=== PATIENT | male | born 1960 | race Hispanic/Latino ===

== ENCOUNTER 2017-04-27 05:04 | Emergency (ER) | payer MEDICARE ==
[2017-04-27 06:12] LABS: Basophils % (Auto) 0.9 % (0.0-1.8); Eosinophils % (Auto) 4.2 % (0.0-4.3); Hematocrit 38.3 % (35.5-45.6); Hemoglobin 12.7 gm/dl (11.8-15.2); Mean Corpuscular HGB Conc 33 % (32-34); Mean Corpuscular Hemoglobin 31 pg (28-32); Mean Corpuscular Volume 93 fl (84-94); Platelet Count 266 K/mm3 (140-440); Red Blood Count 4.11 M/mm3 (3.65-5.03); Red Cell Distribution Width 13.9 % (13.2-15.2); White Blood Count 10.7 K/mm3 (4.5-11.0)
[2017-04-27 06:21] LABS: Calcium 9.4 mg/dL (8.4-10.2); Potassium 4.9 mmol/L (3.6-5.0)
[2017-04-27 07:56] LABS: Urine Drugs of Abuse Note Disclamer
[2017-04-27 08:07] LABS: Bilirubin,Urine NEG (Negative); Blood,Urine NEG (Negative); Ketones,Urine NEG (Negative); Leukocyte Esterase,Urine NEG (Negative); Mucus,Urine FEW /HPF; Nitrite,Urine NEG (Negative); Protein,Urine <15 mg/dL mg/dL (Negative); Urobilinogen,Urine < 2.0 mg/dL (<2.0); WBC,Urine < 1.0 /HPF (0.0-6.0)
[2017-04-27 12:02] VITALS: BP 128/79
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
== END 2017-04-27 14:52 | disposition home or self-care (01) ==
LOC: ED 05:04
DX: F29 Unspecified psychosis not due to a substance or known physiological condition (principal); E11.9 Type 2 diabetes mellitus without complications
CPT/HCPCS: 36415; 80048; 80307; 81001; 85025; 99284; G0480; 80320

== ENCOUNTER 2018-02-08 09:14 | Emergency (ER) | payer MEDICARE ==
[2018-02-08 09:57] VITALS: BP 134/82
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
== END 2018-02-08 14:40 | disposition home or self-care (01) ==
LOC: ED 09:14
DX: F91.8 Other conduct disorders (principal); E11.9 Type 2 diabetes mellitus without complications; Z86.73 Personal history of transient ischemic attack (TIA), and cerebral infarction without residual deficits
CPT/HCPCS: 99282

== ENCOUNTER 2018-02-09 10:49 | Emergency (ER) | payer MEDICARE ==
[2018-02-09 12:30] LABS: Basophils # (Auto) 0.1 K/mm3 (0.0-0.1); Basophils % (Auto) 0.5 % (0.0-1.8); Eosinophils # (Auto) 0.4 K/mm3 (0.0-0.4); Hematocrit 39.7 % (35.5-45.6); Hemoglobin 13.6 gm/dl (11.8-15.2); Lymphocytes # (Auto) 1.2 K/mm3 (1.2-5.4); Lymphocytes % (Auto) 11.3 % (13.4-35.0); Mean Corpuscular HGB Conc 34 % (32-34); Mean Corpuscular Hemoglobin 31 pg (28-32); Mean Corpuscular Volume 90 fl (84-94); Monocytes # (Auto) 0.4 K/mm3 (0.0-0.8); Monocytes % (Auto) 3.9 % (0.0-7.3); Platelet Count 306 K/mm3 (140-440); Red Blood Count 4.39 M/mm3 (3.65-5.03); Red Cell Distribution Width 13.9 % (13.2-15.2)
[2018-02-09 13:04] LABS: Albumin 4.1 g/dL (3.9-5); Calcium 9.6 mg/dL (8.4-10.2)
[2018-02-09] MEDS ORDERED: NACL 0.9% 1000 ML 1,000 ML IV ONE (15:06)
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
== END 2018-02-09 17:42 | disposition home or self-care (01) ==
LOC: ED 10:49
DX: F91.9 Conduct disorder, unspecified (principal); R19.7 Diarrhea, unspecified; F43.9 Reaction to severe stress, unspecified; E11.9 Type 2 diabetes mellitus without complications; Z86.73 Personal history of transient ischemic attack (TIA), and cerebral infarction without residual deficits
CPT/HCPCS: 36415; 80053; 85025; 96360; 99284; G0480; J7030; 80320

== ENCOUNTER 2018-09-29 02:56 | Emergency (ER) | payer MEDICARE ==
[2018-09-29 03:44] LABS: Hematocrit 39.1 % (35.5-45.6); Hemoglobin 13.4 gm/dl (11.8-15.2); Mean Corpuscular HGB Conc 34 % (32-34); Mean Corpuscular Volume 91 fl (84-94); Platelet Count 241 K/mm3 (140-440); Red Blood Count 4.31 M/mm3 (3.65-5.03); Red Cell Distribution Width 13.4 % (13.2-15.2)
[2018-09-29 03:47] LABS: Bilirubin,Urine NEG (Negative); Blood,Urine NEG (Negative); Color,Urine Straw (Yellow); Mucus,Urine FEW /HPF; Urobilinogen,Urine < 2.0 mg/dL (<2.0)
[2018-09-29 04:00] LABS: BUN/Creatinine Ratio 19; Blood Urea Nitrogen 17 mg/dL (9-20); Calcium 9.2 mg/dL (8.4-10.2); Hemolysis Index 4
[2018-09-29] MEDS ORDERED: HumuLIN R IV ONE (04:04)
[2018-09-29] MEDS ORDERED: NACL 0.9% 1000 ML 1,000 ML IV ONE (04:04)
[2018-09-29 04:30] LABS: Basophils # (Auto) 0.1 K/mm3 (0.0-0.1); Basophils % (Auto) 0.9 % (0.0-1.8); Eosinophils # (Auto) 0.2 K/mm3 (0.0-0.4); Eosinophils % (Auto) 2.9 % (0.0-4.3); Lymphocytes # (Auto) 1.5 K/mm3 (1.2-5.4); Lymphocytes % (Auto) 18.6 % (13.4-35.0); Monocytes # (Auto) 0.4 K/mm3 (0.0-0.8); Monocytes % (Auto) 5.4 % (0.0-7.3)
[2018-09-29 05:05] LABS: Total Cells Counted 100
[2018-09-29 05:06] LABS: Large Platelets 1+; Platelet Estimate Consistent w Auto; RBC Morphology Normal
--- NOTE | 2018-09-29 05:22 | Emergency Department Report ---
- General Chief complaint: Skin Rash Stated complaint: RASH Time Seen by Provider: 09/29/18 03:04 Source: EMS Mode of arrival: Stretcher Limitations: No Limitations - History of Present Illness Initial comments: 55-year-old male presents to ED with complaint of rash to his back. Patient reports that it itches. Unknown onset . Patient denies fever. Denies any new product usage such as lotions, soaps, detergents, etc. Patient transported by EMS. Has history of diabetes, fingerstick was done by EMS and was found to be elevated. MD complaint: rash -: unknown Location: back Severity: mild Quality: other (itching) Consistency: constant Improves with: none Worsens with: none Context: none Associated symptoms: itching - Related Data Previous Rx's Medication Instructions Recorded Last Taken Type Diphenoxylate/Atropine [Lomotil] 1 tab PO Q8HR PRN #12 tablet 02/09/18 Unknown Rx Hydrocortisone 1% [Hydrocortisone 1 applicatio TP TID PRN #1 tube 09/29/18 Unknown Rx 1% CREAM] Allergies Allergy/AdvReac Type Severity Reaction Status Date / Time No Known Allergies Allergy Unverified 04/27/17 05:14 Abscess Boil HPI - HPI Chief Complaint: Skin Rash Stated Complaint: RASH Time Seen by Provider: 09/29/18 03:04 Home Medications: Previous Rx's Medication Instructions Recorded Last Taken Type Diphenoxylate/Atropine [Lomotil] 1 tab PO Q8HR PRN #12 tablet 02/09/18 Unknown Rx Hydrocortisone 1% [Hydrocortisone 1 applicatio TP TID PRN #1 tube 09/29/18 Unknown Rx 1% CREAM] Allergies/Adverse Reactions: Allergies Allergy/AdvReac Type Severity Reaction Status Date / Time No Known Allergies Allergy Unverified 04/27/17 05:14 ED Review of Systems ROS: Stated complaint: RASH Other details as noted in HPI Comment: All other systems reviewed and negative Constitutional: denies: chills, fever Gastrointestinal: denies: nausea, vomiting Musculoskeletal: denies: arthralgia Skin: rash ED Past Medical Hx - Past Medical History Hx CVA: Yes Hx Diabetes: Yes Additional medical history: Brain Injury/hemm - Surgical History Additional Surgical History: abscess removed from R frontal lobe 11/2002, CVA X2 2002, 2006, left thumb - Social History Smoking Status: Never Smoker Substance Use Type: None - Medications Home Medications: Home Medications Medication Instructions Recorded Confirmed Last Taken Type Diphenoxylate/Atropine [Lomotil] 1 tab PO Q8HR PRN #12 tablet 02/09/18 Unknown Rx Hydrocortisone 1% [Hydrocortisone 1 applicatio TP TID PRN #1 tube 09/29/18 Unknown Rx 1% CREAM] ED Physical Exam - General Limitations: No Limitations General appearance: alert, in no apparent distress - Head Head exam: Present: atraumatic, normocephalic - Eye Eye exam: Present: normal appearance - ENT ENT exam: Present: mucous membranes moist - Neck Neck exam: Present: normal inspection - Respiratory Respiratory exam: Present: normal lung sounds bilaterally. Absent: respiratory distress - Cardiovascular Cardiovascular Exam: Present: regular rate, normal rhythm - GI/Abdominal GI/Abdominal exam: Present: soft. Absent: distended - Extremities Exam Extremities exam: Present: full ROM - Back Exam Back exam: Present: full ROM - Neurological Exam Neurological exam: Present: alert, oriented X3 - Psychiatric Psychiatric exam: Present: normal affect, normal mood - Skin Skin exam: Present: warm, dry, rash (erythematous, dry, excoriated) ED Course Vital Signs 09/29/18 09/29/18 03:00 09:33 Temperature 98.3 F 98.2 F Pulse Rate 78 88 Respiratory 20 16 Rate Blood Pressure 153/80 Blood Pressure 153/80 145/82 [Right] O2 Sat by Pulse 96 99 Oximetry ED Medical Decision Making - Lab Data Result diagrams: 09/29/18 03:29 09/29/18 03:29 - Medical Decision Making 58 yo male presented to the ED with rash, however found to be hyperglycemic with glucose in the 400s. Patient not in DKA. IV fluids and insulin given. Glucose did improve. Patient discharged home with prescription for topical steroid cream for rash. - Differential Diagnosis hyperglycemia, DKA, dermatitis Critical care attestation.: If time is entered above; I have spent that time in minutes in the direct care of this critically ill patient, excluding procedure time. ED Disposition Clinical Impression: Dermatitis, Hyperglycemia Disposition: DC-01 TO HOME OR SELFCARE Is pt being admited?: No Condition: Stable Instructions: Contact Dermatitis (ED), Diabetic Hyperglycemia (ED) Prescriptions: Hydrocortisone 1% [Hydrocortisone 1% CREAM] 1 applicatio TP TID PRN #1 tube PRN Reason: Rash Referrals: PRIMARY CARE, [Primary Care Provider] - 3-5 Days [facility] [Provider Group] - 3-5 Days Time of Disposition: 05:21
[2018-09-29 09:34] VITALS: BP 145/82
== END 2018-09-29 09:34 | disposition home or self-care (01) ==
LOC: ED 02:56
DX: L30.9 Dermatitis, unspecified (principal); E11.65 Type 2 diabetes mellitus with hyperglycemia; Z86.73 Personal history of transient ischemic attack (TIA), and cerebral infarction without residual deficits
CPT/HCPCS: 36415; 80048; 81001; 82805; 82962; 85007; 85025; 96361; 96374; 99284; J7030; J1815

== ENCOUNTER 2018-11-26 00:06 | Emergency (ER) | payer MEDICARE ==
[2018-11-26] MEDS ORDERED: NACL 0.9% 1000 ML 1,000 ML IV ONE (00:57)
[2018-11-26] MEDS ORDERED: LANTUS SUB-Q ONE (00:59)
[2018-11-26 01:06] LABS: Basophils # (Auto) 0.1 K/mm3 (0.0-0.1); Basophils % (Auto) 0.7 % (0.0-1.8); Eosinophils # (Auto) 0.2 K/mm3 (0.0-0.4); Hematocrit 38.3 % (35.5-45.6); Hemoglobin 13.3 gm/dl (11.8-15.2); Lymphocytes # (Auto) 1.7 K/mm3 (1.2-5.4); Lymphocytes % (Auto) 20.6 % (13.4-35.0); Mean Corpuscular HGB Conc 35 % (32-34); Mean Corpuscular Volume 89 fl (84-94); Monocytes # (Auto) 0.5 K/mm3 (0.0-0.8); Monocytes % (Auto) 6.1 % (0.0-7.3); Platelet Count 217 K/mm3 (140-440); Red Blood Count 4.29 M/mm3 (3.65-5.03); Red Cell Distribution Width 13.6 % (13.2-15.2)
[2018-11-26 01:24] LABS: Alanine Aminotransferase 11 units/L (7-56); Albumin 3.5 g/dL (3.9-5); BUN/Creatinine Ratio 19; Blood Urea Nitrogen 19 mg/dL (9-20); Calcium 9.2 mg/dL (8.4-10.2); Hemolysis Index 4
[2018-11-26] MEDS ORDERED: HumuLIN R IV ONE (01:43)
--- NOTE | 2018-11-26 01:56 | Emergency Department Report ---
ED General Adult HPI - General Chief complaint: Hyperglycemia Stated complaint: HYPERGLYCEMIA Time Seen by Provider: 11/26/18 00:35 Source: patient, EMS Mode of arrival: Stretcher Limitations: Physical Limitation - History of Present Illness Initial comments: Patient is a 58-year-old male past medical history of diabetes who presents with hyperglycemia. Patient states that he's been out of his insulin for a week patient denies having any pain any fevers and chills and his shortness of breath. Patient's blood sugar was 500 when he checked it. A few hours ago. Patient does not have any abdominal pain and vomiting - Related Data Previous Rx's Medication Instructions Recorded Last Taken Type Diphenoxylate/Atropine [Lomotil] 1 tab PO Q8HR PRN #12 tablet 02/09/18 Unknown Rx Hydrocortisone 1% [Hydrocortisone 1 applicatio TP TID PRN #1 tube 09/29/18 Unknown Rx 1% CREAM] Allergies Allergy/AdvReac Type Severity Reaction Status Date / Time No Known Allergies Allergy Verified 11/26/18 01:03 ED Review of Systems ROS: Stated complaint: HYPERGLYCEMIA Other details as noted in HPI Constitutional: denies: chills, fever Eyes: denies: eye pain, eye discharge, vision change ENT: denies: ear pain, throat pain Respiratory: denies: cough, shortness of breath, wheezing Cardiovascular: denies: chest pain, palpitations Endocrine: no symptoms reported Gastrointestinal: denies: abdominal pain, nausea, diarrhea Genitourinary: denies: urgency, dysuria Musculoskeletal: denies: back pain, joint swelling, arthralgia Skin: denies: rash, lesions Neurological: denies: headache, weakness, paresthesias Psychiatric: denies: anxiety, depression Hematological/Lymphatic: denies: easy bleeding, easy bruising ED Past Medical Hx - Past Medical History Previous Medical History?: Yes 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) Hx Diabetes: Yes Additional medical history: Brain Injury/hemm - Surgical History Past Surgical History?: Yes Additional Surgical History: abscess removed from R frontal lobe 11/2002, CVA X2 2002, 2006, left thumb 1981 - Social History Smoking Status: Never Smoker Substance Use Type: None - Medications Home Medications: Home Medications Medication Instructions Recorded Confirmed Last Taken Type Diphenoxylate/Atropine [Lomotil] 1 tab PO Q8HR PRN #12 tablet 02/09/18 Unknown Rx Hydrocortisone 1% [Hydrocortisone 1 applicatio TP TID PRN #1 tube 09/29/18 Unknown Rx 1% CREAM] ED Physical Exam - General Limitations: Physical Limitation General appearance: alert, in no apparent distress - Head Head exam: Present: atraumatic, normocephalic - Eye Eye exam: Present: normal appearance - ENT ENT exam: Present: mucous membranes moist - Neck Neck exam: Present: normal inspection - Respiratory Respiratory exam: Present: normal lung sounds bilaterally. Absent: respiratory distress - Cardiovascular Cardiovascular Exam: Present: regular rate, normal rhythm. Absent: systolic murmur, diastolic murmur, rubs, gallop - GI/Abdominal GI/Abdominal exam: Present: soft, normal bowel sounds - Rectal Rectal exam: Present: deferred - Extremities Exam Extremities exam: Present: normal inspection - Back Exam Back exam: Present: normal inspection - Neurological Exam Neurological exam: Present: alert, oriented X3 - Psychiatric Psychiatric exam: Present: normal affect, normal mood - Skin Skin exam: Present: warm, dry, intact, normal color. Absent: rash ED Course Vital Signs 11/26/18 11/26/18 11/26/18 00:37 01:00 02:01 Temperature 98.2 F Pulse Rate 76 74 70 Respiratory 14 17 13 Rate Blood Pressure 143/92 132/86 155/104 O2 Sat by Pulse 98 97 97 Oximetry 11/26/18 03:00 Temperature Pulse Rate 74 Respiratory 15 Rate Blood Pressure 160/104 O2 Sat by Pulse 98 Oximetry ED Medical Decision Making - Lab Data Result diagrams: 11/26/18 00:52 11/26/18 00:52 Lab Results 11/26/18 11/26/18 11/26/18 Range/Units 00:38 00:52 00:52 WBC 8.3 (4.5-11.0) K/mm3 RBC 4.29 (3.65-5.03) M/mm3 Hgb 13.3 (11.8-15.2) gm/dl Hct 38.3 (35.5-45.6) % MCV 89 (84-94) fl MCH 31 (28-32) pg MCHC 35 H (32-34) % RDW 13.6 (13.2-15.2) % Plt Count 217 (140-440) K/mm3 Lymph % (Auto) 20.6 (13.4-35.0) % Schleicher % (Auto) 6.1 (0.0-7.3) % Eos % (Auto) 3.0 (0.0-4.3) % Baso % (Auto) 0.7 (0.0-1.8) % Lymph # 1.7 (1.2-5.4) K/mm3 Schleicher # 0.5 (0.0-0.8) K/mm3 Eos # 0.2 (0.0-0.4) K/mm3 Baso # 0.1 (0.0-0.1) K/mm3 Seg Neutrophils % 69.6 (40.0-70.0) % Seg Neutrophils # 5.8 (1.8-7.7) K/mm3 Sodium 134 L (137-145) mmol/L Potassium 3.9 (3.6-5.0) mmol/L Chloride 96.3 L (98-107) mmol/L Carbon Dioxide 24 (22-30) mmol/L Anion Gap 18 mmol/L BUN 19 (9-20) mg/dL Creatinine 1.0 (0.8-1.5) mg/dL Estimated GFR > 60 ml/min BUN/Creatinine Ratio 19 % Glucose 498 H (75-100) mg/dL POC Glucose 388 H (70-105) Calcium 9.2 (8.4-10.2) mg/dL Total Bilirubin 0.30 (0.1-1.2) mg/dL AST 7 (5-40) units/L ALT 11 (7-56) units/L Alkaline Phosphatase 100 (35-129) units/L Total Protein 6.2 L (6.3-8.2) g/dL Albumin 3.5 L (3.9-5) g/dL Albumin/Globulin Ratio 1.3 % Critical care attestation.: If time is entered above; I have spent that time in minutes in the direct care of this critically ill patient, excluding procedure time. ED Disposition Clinical Impression: Hyperglycemia Disposition: DC-01 TO HOME OR SELFCARE Is pt being admited?: No Does the pt Need Aspirin: No Condition: Stable Instructions: Diabetic Hyperglycemia (ED) Referrals: ELEAZAR AREVALO MD [Staff Physician] - 3-5 Days
[2018-11-26 06:25] VITALS: BP 148/84
== END 2018-11-26 06:25 | disposition home or self-care (01) ==
LOC: ED 00:06
DX: E11.65 Type 2 diabetes mellitus with hyperglycemia (principal); Z86.73 Personal history of transient ischemic attack (TIA), and cerebral infarction without residual deficits
CPT/HCPCS: 36415; 80053; 82962; 85025; 96361; 96372; 96374; 99284; J7030; J1815

== ENCOUNTER 2021-05-19 07:29 | Emergency (ER) | payer MEDICARE | END 2021-05-19 22:16 | LOC: ED 07:29 | DX: M79.605 Pain in left leg (principal); M79.604 Pain in right leg; Z53.21 Procedure and treatment not carried out due to patient leaving prior to being seen by health care provider ==

== ENCOUNTER 2021-06-06 12:58 | Inpatient (IN) | payer MEDICARE ==
[2021-06-06] MEDS ORDERED: SODIUM CHLORIDE 0.9% 1000 ML 1,000 ML IV ONE (13:16)
--- NOTE | 2021-06-06 14:03 | XRay Report ---
CHEST 1 VIEW INDICATION / CLINICAL INFORMATION: dizziness. COMPARISON: None available. FINDINGS: SUPPORT DEVICES: None. HEART / MEDIASTINUM: No significant abnormality. LUNGS / PLEURA: No significant pulmonary or pleural abnormality. No pneumothorax. ADDITIONAL FINDINGS: No significant additional findings. IMPRESSION: 1. No acute findings. Signer Name: Kenyatta Blunt MD Signed: 06/06/2021 1:59 PM Workstation Name: [id number]
[2021-06-06 14:15] LABS: Basophils % (Auto) 0.2 % (0.0-1.8); Eosinophils # (Auto) 0.2 K/mm3 (0.0-0.4); Hematocrit 33.4 % (35.5-45.6); Hemoglobin 11.4 gm/dl (11.8-15.2); Lymphocytes % (Auto) 6.1 % (13.4-35.0); Mean Corpuscular HGB Conc 34 % (32-34); Mean Corpuscular Volume 92 fl (84-94); Monocytes # (Auto) 1.1 K/mm3 (0.0-0.8); Monocytes % (Auto) 6.6 % (0.0-7.3); Platelet Count 344 K/mm3 (140-440); Red Blood Count 3.65 M/mm3 (3.65-5.03); Red Cell Distribution Width 13.9 % (13.2-15.2)
[2021-06-06 14:26] LABS: INR 0.96 (0.87-1.13)
[2021-06-06 14:27] LABS: Partial Thromboplastin Time 37.1 Sec. (24.2-36.6)
[2021-06-06 14:31] LABS: Alanine Aminotransferase 54 units/L (7-56); BUN/Creatinine Ratio 27; Blood Urea Nitrogen 27 mg/dL (9-20); Calcium 9.3 mg/dL (8.4-10.2); Hemolysis Index 5
--- NOTE | 2021-06-06 14:34 | Emergency Department Report ---
<AMALIA JAMES - Last Filed: 06/06/21 21:53> ED General Adult HPI - General Chief complaint: Pain General Stated complaint: FELLING WEAK, HEADACHE Time Seen by Provider: 06/06/21 13:06 - Related Data Home Medications Medication Instructions Recorded Confirmed Last Taken Gabapentin [Neurontin] 600 mg PO Q8H 06/06/21 06/06/21 Unknown Allergies Allergy/AdvReac Type Severity Reaction Status Date / Time No Known Allergies Allergy Verified 11/26/18 01:03 ED Past Medical Hx - Medications Home Medications: Home Medications Medication Instructions Recorded Confirmed Last Taken Type Gabapentin [Neurontin] 600 mg PO Q8H 06/06/21 06/06/21 Unknown History ED Course - Reevaluation(s) Reevaluation #1: 06/06/21 19:41 Patient is signed out to myself by the previous physician. I went back to speak to the patient. The patient to be complained of lightheadedness and generalized weakness. He denies headache, chest pain, abdominal pain. He complains of chronic bilateral lower extremity leg pain. He has a presumed known diagnosis of neuropathic pain in his lower extremities, and was recently prescribed gabapentin while at [facility]. I called up his caregiver, Ms. Gill; [phone] Home medications include Metformin, 1000 mg twice daily, BuSpar, 15 mg twice daily, amantadine, 10 mg twice daily, benazepril, Lexapro, lisinopril, fenofibrate, aspirin, valproate. She also reports that the patient was recently admitted to [facility] for 2 days, for unclear reasons. She reports his NovoLog was stopped, and they started Humulin. Today, the patient is found to have persistent recurrent hypoglycemia. Glucose is 71, and then 53. He did become altered and encephalopathic. As needed dextrose has been ordered, and I have also ordered him for dextrose infusion. When the patient was awake, and alert and oriented, I went and spoke to him. He tells me that he lives by himself, and the aforementioned caregiver is available at any time of the day, and stays with him for varying length of hours. He reports that he typically walks at home without a cane or walker. He reports that he handles his own finances, and reports that he is able to typically dress himself, feed himself, bathe himself without significant assistance. He denies headache, neck pain, chest pain, abdominal pain, shortness of breath and urinary symptoms. He is not COVID-19 vaccinated. Patient and I got up, and he was able to ambulate with a broad-based gait. He tells me this is his typical gait. Suspect that lightheadedness is secondary to hypoglycemia, likely secondary to recent insulin change. Suspect that leukocytosis is a stress reaction. He has no right upper quadrant pain, tenderness, rebound, guarding or peritoneal signs. CT scan abdomen pelvis, specifically regarding gallbladder findings as reviewed and appreciated, but I do not clinically suspect a cholecystitis at this time. However, will obtain right upper quadrant ultrasound. TSH is decreased. Free T4 is elevated. This is unlikely to represent thyroid storm, on the Cabrera-Wartofsky Point Scale 20 points Unlikely to represent thyroid storm However, we will medicate empirically with propanolol, methimazole, Lugol's solution, and hydrocortisone. Dextrose infusion is ordered. Admit patient to the medical service for hypoglycemia, hypothyroidism. This patient lives by himself, and has repeatedly dropped his blood glucose levels while here in the emergency room, and is not safe to be discharged home. 06/06/21 20:03 06/06/21 21:53 Dr Webster to admit to [facility] ED Medical Decision Making - Lab Data Result diagrams: 06/06/21 13:45 06/06/21 13:45 Vital Signs 06/06/21 06/06/21 06/06/21 13:06 13:08 13:15 Temperature 98.6 F Pulse Rate 83 81 80 Respiratory 10 L 18 13 Rate Blood Pressure 138/81 138/81 O2 Sat by Pulse 99 99 100 Oximetry 06/06/21 06/06/21 06/06/21 13:31 13:45 14:01 Temperature Pulse Rate 82 81 78 Respiratory 12 14 18 Rate Blood Pressure 138/81 125/38 124/77 O2 Sat by Pulse 99 100 99 Oximetry 06/06/21 06/06/21 06/06/21 14:15 14:31 14:45 Temperature Pulse Rate 78 84 83 Respiratory 12 11 L 20 Rate Blood Pressure 158/89 160/88 168/113 O2 Sat by Pulse 99 99 100 Oximetry 06/06/21 06/06/21 06/06/21 14:49 15:01 15:15 Temperature Pulse Rate 83 84 Respiratory 18 13 18 Rate Blood Pressure 160/88 141/85 O2 Sat by Pulse 99 99 99 Oximetry 06/06/21 06/06/21 06/06/21 15:31 15:45 16:01 Temperature Pulse Rate 82 89 84 Respiratory 12 12 13 Rate Blood Pressure 143/87 151/88 151/88 O2 Sat by Pulse 99 98 99 Oximetry 06/06/21 19:36 Temperature Pulse Rate Respiratory 18 Rate Blood Pressure O2 Sat by Pulse Oximetry Lab Results 06/06/21 06/06/21 06/06/21 Range/Units 13:45 13:45 13:45 WBC 16.8 H (4.5-11.0) K/mm3 RBC 3.65 (3.65-5.03) M/mm3 Hgb 11.4 L (11.8-15.2) gm/dl Hct 33.4 L (35.5-45.6) % MCV 92 (84-94) fl MCH 31 (28-32) pg MCHC 34 (32-34) % RDW 13.9 (13.2-15.2) % Plt Count 344 (140-440) K/mm3 Lymph % (Auto) 6.1 L (13.4-35.0) % Parke % (Auto) 6.6 (0.0-7.3) % Eos % (Auto) 1.0 (0.0-4.3) % Baso % (Auto) 0.2 (0.0-1.8) % Lymph # (Auto) 1.0 L (1.2-5.4) K/mm3 Parke # (Auto) 1.1 H (0.0-0.8) K/mm3 Eos # (Auto) 0.2 (0.0-0.4) K/mm3 Baso # (Auto) 0.0 (0.0-0.1) K/mm3 Seg Neutrophils % 86.1 H (40.0-70.0) % Seg Neutrophils # 14.4 H (1.8-7.7) K/mm3 PT 13.4 (12.2-14.9) Sec. INR 0.96 (0.87-1.13) APTT 37.1 H (24.2-36.6) Sec. D-Dimer 396.80 H (0-234) ng/mlDDU Sodium 139 (137-145) mmol/L Potassium 4.2 (3.6-5.0) mmol/L Chloride 103.0 (98-107) mmol/L Carbon Dioxide 27 (22-30) mmol/L Anion Gap 13 mmol/L BUN 27 H (9-20) mg/dL Creatinine 1.0 (0.8-1.3) mg/dL Estimated GFR > 60 ml/min BUN/Creatinine Ratio 27 % Glucose 71 L (75-100) mg/dL POC Glucose (70-105) mg/dL Calcium 9.3 (8.4-10.2) mg/dL Total Bilirubin 0.20 (0.1-1.2) mg/dL Direct Bilirubin < 0.2 (0-0.2) mg/dL Indirect Bilirubin 0.0 mg/dL AST 44 H (5-40) units/L ALT 54 (7-56) units/L Alkaline Phosphatase 437 H (35-129) units/L Troponin T 0.013 (0.00-0.029) ng/mL Total Protein 6.6 (6.3-8.2) g/dL Albumin 3.0 L (3.9-5) g/dL Albumin/Globulin Ratio 0.8 % TSH (0.270-4.200) mlU/mL Free T4 (0.76-1.46) ng/dL 06/06/21 06/06/21 06/06/21 Range/Units 16:54 18:47 Unknown WBC (4.5-11.0) K/mm3 RBC (3.65-5.03) M/mm3 Hgb (11.8-15.2) gm/dl Hct (35.5-45.6) % MCV (84-94) fl MCH (28-32) pg MCHC (32-34) % RDW (13.2-15.2) % Plt Count (140-440) K/mm3 Lymph % (Auto) (13.4-35.0) % Parke % (Auto) (0.0-7.3) % Eos % (Auto) (0.0-4.3) % Baso % (Auto) (0.0-1.8) % Lymph # (Auto) (1.2-5.4) K/mm3 Parke # (Auto) (0.0-0.8) K/mm3 Eos # (Auto) (0.0-0.4) K/mm3 Baso # (Auto) (0.0-0.1) K/mm3 Seg Neutrophils % (40.0-70.0) % Seg Neutrophils # (1.8-7.7) K/mm3 PT (12.2-14.9) Sec. INR (0.87-1.13) APTT (24.2-36.6) Sec. D-Dimer (0-234) ng/mlDDU Sodium (137-145) mmol/L Potassium (3.6-5.0) mmol/L Chloride (98-107) mmol/L Carbon Dioxide (22-30) mmol/L Anion Gap mmol/L BUN (9-20) mg/dL Creatinine (0.8-1.3) mg/dL Estimated GFR ml/min BUN/Creatinine Ratio % Glucose (75-100) mg/dL POC Glucose 53 L (70-105) mg/dL Calcium (8.4-10.2) mg/dL Total Bilirubin (0.1-1.2) mg/dL Direct Bilirubin (0-0.2) mg/dL Indirect Bilirubin mg/dL AST (5-40) units/L ALT (7-56) units/L Alkaline Phosphatase (35-129) units/L Troponin T (0.00-0.029) ng/mL Total Protein (6.3-8.2) g/dL Albumin (3.9-5) g/dL Albumin/Globulin Ratio % TSH 0.122 L (0.270-4.200) mlU/mL Free T4 1.58 H (0.76-1.46) ng/dL - EKG Data Interpretation: other - Radiology Data Radiology results: pending, report reviewed, image reviewed CHEST 1 VIEW INDICATION / CLINICAL INFORMATION: dizziness. COMPARISON: None available. FINDINGS: SUPPORT DEVICES: None. HEART / MEDIASTINUM: No significant abnormality. LUNGS / PLEURA: No significant pulmonary or pleural abnormality. No pneumothorax. ADDITIONAL FINDINGS: No significant additional findings. IMPRESSION: 1. No acute findings. Signer Name: Kenyatta Blunt MD Signed: 06/06/2021 12:59 PM Workstation Name: [id number] DUPLEX DOPPLER LOWER EXTREMITY VEINS, BILATERAL INDICATION: pain. TECHNIQUE: Duplex doppler imaging was performed through the veins of both lower extremities using venous compression and other maneuvers. COMPARISON: None available. FINDINGS: Right Common Femoral vein: Negative. Right Superficial Femoral vein: Negative. Right Popliteal vein: Negative. Right Calf veins: Negative. Left Common Femoral vein: Negative. Left Superficial Femoral vein: Negative. Left Popliteal vein: Negative. Left Calf veins: Negative. Additional findings: None. IMPRESSION: 1. No sonographic evidence for DVT in either lower extremity. Signer Name: Kenyatta Blunt MD Signed: 06/06/2021 4:02 PM Workstation Name: [id number] CT head/brain wo con INDICATION / CLINICAL INFORMATION: 61 years Male; Weakness, dizziness and lightheadedness x 5 days. TECHNIQUE: Routine CT head without contrast. All CT scans at this location are performed using CT dose reduction for ALARA by means of automated exposure control. COMPARISON: None. FINDINGS: BRAIN / INTRACRANIAL CONTENTS: There is left frontal craniotomy with underlying encephalomalacia involving left frontal lobe. There is also notable encephalomalacia involving posterior left cerebrum compatible with old left HAND GLASS CUTTER infarct. There is associated ex vacuo dilatation of the left lateral ventricle. Additional small lacunar infarct within the right thalamus. There is no clear CT evidence of acute intracranial hemorrhage or significant mass effect. ORBITS: No significant abnormality of visualized orbits. SINUSES / MASTOIDS: No significant abnormality in the visualized paranasal sinuses or mastoid air cells. CRANIOCERVICAL JUNCTION: No significant abnormality. ADDITIONAL FINDINGS: None. IMPRESSION: 1. There is left frontal craniotomy with underlying encephalomalacia involving left frontal lobe. 2. There is a left HAND GLASS CUTTER infarct also with encephalomalacia. 3 at. There is no clear CT evidence of acute intracranial hemorrhage. Signer Name: Amalia Valadez MD Signed: 06/06/2021 4:33 PM Workstation Name: [id number] CTA CHEST WITH IV CONTRAST INDICATION / CLINICAL INFORMATION: Weakness, dizziness x 5 days, elevated D-dimer. TECHNIQUE: Axial CT images were obtained through the chest after injection of 100 cc IV contrast. 3 plane MIP and/or 3D reconstructions were produced. All CT scans at this location are performed using CT dose reduction for ALARA by means of automated exposure control. COMPARISON: 06/06/2021 chest radiograph FINDINGS: PULMONARY ARTERIES: No pulmonary emboli. THORACIC AORTA: No significant abnormality. HEART: No significant abnormality. CORONARY ARTERIES: No significant calcification. PLEURA: No pleural effusion. No pneumothorax. LYMPH NODES: No significant adenopathy. LUNGS: No acute air space or interstitial disease. ADDITIONAL FINDINGS: There is florid bilateral gynecomastia. UPPER ABDOMEN: The gallbladder is abnormal. The gallbladder is distended with suggestion of gallbladder wall thickening. Layering gallstones are seen within the gallbladder lumen. SKELETAL STRUCTURES: No significant osseous abnormality. IMPRESSION: 1. No CT evidence for pulmonary embolism. 2. No acute pulmonary or pleural disease. 3. Abnormal appearance of the gallbladder suggesting acute cholecystitis. Please correlate clinically. Signer Name: Kenyatta Blunt MD Signed: 06/06/2021 4:45 PM Workstation Name: [employer] CT abdomen pelvis w con INDICATION / CLINICAL INFORMATION: Pt also complains of abdominal pain. TECHNIQUE: Axial CT imaging of abdomen and pelvis was obtained with 100 cc IV contrast. Coronal and sagittal reformatted imaging obtained and reviewed. All CT scans at this location are performed using CT dose reduction for ALARA by means of automated exposure control. COMPARISON: None available. FINDINGS: CT abdomen with contrast demonstrates normal appearance of the liver, spleen, pancreas, kidneys, and adrenal glands. However, the gallbladder is abnormal. The gallbladder is distended with gallbladder wall thickening. Layerin g small gallstones are seen within the gallbladder lumen. There is mild intrahepatic biliary dilatation noted. The appearance is certainly very suggestive for acute cholecystitis. CT pelvis with contrast demonstrates mildly enlarged prostate gland. No pelvic mass, free fluid, or focal inflammatory changes noted. A normal appendix is present in the right lower quadrant. GI tract is grossly unremarkable. Visualized lung bases are clear. No significant acute osseous abnormality noted. IMPRESSION: 1. Abnormal appearance of the gallbladder. Gallbladder is abnormally distended with gallbladder wall thickening and gallstones. The appearance is consistent with acute cholecystitis. 2. No other significant finding within the abdomen or pelvis. Signer Name: Kenyatta Blunt MD Signed: 06/06/2021 4:56 PM Workstation Name: [employer] Critical Care Time: Yes Critical Care Time: Critical care time includes multiple bedside reevaluations, interpretation of laboratory studies, radiology studies, time spent interviewing patient, performing history and physical examination, speaking to caregiver, obtaining collateral information, and coordinating medical care. This does not include procedure time. ED Disposition Clinical Impression: Hypoglycemia, Hyperthyroidism, Lightheadedness, Bilateral leg pain, History of stroke Disposition: ADMITTED INPATIENT Is pt being admited?: Yes Does the pt Need Aspirin: No Condition: Good <RILEY BECERRIL - Last Filed: 06/07/21 08:30> ED General Adult HPI - General Source: patient, EMS Mode of arrival: Stretcher Limitations: No Limitations - History of Present Illness Initial comments: 61-year-old male, history of hemorrhagic CVA, diabetes, presents to ED with generalized weakness and lightheadedness. Patient states this has been ongoing x5 days. He also reports pain in his bilateral lower legs for several weeks. Patient received a prescription for gabapentin on yesterday for presumed neuropathy, but has not yet started the medication. Patient denies any fever or chills, vomiting or diarrhea, abdominal pain, chest pain, shortness of breath. Patient reports some headache and nasal congestion. Patient is not vaccinated against COVID-19. EMS states patient was hypotensive en route, with systolic BP in the 70s. However initial blood pressure here in the ED is 138/81. -: days(s) (5) Consistency: constant Improves with: none Worsens with: none Associated Symptoms: weakness. denies: chest pain, fever/chills, headaches, nausea/vomiting, shortness of breath, syncope ED Review of Systems ROS: Stated complaint: FELLING WEAK, HEADACHE Other details as noted in HPI Comment: All other systems reviewed and negative Constitutional: denies: chills, fever ENT: congestion Respiratory: denies: cough, shortness of breath Cardiovascular: denies: chest pain Gastrointestinal: denies: abdominal pain, nausea, vomiting, diarrhea Genitourinary: denies: frequency Neurological: headache ED Past Medical Hx - Past Medical History Previous Medical History?: Yes Hx CVA: Yes Hx Diabetes: Yes Additional medical history: Brain Injury/hemm - Surgical History Additional Surgical History: abscess removed from R frontal lobe 11/2002, CVA X2 2002, 2006, left thumb - Social History Smoking Status: Unknown if ever smoked ED Physical Exam - General Limitations: No Limitations General appearance: alert, in no apparent distress - Head Head exam: Present: atraumatic, normocephalic - Eye Eye exam: Present: normal appearance, EOMI - ENT ENT exam: Present: mucous membranes moist - Neck Neck exam: Present: normal inspection - Respiratory Respiratory exam: Present: normal lung sounds bilaterally. Absent: respiratory distress - Cardiovascular Cardiovascular Exam: Present: regular rate, normal rhythm - GI/Abdominal GI/Abdominal exam: Present: soft, tenderness. Absent: distended - Extremities Exam Extremities exam: Present: normal inspection, calf tenderness. Absent: pedal edema (no lower leg edema present) - Neurological Exam Neurological exam: Present: alert, oriented X3, other (Strength 5 out of 5 and all extremities except for baseline weakness in the left upper extremity) - Psychiatric Psychiatric exam: Present: normal affect, normal mood - Skin Skin exam: Present: warm, dry, intact, normal color ED Course Vital Signs 06/06/21 06/06/21 06/06/21 13:06 13:08 13:15 Temperature 98.6 F Pulse Rate 83 81 80 Respiratory 10 L 18 13 Rate Blood Pressure 138/81 138/81 O2 Sat by Pulse 99 99 100 Oximetry 06/06/21 06/06/21 06/06/21 13:31 13:45 14:01 Temperature Pulse Rate 82 81 78 Respiratory 12 14 18 Rate Blood Pressure 138/81 125/38 124/77 O2 Sat by Pulse 99 100 99 Oximetry 06/06/21 06/06/21 06/06/21 14:15 14:31 14:45 Temperature Pulse Rate 78 84 83 Respiratory 12 11 L 20 Rate Blood Pressure 158/89 160/88 168/113 O2 Sat by Pulse 99 99 100 Oximetry 06/06/21 06/06/21 06/06/21 14:49 15:01 15:15 Temperature Pulse Rate 83 84 Respiratory 18 13 18 Rate Blood Pressure 160/88 141/85 O2 Sat by Pulse 99 99 99 Oximetry 06/06/21 06/06/21 06/06/21 15:31 15:45 16:01 Temperature Pulse Rate 82 89 84 Respiratory 12 12 13 Rate Blood Pressure 143/87 151/88 151/88 O2 Sat by Pulse 99 98 99 Oximetry 06/06/21 06/06/21 06/06/21 19:01 19:15 19:31 Temperature Pulse Rate Respiratory Rate Blood Pressure 151/88 151/88 151/88 O2 Sat by Pulse 99 100 98 Oximetry 06/06/21 06/06/21 06/06/21 19:36 19:45 19:50 Temperature Pulse Rate 89 Respiratory 18 16 16 Rate Blood Pressure 140/76 O2 Sat by Pulse 99 99 Oximetry 06/06/21 06/06/21 06/06/21 20:01 20:15 20:16 Temperature Pulse Rate 85 94 H 86 Respiratory 15 16 17 Rate Blood Pressure 147/85 127/83 160/88 O2 Sat by Pulse 99 100 100 Oximetry 06/06/21 06/06/21 06/06/21 20:18 20:31 20:36 Temperature Pulse Rate 85 82 Respiratory 23 18 Rate Blood Pressure 127/83 150/78 O2 Sat by Pulse 99 Oximetry 06/06/21 06/06/21 06/06/21 20:45 21:01 21:15 Temperature Pulse Rate 81 Respiratory 24 16 11 L Rate Blood Pressure 127/83 148/83 146/85 O2 Sat by Pulse 94 100 100 Oximetry 06/06/21 06/06/21 06/06/21 21:31 21:45 22:01 Temperature Pulse Rate 73 73 Respiratory 12 13 16 Rate Blood Pressure 141/80 151/93 154/95 O2 Sat by Pulse 100 100 100 Oximetry 06/06/21 06/06/21 06/06/21 22:15 22:31 22:45 Temperature Pulse Rate 67 Respiratory 17 16 Rate Blood Pressure 140/94 155/91 146/85 O2 Sat by Pulse 100 99 100 Oximetry 06/06/21 06/06/21 06/06/21 23:01 23:15 23:31 Temperature Pulse Rate 76 72 Respiratory 16 20 Rate Blood Pressure 149/80 160/82 143/89 O2 Sat by Pulse 99 95 100 Oximetry 06/06/21 06/07/21 06/07/21 23:45 00:01 00:15 Temperature Pulse Rate 74 70 68 Respiratory 14 16 14 Rate Blood Pressure 136/72 152/74 136/72 O2 Sat by Pulse 99 100 99 Oximetry 06/07/21 06/07/21 06/07/21 00:31 00:45 01:01 Temperature Pulse Rate 70 70 73 Respiratory 13 14 15 Rate Blood Pressure 143/81 141/82 133/77 O2 Sat by Pulse 99 98 96 Oximetry 06/07/21 06/07/21 06/07/21 01:15 01:31 01:45 Temperature Pulse Rate 75 75 75 Respiratory 14 12 13 Rate Blood Pressure 122/73 116/69 116/69 O2 Sat by Pulse 97 99 99 Oximetry 06/07/21 06/07/21 06/07/21 02:01 02:15 02:31 Temperature Pulse Rate 72 71 72 Respiratory 13 12 13 Rate Blood Pressure 118/69 107/65 107/66 O2 Sat by Pulse 98 98 95 Oximetry 06/07/21 06/07/21 06/07/21 02:45 03:01 03:15 Temperature Pulse Rate 71 76 77 Respiratory 13 13 13 Rate Blood Pressure 106/66 103/67 108/65 O2 Sat by Pulse 98 98 96 Oximetry 06/07/21 06/07/21 06/07/21 03:31 03:45 04:01 Temperature Pulse Rate 75 74 71 Respiratory 12 Rate Blood Pressure 105/73 111/70 119/72 O2 Sat by Pulse 99 99 97 Oximetry 06/07/21 06/07/21 06/07/21 04:15 04:31 04:45 Temperature Pulse Rate 73 77 76 Respiratory 12 13 12 Rate Blood Pressure 116/73 100/64 112/67 O2 Sat by Pulse 99 98 98 Oximetry 06/07/21 06/07/21 06/07/21 05:01 05:15 05:31 Temperature Pulse Rate 76 80 73 Respiratory 13 13 Rate Blood Pressure 108/66 113/70 109/78 O2 Sat by Pulse 99 99 99 Oximetry 06/07/21 06/07/21 06/07/21 05:45 06:01 06:15 Temperature Pulse Rate 81 80 77 Respiratory 14 13 Rate Blood Pressure 117/65 111/66 122/71 O2 Sat by Pulse 99 99 98 Oximetry - Reevaluation(s) Reevaluation #1: 06/06/21 15:50 Patient had an episode of brown, watery stool. Patient cleaned by RN. ED Medical Decision Making - Lab Data Result diagrams: 06/07/21 05:10 06/07/21 05:10 - EKG Data EKG shows normal: sinus rhythm, intervals, ST-T waves Rate: normal - EKG Data Interpretation: other (RBBB) - Radiology Data Radiology results: report reviewed, image reviewed - Medical Decision Making 61-year-old male presents to ED with generalized weakness, lightheadedness, and bilateral leg pain. EMS reports patient hypotensive in the field, however blood pressure has been normal and stable here in the ED. Patient is afebrile, however he does have elevated WBCs of 16.8. Patient was given a urinal to obtain urine sample, however he missed the urinal to urinated in the bed. Nurse attempted to straight catheter, however there was no urine in the bladder. Condom cath placed on patient to obtain urine for urinalysis. Chest x-ray is negative. Due to report of hypotension en route a right bundle branch block seen on EKG, and bilateral leg pain, D-dimer was ordered. D-dimer found to be elevated, so venous Doppler ultrasound of the lower extremities have been ordere d, in addition to CTA chest to rule out a PE. CT abdomen pelvis also ordered due to elevated WBC count and some mild left lower quadrant abdominal tenderness on exam. CT head ordered for complaint of dizziness. Ultrasound, UA, and CTs are still pending. Patient did have an episode of diarrhea here in the ED, so viral illness could be the cause of patient's findings, including COVID-19 as patient is unvaccinated. Patient has been signed out to Dr. James to follow- up results and dispo. - Differential Diagnosis DVT, PE, UTI, COVID-19, diverticulitis Critical care attestation.: If time is entered above; I have spent that time in minutes in the direct care of this critically ill patient, excluding procedure time.
[2021-06-06 14:37] LABS: Bilirubin,Direct < 0.2 mg/dL (0-0.2)
[2021-06-06] MEDS ORDERED: traMADol 50 MG TAB PO ONE (15:53)
[2021-06-06] MEDS ORDERED: DEXTROSE 50% IN WATER (25GM) 50 ML SYRINGE IV PRN ×2 (16:39→22:30)
[2021-06-06] MEDS ORDERED: DEXTROSE 50% IN WATER (25GM) 50 ML SYRINGE IV ONE (16:39)
--- NOTE | 2021-06-06 17:06 | Vascular Lab Report ---
DUPLEX DOPPLER LOWER EXTREMITY VEINS, BILATERAL INDICATION: pain. TECHNIQUE: Duplex doppler imaging was performed through the veins of both lower extremities using venous thom jasmina and other maneuvers. COMPARISON: None available. FINDINGS: Right Common Femoral vein: Negative. Right Superficial Femoral vein: Negative. Right Popliteal vein: Negative. Right Calf veins: Negative. Left Common Femoral vein: Negative. Left Superficial Femoral vein: Negative. Left Popliteal vein: Negative. Left Calf veins: Negative. Additional findings: None. IMPRESSION: 1. No sonographic evidence for DVT in either lower extremity. Signer Name: Kenyatta Blunt MD Signed: 06/06/2021 5:02 PM Workstation Name: [id number]
--- NOTE | 2021-06-06 17:37 | Cat Scan Report ---
CT head/brain wo con INDICATION / CLINICAL INFORMATION: 61 years Male; Weakness, dizziness and lightheadedness x 5 days. TECHNIQUE: Routine CT head without contrast. All CT scans at this location are performed using CT dos e reduction for ALARA by means of automated exposure control. COMPARISON: None. FINDINGS: BRAIN / INTRACRANIAL CONTENTS: There is left frontal craniotomy with underlying encephalomalacia invo lving left frontal lobe. There is also notable encephalomalacia involving posterior left cerebrum com patible with old left IRB COMPLIANCE COORDINATOR infarct. There is associated ex vacuo dilatation of the left lateral ventri cuauhtemoc. Additional small lacunar infarct within the right thalamus. There is no clear CT evidence of acute in tracranial hemorrhage or significant mass effect. ORBITS: No significant abnormality of visualized orbits. SINUSES / MASTOIDS: No significant abnormality in the visualized paranasal sinuses or mastoid air isabel ls. CRANIOCERVICAL JUNCTION: No significant abnormality. ADDITIONAL FINDINGS: None. IMPRESSION: 1. There is left frontal craniotomy with underlying encephalomalacia involving left frontal lobe. 2. There is a left IRB COMPLIANCE COORDINATOR infarct also with encephalomalacia. 3 at. There is no clear CT evidence of acute intracranial hemorrhage. Signer Name: Delmar Valadez MD Signed: 06/06/2021 5:33 PM Workstation Name: [id number]
--- NOTE | 2021-06-06 17:49 | Cat Scan Report ---
CTA CHEST WITH IV CONTRAST INDICATION / CLINICAL INFORMATION: Weakness, dizziness x 5 days, elevated D-dimer. TECHNIQUE: Axial CT images were obtained through the chest after injection of 100 cc IV contrast. 3 plane MIP an d/or 3D reconstructions were produced. All CT scans at this location are performed using CT dose redu ction for [facility] by means of automated exposure control. COMPARISON: 06/06/2021 chest radiograph FINDINGS: PULMONARY ARTERIES: No pulmonary emboli. THORACIC AORTA: No significant abnormality. HEART: No significant abnormality. CORONARY ARTERIES: No significant calcification. PLEURA: No pleural effusion. No pneumothorax. LYMPH NODES: No significant adenopathy. LUNGS: No acute air space or interstitial disease. ADDITIONAL FINDINGS: There is florid bilateral gynecomastia. UPPER ABDOMEN: The gallbladder is abnormal. The gallbladder is distended with suggestion of gallbladd er wall thickening. Layering gallstones are seen within the gallbladder lumen. SKELETAL STRUCTURES: No significant osseous abnormality. IMPRESSION: 1. No CT evidence for pulmonary embolism. 2. No acute pulmonary or pleural disease. 3. Abnormal appearance of the gallbladder suggesting acute cholecystitis. Please correlate clinically . Signer Name: Kenyatta Blunt MD Signed: 06/06/2021 5:45 PM Workstation Name: [id number]
--- NOTE | 2021-06-06 18:00 | Cat Scan Report ---
CT abdomen pelvis w con INDICATION / CLINICAL INFORMATION: Pt also complains of abdominal pain. TECHNIQUE: Axial CT imaging of abdomen and pelvis was obtained with 100 cc IV contrast. Coronal and sagittal ref ormatted imaging obtained and reviewed. All CT scans at this location are performed using CT dose re duction for ALARA by means of automated exposure control. COMPARISON: None available. FINDINGS: CT abdomen with contrast demonstrates normal appearance of the liver, spleen, pancreas, kidneys, and adrenal glands. However, the gallbladder is abnormal. The gallbladder is distended with gallbladder w all thickening. Layering small gallstones are seen within the gallbladder lumen. There is mild intrah epatic biliary dilatation noted. The appearance is certainly very suggestive for acute cholecystitis. CT pelvis with contrast demonstrates mildly enlarged prostate gland. No pelvic mass, free fluid, or f ocal inflammatory changes noted. A normal appendix is present in the right lower quadrant. GI tract i s grossly unremarkable. Visualized lung bases are clear. No significant acute osseous abnormality noted. IMPRESSION: 1. Abnormal appearance of the gallbladder. Gallbladder is abnormally distended with gallbladder wall thickening and gallstones. The appearance is consistent with acute cholecystitis. 2. No other significant finding within the abdomen or pelvis. Signer Name: Kenyatta Blunt MD Signed: 06/06/2021 5:56 PM Workstation Name: [id number]
[2021-06-06] MEDS ORDERED: ACETAMINOPHEN 325 MG TAB PO ONE (18:17)
[2021-06-06] MEDS ORDERED: DEXTROSE 10% IN WATER 1,000 ML IV SCH (19:10)
[2021-06-06] MEDS ORDERED: methIMAzole 5 MG TAB PO STA (19:54)
[2021-06-06] MEDS ORDERED: POTASSIUM IODIDE/IODINE (LUGOLS) 5% ORAL LIQD 5 ML PO STA (19:54)
[2021-06-06] MEDS ORDERED: HYDROCORTISONE SOD SUCC 100 MG/2 ML VIAL IV ONE (19:54)
[2021-06-06] MEDS ORDERED: PROPRANOLOL 10 MG TAB PO ONE (19:54)
--- NOTE | 2021-06-06 22:08 | History and Physical Report ---
History of Present Illness Date of examination: 06/06/21 Date of admission: 06/06/21 Chief complaint: Hypoglycemia Weakness Lightheadedness History of present illness: 61-year-old male with past medical history of diabetes and hemorrhagic stroke was brought to the hospital because of weakness and lightheadedness ongoing for 5 days. He also reports pain in his bilateral lower legs for several weeks. Patient received a prescription for gabapentin on yesterday, but has not yet started the medication. Patient denies any fever or chills, vomiting or diarrhea, abdominal pain, chest pain, shortness of breath. Patient reports some headache and nasal congestion. Patient is not vaccinated against COVID-19. EMS states patient was hypotensive en route, with systolic BP in the 70s. However initial blood pressure here in the ED is 138/81. In the emergency room patient is found hypoglycemia. Patient blood glucose was initially 71 the next 1 is 53. Patient also has TSH of 0.122 and free T4 1.58, patient WBC 16.8. CT scan of the abdomen and pelvis showed abnormal appearance of the gallbladder. Gallbladder is abnormally distended with gallbladder wall thickening and gallstone. The appearance is consistent with acute cholecystitis. No other significant finding within the abdomen or pelvis Past History Past Medical History: diabetes, stroke, other (Hemorrhagic CVA) Medications and Allergies Allergies Allergy/AdvReac Type Severity Reaction Status Date / Time No Known Allergies Allergy Verified 11/26/18 01:03 Home Medications Medication Instructions Recorded Confirmed Last Taken Type Gabapentin [Neurontin] 600 mg PO Q8H 06/06/21 06/06/21 Unknown History Active Meds: Active Medications Acetaminophen (Acetaminophen 325 Mg Tab) 650 mg PO Q4H PRN PRN Reason: Pain MILD(1-3)/Fever >100.5/HARO Albuterol (Albuterol 2.5 Mg/3 Ml Nebu) 2.5 mg IH Q4HRT PRN PRN Reason: Shortness Of Breath Dextrose (Dextrose 50% In Water (25gm) 50 Ml Syringe) 50 ml IV Q30MIN PRN; Protocol PRN Reason: Hypoglycemia Last Admin: 06/06/21 18:59 Dose: 50 ml Documented by: Dextrose (Dextrose 50% In Water (25gm) 50 Ml Syringe) 50 ml IV Q30MIN PRN; Protocol PRN Reason: Hypoglycemia Famotidine (Famotidine 20 Mg/2 Ml Inj) 20 mg IV BID ROYER Hydromorphone HCl (Hydromorphone 1 Mg/1 Ml Inj) 0.5 mg IV Q3H PRN PRN Reason: Pain , Severe (7-10) Dextrose (D10w) 1,000 mls @ 100 mls/hr IV DIRECT ROYER Dextrose/Sodium Chloride (D5/0.45ns) 1,000 mls @ 100 mls/hr IV DIRECT ROYER Piperacillin Sod/Tazobactam Sod (Zosyn/Ns 4.5gm/100ml) 4.5 gm in 100 mls @ 200 mls/hr IV Q8H ROYER; Protocol Insulin Human Lispro (Insulin Lispro 100 Unit/Ml) 0 unit SUB-Q ACHS ROYER; Protocol Miscellaneous Medication (Gabapentin [Neurontin]) 600 mg PO Q8H ROYER Ondansetron HCl (Ondansetron 4 Mg/2 Ml Inj) 4 mg IV Q8H PRN PRN Reason: Nausea And Vomiting Oxycodone/Acetaminophen (Oxycodone /Acetaminophen 5-325mg Tab) 1 tab PO Q6H PRN PRN Reason: Pain, Moderate (4-6) Sodium Chloride (Sodium Chloride 0.9% 10 Ml Flush Syringe) 10 ml IV BID ROYER Sodium Chloride (Sodium Chloride 0.9% 10 Ml Flush Syringe) 10 ml IV PRN PRN PRN Reason: LINE FLUSH Review of Systems Constitutional: weakness Cardiovascular: lightheadedness Exam - Constitutional Vitals: Temp Pulse Resp BP Pulse Ox 98.6 F 85 16 127/83 100 06/06/21 13:08 06/06/21 20:18 06/06/21 20:15 06/06/21 20:18 06/06/21 20:15 General appearance: Present: no acute distress, well-nourished - EENT Eyes: Present: PERRL ENT: hearing intact, clear oral mucosa - Neck Neck: Present: supple, normal ROM - Respiratory Respiratory effort: normal Respiratory: bilateral: CTA - Cardiovascular Heart Sounds: Present: S1 & S2. Absent: rub, click - Extremities Extremities: pulses symmetrical, No edema Peripheral Pulses: within normal limits - Abdominal General gastrointestinal: Present: soft, non-tender, non-distended, normal bowel sounds Male genitourinary: Present: normal - Integumentary Integumentary: Present: clear, warm, dry - Musculoskeletal Musculoskeletal: gait normal, strength equal bilaterally - Psychiatric Psychiatric: appropriate mood/affect, intact judgment & insight - Neurologic Neurologic: CNII-XII intact, moves all extremities HEART Score - HEART Score Troponin: Troponin T 0.013 ng/mL (0.00-0.029) 06/06/21 13:45 Results - Labs CBC & Chem 7: 06/06/21 13:45 06/06/21 13:45 Labs: Laboratory Last Values WBC 16.8 K/mm3 (4.5-11.0) H 06/06/21 13:45 RBC 3.65 M/mm3 (3.65-5.03) 06/06/21 13:45 Hgb 11.4 gm/dl (11.8-15.2) L 06/06/21 13:45 Hct 33.4 % (35.5-45.6) L 06/06/21 13:45 MCV 92 fl (84-94) 06/06/21 13:45 MCH 31 pg (28-32) 06/06/21 13:45 MCHC 34 % (32-34) 06/06/21 13:45 RDW 13.9 % (13.2-15.2) 06/06/21 13:45 Plt Count 344 K/mm3 (140-440) 06/06/21 13:45 Lymph % (Auto) 6.1 % (13.4-35.0) L 06/06/21 13:45 [place] % (Auto) 6.6 % (0.0-7.3) 06/06/21 13:45 Eos % (Auto) 1.0 % (0.0-4.3) 06/06/21 13:45 Baso % (Auto) 0.2 % (0.0-1.8) 06/06/21 13:45 Lymph # (Auto) 1.0 K/mm3 (1.2-5.4) L 06/06/21 13:45 [place] # (Auto) 1.1 K/mm3 (0.0-0.8) H 06/06/21 13:45 Eos # (Auto) 0.2 K/mm3 (0.0-0.4) 06/06/21 13:45 Baso # (Auto) 0.0 K/mm3 (0.0-0.1) 06/06/21 13:45 Seg Neutrophils % 86.1 % (40.0-70.0) H 06/06/21 13:45 Seg Neutrophils # 14.4 K/mm3 (1.8-7.7) H 06/06/21 13:45 PT 13.4 Sec. (12.2-14.9) 06/06/21 13:45 INR 0.96 (0.87-1.13) 06/06/21 13:45 APTT 37.1 Sec. (24.2-36.6) H 06/06/21 13:45 D-Dimer 396.80 ng/mlDDU (0-234) H 06/06/21 13:45 Sodium 139 mmol/L (137-145) 06/06/21 13:45 Potassium 4.2 mmol/L (3.6-5.0) 06/06/21 13:45 Chloride 103.0 mmol/L (98-107) 06/06/21 13:45 Carbon Dioxide 27 mmol/L (22-30) 06/06/21 13:45 Anion Gap 13 mmol/L 06/06/21 13:45 BUN 27 mg/dL (9-20) H 06/06/21 13:45 Creatinine 1.0 mg/dL (0.8-1.3) 06/06/21 13:45 Estimated GFR > 60 ml/min 06/06/21 13:45 BUN/Creatinine Ratio 27 % 06/06/21 13:45 Glucose 71 mg/dL (75-100) L 06/06/21 13:45 POC Glucose 53 mg/dL (70-105) L 06/06/21 18:47 Calcium 9.3 mg/dL (8.4-10.2) 06/06/21 13:45 Total Bilirubin 0.20 mg/dL (0.1-1.2) 06/06/21 13:45 Direct Bilirubin < 0.2 mg/dL (0-0.2) 06/06/21 13:45 Indirect Bilirubin 0.0 mg/dL 06/06/21 13:45 AST 44 units/L (5-40) H 06/06/21 13:45 ALT 54 units/L (7-56) 06/06/21 13:45 Alkaline Phosphatase 437 units/L (35-129) H 06/06/21 13:45 Troponin T 0.013 ng/mL (0.00-0.029) 06/06/21 13:45 Total Protein 6.6 g/dL (6.3-8.2) 06/06/21 13:45 Albumin 3.0 g/dL (3.9-5) L 06/06/21 13:45 Albumin/Globulin Ratio 0.8 % 06/06/21 13:45 TSH 0.122 mlU/mL (0.270-4.200) L 06/06/21 16:54 Free T4 1.58 ng/dL (0.76-1.46) H 06/06/21 Unknown - Imaging and Cardiology CT scan - abdomen: report reviewed Assessment and Plan VTE prophylaxis?: Mechanical Plan of care discussed with patient/family: Yes - Patient Problems (1) Hypoglycemia Current Visit: Yes Status: Acute Plan to address problem: Admit the patient to the medical telemetry. Put the patient on 1800 kcal ADA diet. D5 half-normal saline at the rate of 100 cc/h. We discontinue the home insulin. We will monitor the blood glucose closely. Diabetic education. recheck CBC BMP in the morning (2) Lightheadedness Current Visit: Yes Status: Acute Plan to address problem: D5 half-normal saline at the rate of 100 cc/h. We will monitor the blood pressure closely. (3) Cholecystitis Current Visit: Yes Status: Acute Plan to address problem: Zosyn 4.5 g IV every 8 hours. Ultrasound of the right upper quadrant rule out cholecystitis. Will consult surgery for evaluation and treatment. Recheck CBC BMP in the morning (4) History of stroke Current Visit: Yes Status: Acute Plan to address problem: Stable we will continue the home medication. Outpatient follow-up with neurology (5) Hyperthyroidism Current Visit: Yes Status: Acute Plan to address problem: Hydrocortisone 100 mg IV x1 dose methimazole 40 mg p.o. x1 by the ER physician. We also put the patient on propanolol. Outpatient follow-up with endocrinology (6) Diabetes Current Visit: Yes Status: Acute Plan to address problem: 1800 kcal ADA diet. Low-dose Humalog sliding scale. Diabetic education recheck CBC BMP in the morning (7) DVT prophylaxis Current Visit: Yes Status: Acute Plan to address problem: SCD for DVT prophylaxis. Pepcid 20 mg p.o. twice daily for GI prophylaxis. Patient is a full code
[2021-06-06] MEDS ORDERED: NON-FORMULARY EACH (Gabapentin [Neurontin] 600 MG Tablet) PO SCH (22:15)
[2021-06-06] MEDS ORDERED: ONDANSETRON 4 MG/2 ML INJ IV PRN (22:30)
[2021-06-06] MEDS ORDERED: ACETAMINOPHEN 325 MG TAB PO PRN (22:30)
[2021-06-06] MEDS ORDERED: ALBUTEROL 2.5 MG/3 ML NEBU IH PRN (22:30)
[2021-06-06] MEDS: FAMOTIDINE 20 MG/2 ML INJ IV SCH (22:34)
--- NOTE | 2021-06-06 22:34 | Ultrasound Report ---
ULTRASOUND ABDOMEN, LIMITED INDICATION / CLINICAL INFORMATION: Abnormal CT scan, evaluate for cholecystitis. COMPARISON: None available. FINDINGS: The gallbladder is markedly distended measuring 14 cm. There is some trace pericholecystic fluid sugg ested. Multiple gallstones are identified. The liver is enlarged measuring 17.5 cm. Common bile measu res 7 mm. Aorta appears normal. IMPRESSION: 1. Marked distention of the gallbladder with multiple gallstones. There is trace pericholecystic flui d suggested. Findings suggest acute cholecystitis. 2. Hepatomegaly Signer Name: Vivek Lawler MD Signed: 06/06/2021 10:30 PM Workstation Name: [id number]
[2021-06-06] MEDS: GABAPENTIN 300 MG CAP PO SCH (22:35)
[2021-06-06] MEDS: PIPERACIL/TAZOBACTA 4.5/NS 100 4.5 GM/100 ML VIAL IV SCH (22:35)
[2021-06-06] MEDS: D5W/0.45% NACL 1,000 ML IV SCH (22:35)
[2021-06-06] MEDS: INSULIN LISPRO 100 UNIT/ML SUB-Q SCH (23:14)
[2021-06-07 05:43] LABS: Basophils % (Auto) 0.2 % (0.0-1.8); Eosinophils % (Auto) 0.3 % (0.0-4.3); Hematocrit 31.9 % (35.5-45.6); Hemoglobin 10.8 gm/dl (11.8-15.2); Lymphocytes # (Auto) 0.7 K/mm3 (1.2-5.4); Lymphocytes % (Auto) 6.5 % (13.4-35.0); Mean Corpuscular HGB Conc 34 % (32-34); Mean Corpuscular Volume 92 fl (84-94); Monocytes # (Auto) 0.4 K/mm3 (0.0-0.8); Monocytes % (Auto) 3.8 % (0.0-7.3); Platelet Count 329 K/mm3 (140-440); Red Blood Count 3.49 M/mm3 (3.65-5.03); Red Cell Distribution Width 13.8 % (13.2-15.2)
[2021-06-07 06:09] LABS: BUN/Creatinine Ratio 25; Blood Urea Nitrogen 27 mg/dL (9-20); Calcium 8.8 mg/dL (8.4-10.2); Hemolysis Index 1
[2021-06-07] MEDS: GABAPENTIN 300 MG CAP PO SCH ×3 (06:45→23:08)
[2021-06-07] MEDS: PIPERACIL/TAZOBACTA 4.5/NS 100 4.5 GM/100 ML VIAL IV SCH ×3 (06:49→23:53)
--- NOTE | 2021-06-07 07:29 | Progress Note ---
Assessment and Plan Assessment and plan: 61-year-old male with past medical history of diabetes and hemorrhagic stroke was brought to the hospital because of weakness and lightheadedness ongoing for 5 days. He also reports pain in his bilateral lower legs for several weeks. Patient received a prescription for gabapentin on yesterday, but has not yet started the medication. Patient denies any fever or chills, vomiting or diarrhea, abdominal pain, chest pain, shortness of breath. Patient reports some headache and nasal congestion. Patient is not vaccinated against COVID-19. EMS states patient was hypotensive en route, with systolic BP in the 70s. However initial blood pressure here in the ED is 138/81. In the emergency room patient is found hypoglycemia. Patient blood glucose was initially 71 the next 1 is 53. Patient also has TSH of 0.122 and free T4 1.58, patient WBC 16.8. CT scan of the abdomen and pelvis showed abnormal appearance of the gallbladder. Gallbladder is abnormally distended with gallbladder wall thickening and gallstone. The appearance is consistent with acute cholecystitis. No other significant finding within the abdomen or pelvis (1) Acute Cholecystitis Current Visit: Yes Status: Acute Plan to address problem: Zosyn 4.5 g IV every 8 hours. Ultrasound of the right upper quadrant rule out cholecystitis. Will consult surgery for evaluation and treatment. Recheck CBC BMP in the morning (2) Lightheadedness Current Visit: Yes Status: Acute Plan to address problem: D5 half-normal saline at the rate of 100 cc/h. We will monitor the blood pressure closely. (3)Hypoglycemia Current Visit: Yes Status: Acute Plan to address problem: Admit the patient to the medical telemetry. Put the patient on 1800 kcal ADA diet. D5 half-normal saline at the rate of 100 cc/h. We discontinue the home insulin. We will monitor the blood glucose closely. Diabetic education. recheck CBC BMP in the morning (4) History of stroke Current Visit: Yes Status: Acute Plan to address problem: Stable we will continue the home medication. Outpatient follow-up with neurology (5) Hyperthyroidism Current Visit: Yes Status: Acute Plan to address problem: Hydrocortisone 100 mg IV x1 dose methimazole 40 mg p.o. x1 by the ER physician. We also put the patient on propanolol. Outpatient follow-up with endocrinology re (6) Diabetes Current Visit: Yes Status: Acute Plan to address problem: 1800 kcal ADA diet. Low-dose Humalog sliding scale. Diabetic education recheck CBC BMP in the morning (7) DVT prophylaxis Current Visit: Yes Status: Acute Plan to address problem: SCD for DVT prophylaxis. Pepcid 20 mg p.o. twice daily for GI prophylaxis. Patient is a full code 06/07: Awaiting surgical eval, will recommend repeat TSH AND FREE T4 outpatient, Monitor K LEVEL will give Kayexalate, patient has been started on the gabapentin that was prescribed for him yesterday. Will check Covid vaccine testing considering possible surgical procedure. Continue D5 on hold his diabetic medication he appears to have significant insulin dosages at home. Will readjust if blood sugar continues to stay up. We will also obtain PT OT evaluation History Interval history: Patient seen and examined, sitting up in no acute distress. Hospitalist Physical - Physical exam Narrative exam: General appearance: Present: no acute distress, well-nourished - EENT Eyes: Present: PERRL ENT: hearing intact, clear oral mucosa - Neck Neck: Present: supple, normal ROM - Respiratory Respiratory effort: normal Respiratory: bilateral: CTA - Cardiovascular Heart Sounds: Present: S1 & S2. Absent: rub, click - Extremities Extremities: pulses symmetrical, No edema Peripheral Pulses: within normal limits - Abdominal General gastrointestinal: Present: soft, non-tender, non-distended, normal bowel sounds Male genitourinary: Present: normal - Integumentary Integumentary: Present: clear, warm, dry - Musculoskeletal Musculoskeletal: gait normal, strength equal bilaterally - Psychiatric Psychiatric: appropriate mood/affect, intact judgment & insight - Neurologic Neurologic: CNII-XII intact, moves all extremities - Constitutional Vitals: Temp Pulse Resp BP Pulse Ox 98.6 F 77 13 122/71 98 06/06/21 13:08 06/07/21 06:15 06/07/21 06:15 06/07/21 06:15 06/07/21 06:15 General appearance: Present: no acute distress, well-nourished HEART Score - HEART Score Troponin: Troponin T 0.013 ng/mL (0.00-0.029) 06/06/21 13:45 Results - Labs CBC & Chem 7: 06/07/21 05:10 06/07/21 05:10 Labs: Laboratory Last Values WBC 11.1 K/mm3 (4.5-11.0) H 06/07/21 05:10 RBC 3.49 M/mm3 (3.65-5.03) L 06/07/21 05:10 Hgb 10.8 gm/dl (11.8-15.2) L 06/07/21 05:10 Hct 31.9 % (35.5-45.6) L 06/07/21 05:10 MCV 92 fl (84-94) 06/07/21 05:10 MCH 31 pg (28-32) 06/07/21 05:10 MCHC 34 % (32-34) 06/07/21 05:10 RDW 13.8 % (13.2-15.2) 06/07/21 05:10 Plt Count 329 K/mm3 (140-440) 06/07/21 05:10 Lymph % (Auto) 6.5 % (13.4-35.0) L 06/07/21 05:10 [place] % (Auto) 3.8 % (0.0-7.3) 06/07/21 05:10 Eos % (Auto) 0.3 % (0.0-4.3) 06/07/21 05:10 Baso % (Auto) 0.2 % (0.0-1.8) 06/07/21 05:10 Lymph # (Auto) 0.7 K/mm3 (1.2-5.4) L 06/07/21 05:10 [place] # (Auto) 0.4 K/mm3 (0.0-0.8) 06/07/21 05:10 Eos # (Auto) 0.0 K/mm3 (0.0-0.4) 06/07/21 05:10 Baso # (Auto) 0.0 K/mm3 (0.0-0.1) 06/07/21 05:10 Seg Neutrophils % 89.2 % (40.0-70.0) H 06/07/21 05:10 Seg Neutrophils # 9.9 K/mm3 (1.8-7.7) H 06/07/21 05:10 PT 13.4 Sec. (12.2-14.9) 06/06/21 13:45 INR 0.96 (0.87-1.13) 06/06/21 13:45 APTT 37.1 Sec. (24.2-36.6) H 06/06/21 13:45 D-Dimer 396.80 ng/mlDDU (0-234) H 06/06/21 13:45 Sodium 137 mmol/L (137-145) 06/07/21 05:10 Potassium 5.1 mmol/L (3.6-5.0) H D 06/07/21 05:10 Chloride 102.6 mmol/L (98-107) 06/07/21 05:10 Carbon Dioxide 28 mmol/L (22-30) 06/07/21 05:10 Anion Gap 12 mmol/L 06/07/21 05:10 BUN 27 mg/dL (9-20) H 06/07/21 05:10 Creatinine 1.1 mg/dL (0.8-1.3) 06/07/21 05:10 Estimated GFR > 60 ml/min 06/07/21 05:10 BUN/Creatinine Ratio 25 % 06/07/21 05:10 Glucose 224 mg/dL (75-100) H 06/07/21 05:10 POC Glucose 154 mg/dL (70-105) H 06/06/21 22:30 Calcium 8.8 mg/dL (8.4-10.2) 06/07/21 05:10 Total Bilirubin 0.20 mg/dL (0.1-1.2) 06/06/21 13:45 Direct Bilirubin < 0.2 mg/dL (0-0.2) 06/06/21 13:45 Indirect Bilirubin 0.0 mg/dL 06/06/21 13:45 AST 44 units/L (5-40) H 06/06/21 13:45 ALT 54 units/L (7-56) 06/06/21 13:45 Alkaline Phosphatase 437 units/L (35-129) H 06/06/21 13:45 Troponin T 0.013 ng/mL (0.00-0.029) 06/06/21 13:45 Total Protein 6.6 g/dL (6.3-8.2) 06/06/21 13:45 Albumin 3.0 g/dL (3.9-5) L 06/06/21 13:45 Albumin/Globulin Ratio 0.8 % 06/06/21 13:45 TSH 0.122 mlU/mL (0.270-4.200) L 06/06/21 16:54 Free T4 1.58 ng/dL (0.76-1.46) H 06/06/21 Unknown Active Medications - Current Medications Current Medications: Generic Name Dose Route Start Last Admin Trade Name Freq PRN Reason Stop Dose Admin Acetaminophen 650 mg 06/06/21 22:30 Acetaminophen 325 Mg Tab PO Q4H PRN Pain MILD(1-3)/Fever >100.5/HARO Albuterol 2.5 mg 06/06/21 22:30 Albuterol 2.5 Mg/3 Ml Nebu IH Q4HRT PRN Shortness Of Breath Dextrose 50 ml 06/06/21 22:30 Dextrose 50% In Water (25gm) 50 Ml Syringe IV Q30MIN PRN Hypoglycemia Protocol Famotidine 20 mg 06/06/21 22:30 06/06/21 22:34 Famotidine 20 Mg/2 Ml Inj IV 20 mg BID ROYER Administration Gabapentin 600 mg 06/06/21 22:30 06/07/21 06:45 Gabapentin 300 Mg Cap PO 600 mg Q8H ROYER Administration Hydromorphone HCl 0.5 mg 06/06/21 22:30 Hydromorphone 1 Mg/1 Ml Inj IV Q3H PRN Pain , Severe (7-10) Dextrose 1,000 mls @ 100 mls/hr 06/06/21 19:10 D10w IV DIRECT ROYER Dextrose/Sodium Chloride 1,000 mls @ 100 mls/hr 06/06/21 22:30 06/06/21 22:35 D5/0.45ns IV 100 mls/hr DIRECT ROYER Administration Piperacillin Sod/Tazobactam Sod 4.5 gm in 100 mls @ 200 mls/hr 06/06/21 23:00 06/07/21 06:49 Zosyn/Ns 4.5gm/100ml IV 200 mls/hr Q8H ROYER Administration Protocol Insulin Human Lispro 0 unit 06/06/21 22:30 06/06/21 23:14 Insulin Lispro 100 Unit/Ml SUB-Q 1 unit ACHS ROYER Administration Protocol Ondansetron HCl 4 mg 06/06/21 22:30 Ondansetron 4 Mg/2 Ml Inj IV Q8H PRN Nausea And Vomiting Oxycodone/Acetaminophen 1 tab 06/06/21 22:30 Oxycodone /Acetaminophen 5-325mg Tab PO Q6H PRN Pain, Moderate (4-6) Sodium Chloride 10 ml 06/06/21 22:30 06/06/21 22:54 Sodium Chloride 0.9% 10 Ml Flush Syringe IV 10 ml BID ROYER Administration Sodium Chloride 10 ml 06/06/21 22:30 Sodium Chloride 0.9% 10 Ml Flush Syringe IV PRN PRN LINE FLUSH
[2021-06-07] MEDS ORDERED: SODIUM POLYSTYRENE 15 GM/60 ML ORAL LIQD PO SCH (08:00)
[2021-06-07] MEDS: INSULIN LISPRO 100 UNIT/ML SUB-Q SCH ×4 (08:06→23:00)
[2021-06-07 08:28] LABS: Bilirubin,Urine NEG (Negative); Blood,Urine NEG (Negative); Color,Urine Yellow (Yellow); Urobilinogen,Urine < 2.0 mg/dL (<2.0)
[2021-06-07] MEDS: FAMOTIDINE 20 MG/2 ML INJ IV SCH ×2 (10:38→23:08)
[2021-06-07] MEDS: methIMAzole 5 MG TAB PO SCH (10:38)
--- NOTE | 2021-06-07 14:31 | Consultation ---
History of Present Illness Consult date: 06/07/21 Reason for consult: gallstones Chief complaint: gallstones - History of present illness History of present illness: 61 yo M with hx of hemorrhagic stroke, left hemiparesis, DM who presents to ER with c/o swelling in b/l LE and weakness for the last 1 week. He was found to by hypoglycemic with AMS in the ER. W/U in ER included CT A/p with revealed abnormal gallbladder. Patient denies abdominal pain, n/v, diarrhea. He has been tolerating a diet here and at home without difficulty. No f/c. Past History Past Medical History: diabetes, stroke, other (Hemorrhagic CVA) Past Surgical History: Other (unknown) Social history: no significant social history Family history: no significant family history Medications and Allergies Allergies Allergy/AdvReac Type Severity Reaction Status Date / Time No Known Allergies Allergy Verified 11/26/18 01:03 Home Medications Medication Instructions Recorded Confirmed Last Taken Type Gabapentin [Neurontin] 600 mg PO Q8H 06/06/21 06/06/21 Unknown History Active Meds: Active Medications Acetaminophen (Acetaminophen 325 Mg Tab) 650 mg PO Q4H PRN PRN Reason: Pain MILD(1-3)/Fever >100.5/HARO Albuterol (Albuterol 2.5 Mg/3 Ml Nebu) 2.5 mg IH Q4HRT PRN PRN Reason: Shortness Of Breath Dextrose (Dextrose 50% In Water (25gm) 50 Ml Syringe) 50 ml IV Q30MIN PRN; Protocol PRN Reason: Hypoglycemia Famotidine (Famotidine 20 Mg/2 Ml Inj) 20 mg IV BID ROYER Last Admin: 06/07/21 10:38 Dose: 20 mg Documented by: Gabapentin (Gabapentin 300 Mg Cap) 600 mg PO Q8H ROYER Last Admin: 06/07/21 06:45 Dose: 600 mg Documented by: Hydromorphone HCl (Hydromorphone 1 Mg/1 Ml Inj) 0.5 mg IV Q3H PRN PRN Reason: Pain , Severe (7-10) Dextrose (D10w) 1,000 mls @ 100 mls/hr IV DIRECT ROYER Dextrose/Sodium Chloride (D5/0.45ns) 1,000 mls @ 100 mls/hr IV DIRECT ROYER Last Admin: 06/06/21 22:35 Dose: 100 mls/hr Documented by: Piperacillin Sod/Tazobactam Sod (Zosyn/Ns 4.5gm/100ml) 4.5 gm in 100 mls @ 200 mls/hr IV Q8H ROYER; Protocol Last Admin: 06/07/21 06:49 Dose: 200 mls/hr Documented by: Insulin Human Lispro (Insulin Lispro 100 Unit/Ml) 0 unit SUB-Q ACHS ROYER; Protocol Last Admin: 06/07/21 11:21 Dose: 2 unit Documented by: Methimazole (Methimazole 5 Mg Tab) 10 mg PO Q24HR ROYER Last Admin: 06/07/21 10:38 Dose: 10 mg Documented by: Ondansetron HCl (Ondansetron 4 Mg/2 Ml Inj) 4 mg IV Q8H PRN PRN Reason: Nausea And Vomiting Oxycodone/Acetaminophen (Oxycodone /Acetaminophen 5-325mg Tab) 1 tab PO Q6H PRN PRN Reason: Pain, Moderate (4-6) Sodium Chloride (Sodium Chloride 0.9% 10 Ml Flush Syringe) 10 ml IV BID [facility] Last Admin: 06/07/21 10:38 Dose: 10 ml Documented by: Sodium Chloride (Sodium Chloride 0.9% 10 Ml Flush Syringe) 10 ml IV PRN PRN PRN Reason: LINE FLUSH Review of Systems All systems: negative (10 point ROS performed and negative except for that listed in HPI) Exam Vital Signs Pulse Resp Pulse Ox 83 10 L 99 06/06/21 13:06 06/06/21 13:06 06/06/21 13:06 Narrative exam: Gen.: Awake, alert, oriented x3. No apparent distress ENT: Trachea midline. No lymphadenopathy. No scleral icterus or conjunctival pallor CV: S1, S2 present Respiratory: No audible wheezes Abdomen: Soft, nondistended, nontender. No rebound, rigidity, guarding Extremities: L hemiparesis Results - Labs 06/07/21 05:10 06/07/21 05:10 Abnormal lab results 06/06/21 06/06/21 06/06/21 Range/Units 13:45 13:45 16:54 WBC (4.5-11.0) K/mm3 RBC (3.65-5.03) M/mm3 Hgb (11.8-15.2) gm/dl Hct (35.5-45.6) % Lymph % (Auto) (13.4-35.0) % Lymph # (Auto) (1.2-5.4) K/mm3 Seg Neutrophils % (40.0-70.0) % Seg Neutrophils # (1.8-7.7) K/mm3 APTT 37.1 H (24.2-36.6) Sec. D-Dimer 396.80 H (0-234) ng/mlDDU Potassium (3.6-5.0) mmol/L BUN 27 H (9-20) mg/dL Glucose 71 L (75-100) mg/dL POC Glucose (70-105) mg/dL AST 44 H (5-40) units/L Alkaline Phosphatase 437 H (35-129) units/L Albumin 3.0 L (3.9-5) g/dL TSH 0.122 L (0.270-4.200) mlU/mL Free T4 (0.76-1.46) ng/dL 06/06/21 06/06/21 06/06/21 Range/Units 18:47 22:30 Unknown WBC (4.5-11.0) K/mm3 RBC (3.65-5.03) M/mm3 Hgb (11.8-15.2) gm/dl Hct (35.5-45.6) % Lymph % (Auto) (13.4-35.0) % Lymph # (Auto) (1.2-5.4) K/mm3 Seg Neutrophils % (40.0-70.0) % Seg Neutrophils # (1.8-7.7) K/mm3 APTT (24.2-36.6) Sec. D-Dimer (0-234) ng/mlDDU Potassium (3.6-5.0) mmol/L BUN (9-20) mg/dL Glucose (75-100) mg/dL POC Glucose 53 L 154 H (70-105) mg/dL AST (5-40) units/L Alkaline Phosphatase (35-129) units/L Albumin (3.9-5) g/dL TSH (0.270-4.200) mlU/mL Free T4 1.58 H (0.76-1.46) ng/dL 0906/07/21 06/07/21 Range/Units 05:10 05:10 08:02 WBC 11.1 H (4.5-11.0) K/mm3 RBC 3.49 L (3.65-5.03) M/mm3 Hgb 10.8 L (11.8-15.2) gm/dl Hct 31.9 L (35.5-45.6) % Lymph % (Auto) 6.5 L (13.4-35.0) % Lymph # (Auto) 0.7 L (1.2-5.4) K/mm3 Seg Neutrophils % 89.2 H (40.0-70.0) % Seg Neutrophils # 9.9 H (1.8-7.7) K/mm3 APTT (24.2-36.6) Sec. D-Dimer (0-234) ng/mlDDU Potassium 5.1 H D (3.6-5.0) mmol/L BUN 27 H (9-20) mg/dL Glucose 224 H (75-100) mg/dL POC Glucose 278 H (70-105) mg/dL AST (5-40) units/L Alkaline Phosphatase (35-129) units/L Albumin (3.9-5) g/dL TSH (0.270-4.200) mlU/mL Free T4 (0.76-1.46) ng/dL 06/07/21 Range/Units 11:14 WBC (4.5-11.0) K/mm3 RBC (3.65-5.03) M/mm3 Hgb (11.8-15.2) gm/dl Hct (35.5-45.6) % Lymph % (Auto) (13.4-35.0) % Lymph # (Auto) (1.2-5.4) K/mm3 Seg Neutrophils % (40.0-70.0) % Seg Neutrophils # (1.8-7.7) K/mm3 APTT (24.2-36.6) Sec. D-Dimer (0-234) ng/mlDDU Potassium (3.6-5.0) mmol/L BUN (9-20) mg/dL Glucose (75-100) mg/dL POC Glucose 235 H (70-105) mg/dL AST (5-40) units/L Alkaline Phosphatase (35-129) units/L Albumin (3.9-5) g/dL TSH (0.270-4.200) mlU/mL Free T4 (0.76-1.46) ng/dL Diabetes panel 06/06/21 06/07/21 Range/Units 13:45 05:10 Sodium 139 137 (137-145) mmol/L Potassium 4.2 5.1 H D (3.6-5.0) mmol/L Chloride 103.0 102.6 (98-107) mmol/L Carbon Dioxide 27 28 (22-30) mmol/L BUN 27 H 27 H (9-20) mg/dL Creatinine 1.0 1.1 (0.8-1.3) mg/dL Glucose 71 L 224 H (75-100) mg/dL Calcium 9.3 8.8 (8.4-10.2) mg/dL AST 44 H (5-40) units/L ALT 54 (7-56) units/L Alkaline Phosphatase 437 H (35-129) units/L Total Protein 6.6 (6.3-8.2) g/dL Albumin 3.0 L (3.9-5) g/dL Thyroid panel 06/06/21 Range/Units 16:54 TSH 0.122 L (0.270-4.200) mlU/mL Calcium panel 06/06/21 06/07/21 Range/Units 13:45 05:10 Calcium 9.3 8.8 (8.4-10.2) mg/dL Albumin 3.0 L (3.9-5) g/dL Pituitary panel 06/06/21 06/06/21 06/07/21 Range/Units 13:45 16:54 05:10 Sodium 139 137 (137-145) mmol/L Potassium 4.2 5.1 H D (3.6-5.0) mmol/L Chloride 103.0 102.6 (98-107) mmol/L Carbon Dioxide 27 28 (22-30) mmol/L BUN 27 H 27 H (9-20) mg/dL Creatinine 1.0 1.1 (0.8-1.3) mg/dL Glucose 71 L 224 H (75-100) mg/dL Calcium 9.3 8.8 (8.4-10.2) mg/dL TSH 0.122 L (0.270-4.200) mlU/mL Adrenal panel 06/06/21 06/07/21 Range/Units 13:45 05:10 Sodium 139 137 (137-145) mmol/L Potassium 4.2 5.1 H D (3.6-5.0) mmol/L Chloride 103.0 102.6 (98-107) mmol/L Carbon Dioxide 27 28 (22-30) mmol/L BUN 27 H 27 H (9-20) mg/dL Creatinine 1.0 1.1 (0.8-1.3) mg/dL Glucose 71 L 224 H (75-100) mg/dL Calcium 9.3 8.8 (8.4-10.2) mg/dL Total Bilirubin 0.20 (0.1-1.2) mg/dL AST 44 H (5-40) units/L ALT 54 (7-56) units/L Alkaline Phosphatase 437 H (35-129) units/L Total Protein 6.6 (6.3-8.2) g/dL Albumin 3.0 L (3.9-5) g/dL - Imaging CT scan - abdomen: report reviewed, image reviewed CT scan - pelvis: report reviewed, image reviewed US - abdomen: report reviewed, image reviewed Assessment and Plan 61 yo M with 1. cholelithiasis, possible cholecystitis Pt stable. Incidental finding of gallstones on CT and u/s. Pt asymptomatic from abdominal standpoint, barry diet, and benign abdominal exam. Low clinical suspicion for acute cholecystitis. ?chronic process. Plan: 1. on consistent carb diet 2. obtain HIDA scan to further evaluate gallbladder 3. further surgical recs pending HIDA Thank you for this consultation. Please call with any questions or concerns. Evaluation and treatment of this patient was during the time of the national and state emergency arising from COVID19 coronavirus pandemic. Treatment and procedures performed meet the current and available best practice and guidelines for patient during the COVID pandemic.
[2021-06-07] MEDS: HYDROmorphone 1 MG/1 ML INJ IV PRN (20:50)
[2021-06-07] MEDS: D5W/0.45% NACL 1,000 ML IV SCH (23:14)
[2021-06-08] MEDS: oxyCODONE /ACETAMINOPHEN 5-325MG TAB PO PRN ×2 (01:56→15:52)
[2021-06-08] MEDS: GABAPENTIN 300 MG CAP PO SCH ×3 (05:54→23:21)
[2021-06-08] MEDS: INSULIN LISPRO 100 UNIT/ML SUB-Q SCH ×4 (08:00→23:21)
--- NOTE | 2021-06-08 09:44 | Electrocardiograph Report ---
[facility] Test Date: 2021-06-06 Test Time: 13:05:18 Pat Name: MIKO PAULINO Department: Room: A451 Gender: M Car Starter: JERI BAEZAB: 1960 Requested By: RILEY BECERRIL Order Number: [id number] Reading MD: Jose Price Measurements Intervals Mclean Rate: 81 P: SC: QRS: 46 QRSD: 141 T: 32 QT: 400 QTc: 466 Interpretive Statements Accelerated junctional rhythm Right bundle branch block No previous ECG available for comparison Electronically Signed On 06-08-2021 9:44:29 EDT by Jose Price
--- NOTE | 2021-06-08 13:07 | Nuclear Medicine Report ---
NUCLEAR MEDICINE HEPATOBILIARY SCAN INDICATION / CLINICAL INFORMATION: cholelithiasis. TECHNIQUE: Radiotracer: Tc-99m mebrofenin (by IV): 5.2 mCi. Gallbladder Stimulant: Ensure (8 ounces by mouth) COMPARISON: Ultrasound 06/06/2021 of the gallbladder FINDINGS: HEPATIC ACTIVITY: Normal. BILIARY ACTIVITY: Normal. GALLBLADDER ACTIVITY: Normal SMALL BOWEL ACTIVITY: Normal GALLBLADDER EJECTION FRACTION % (if calculated): 6% at one minute. The EF at one hour was not calcula gabriella. - Normal at 30 min with Cholecystokinin: >35% - Normal at 60 min with Ensure/Glucerna: >33% PATIENT SYMPTOM REPRODUCTION: No symptoms reported.. IMPRESSION: 1. Biliary obstruction: None. Signer Name: Anthony Silva MD Signed: 06/08/2021 1:03 PM Workstation Name: [id number]
--- NOTE | 2021-06-08 14:08 | Progress Note ---
Assessment and Plan Assessment and plan: 61-year-old male with past medical history of diabetes and hemorrhagic stroke was brought to the hospital because of weakness and lightheadedness ongoing for 5 days. He also reports pain in his bilateral lower legs for several weeks. Patient received a prescription for gabapentin on yesterday, but has not yet started the medication. Patient denies any fever or chills, vomiting or diarrhea, abdominal pain, chest pain, shortness of breath. Patient reports some headache and nasal congestion. Patient is not vaccinated against COVID-19. EMS states patient was hypotensive en route, with systolic BP in the 70s. However initial blood pressure here in the ED is 138/81. In the emergency room patient is found hypoglycemia. Patient blood glucose was initially 71 the next 1 is 53. Patient also has TSH of 0.122 and free T4 1.58, patient WBC 16.8. CT scan of the abdomen and pelvis showed abnormal appearance of the gallbladder. Gallbladder is abnormally distended with gallbladder wall thickening and gallstone. The appearance is consistent with acute cholecystitis. No other significant finding within the abdomen or pelvis (1) Acute Cholecystitis Current Visit: Yes Status: Acute Plan to address problem: Zosyn 4.5 g IV every 8 hours. Ultrasound of the right upper quadrant rule out cholecystitis. Will consult surgery for evaluation and treatment. Recheck CBC BMP in the morning (2) Lightheadedness Current Visit: Yes Status: Acute Plan to address problem: D5 half-normal saline at the rate of 100 cc/h. We will monitor the blood pressure closely. (3)Hypoglycemia Current Visit: Yes Status: Acute Plan to address problem: Admit the patient to the medical telemetry. Put the patient on 1800 kcal ADA diet. D5 half-normal saline at the rate of 100 cc/h. We discontinue the home insulin. We will monitor the blood glucose closely. Diabetic education. recheck CBC BMP in the morning (4) History of stroke Current Visit: Yes Status: Acute Plan to address problem: Stable we will continue the home medication. Outpatient follow-up with neurology (5) Hyperthyroidism Current Visit: Yes Status: Acute Plan to address problem: Hydrocortisone 100 mg IV x1 dose methimazole 40 mg p.o. x1 by the ER physician. We also put the patient on propanolol. Outpatient follow-up with endocrinology re (6) Diabetes Current Visit: Yes Status: Acute Plan to address problem: 1800 kcal ADA diet. Low-dose Humalog sliding scale. Diabetic education recheck CBC BMP in the morning (7) Chronic Encephalopathy with intermittent Acute Delirium (8) DVT prophylaxis Current Visit: Yes Status: Acute Plan to address problem: SCD for DVT prophylaxis. Pepcid 20 mg p.o. twice daily for GI prophylaxis. Patient is a full code 06/07: Awaiting surgical eval, will recommend repeat TSH AND FREE T4 outpatient, Monitor K LEVEL will give Kayexalate, patient has been started on the gabapentin that was prescribed for him yesterday. Will check Covid vaccine testing considering possible surgical procedure. Continue D5 on hold his diabetic medication he appears to have significant insulin dosages at home. Will benja djust if blood sugar continues to stay up. We will also obtain PT OT evaluation 06/08: Patient with Diarrhea, unable to assist himself, this could be due to Kayaxalte given for Potassium. 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 Will monitor and await Neurology eval, will also get MRI and anticipate discharge in am FOLLOWING PT/OT eval. History Interval history: Patient seen and examined, lying down in bed has diarrhea little pale appearing but appropriate answering questions unable to assist himself. Per nursing staff this morning was distraught and pulled out his IV lines. Hospitalist Physical - Physical exam Narrative exam: General appearance: Present: no acute distress, well-nourished, a bit pale appearing - EENT Eyes: Present: PERRL ENT: hearing intact, clear oral mucosa - Neck Neck: Present: supple, normal ROM - Respiratory Respiratory effort: normal Respiratory: bilateral: CTA - Cardiovascular Heart Sounds: Present: S1 & S2. Absent: rub, click - Extremities Extremities: pulses symmetrical, No edema Peripheral Pulses: within normal limits - Abdominal General gastrointestinal: Present: soft, non-tender, non-distended, normal bowel sounds Male genitourinary: Present: normal - Integumentary Integumentary: Present: clear, warm, dry - Musculoskeletal Musculoskeletal: gait normal, strength equal bilaterally - Psychiatric Psychiatric: appropriate mood/affect, poor INSIGHT - Neurologic Neurologic: CNII-XII intact, moves all extremities - Constitutional Vitals: Temp Pulse Resp BP Pulse Ox 98.4 F 71 18 142/91 98 06/08/21 07:44 06/08/21 07:44 06/08/21 10:00 06/08/21 07:44 06/08/21 10:00 General appearance: Present: no acute distress, well-nourished HEART Score - HEART Score Troponin: Troponin T 0.013 ng/mL (0.00-0.029) 06/06/21 13:45 Results - Labs CBC & Chem 7: 06/07/21 05:10 06/07/21 05:10 Labs: Laboratory Last Values WBC 11.1 K/mm3 (4.5-11.0) H 06/07/21 05:10 RBC 3.49 M/mm3 (3.65-5.03) L 06/07/21 05:10 Hgb 10.8 gm/dl (11.8-15.2) L 06/07/21 05:10 Hct 31.9 % (35.5-45.6) L 06/07/21 05:10 MCV 92 fl (84-94) 06/07/21 05:10 MCH 31 pg (28-32) 06/07/21 05:10 MCHC 34 % (32-34) 06/07/21 05:10 RDW 13.8 % (13.2-15.2) 06/07/21 05:10 Plt Count 329 K/mm3 (140-440) 06/07/21 05:10 Lymph % (Auto) 6.5 % (13.4-35.0) L 06/07/21 05:10 [place] % (Auto) 3.8 % (0.0-7.3) 06/07/21 05:10 Eos % (Auto) 0.3 % (0.0-4.3) 06/07/21 05:10 Baso % (Auto) 0.2 % (0.0-1.8) 06/07/21 05:10 Lymph # (Auto) 0.7 K/mm3 (1.2-5.4) L 06/07/21 05:10 [place] # (Auto) 0.4 K/mm3 (0.0-0.8) 06/07/21 05:10 Eos # (Auto) 0.0 K/mm3 (0.0-0.4) 06/07/21 05:10 Baso # (Auto) 0.0 K/mm3 (0.0-0.1) 06/07/21 05:10 Seg Neutrophils % 89.2 % (40.0-70.0) H 06/07/21 05:10 Seg Neutrophils # 9.9 K/mm3 (1.8-7.7) H 06/07/21 05:10 PT 13.4 Sec. (12.2-14.9) 06/06/21 13:45 INR 0.96 (0.87-1.13) 06/06/21 13:45 APTT 37.1 Sec. (24.2-36.6) H 06/06/21 13:45 D-Dimer 396.80 ng/mlDDU (0-234) H 06/06/21 13:45 Sodium 137 mmol/L (137-145) 06/07/21 05:10 Potassium 5.1 mmol/L (3.6-5.0) H D 06/07/21 05:10 Chloride 102.6 mmol/L (98-107) 06/07/21 05:10 Carbon Dioxide 28 mmol/L (22-30) 06/07/21 05:10 Anion Gap 12 mmol/L 06/07/21 05:10 BUN 27 mg/dL (9-20) H 06/07/21 05:10 Creatinine 1.1 mg/dL (0.8-1.3) 06/07/21 05:10 Estimated GFR > 60 ml/min 06/07/21 05:10 BUN/Creatinine Ratio 25 % 06/07/21 05:10 Glucose 224 mg/dL (75-100) H 06/07/21 05:10 POC Glucose 151 mg/dL (70-105) H 06/07/21 21:59 Calcium 8.8 mg/dL (8.4-10.2) 06/07/21 05:10 Total Bilirubin 0.20 mg/dL (0.1-1.2) 06/06/21 13:45 Direct Bilirubin < 0.2 mg/dL (0-0.2) 06/06/21 13:45 Indirect Bilirubin 0.0 mg/dL 06/06/21 13:45 AST 44 units/L (5-40) H 06/06/21 13:45 ALT 54 units/L (7-56) 06/06/21 13:45 Alkaline Phosphatase 437 units/L (35-129) H 06/06/21 13:45 Troponin T 0.013 ng/mL (0.00-0.029) 06/06/21 13:45 Total Protein 6.6 g/dL (6.3-8.2) 06/06/21 13:45 Albumin 3.0 g/dL (3.9-5) L 06/06/21 13:45 Albumin/Globulin Ratio 0.8 % 06/06/21 13:45 TSH 0.122 mlU/mL (0.270-4.200) L 06/06/21 16:54 Free T4 1.58 ng/dL (0.76-1.46) H 06/06/21 Unknown Urine Color Yellow (Yellow) 06/07/21 07:21 Urine Turbidity Clear (Clear) 06/07/21 07:21 Urine pH 5.0 (5.0-7.0) 06/07/21 07:21 Ur Specific [place] 1.029 (1.003-1.030) 06/07/21 07:21 Urine Protein 100 mg/dl mg/dL (Negative) 06/07/21 07:21 Urine Glucose (UA) 150 mg/dL (Negative) 06/07/21 07:21 Urine Ketones Neg mg/dL (Negative) 06/07/21 07:21 Urine Blood Neg (Negative) 06/07/21 07:21 Urine Nitrite Neg (Negative) 06/07/21 07:21 Urine Bilirubin Neg (Negative) 06/07/21 07:21 Urine Urobilinogen < 2.0 mg/dL (<2.0) 06/07/21 07:21 Ur Leukocyte Esterase Neg (Negative) 06/07/21 07:21 Urine WBC (Auto) 2.0 /HPF (0.0-6.0) 06/07/21 07:21 Urine RBC (Auto) 1.0 /HPF (0.0-6.0) 06/07/21 07:21 Coronavirus (PCR) Negative (Negative) 09/12/21 10:00 Active Medications - Current Medications Current Medications: Generic Name Dose Route Start Last Admin Trade Name Freq PRN Reason Stop Dose Admin Acetaminophen 650 mg 06/06/21 22:30 Acetaminophen 325 Mg Tab PO Q4H PRN Pain MILD(1-3)/Fever >100.5/HARO Albuterol 2.5 mg 06/06/21 22:30 Albuterol 2.5 Mg/3 Ml Nebu IH Q4HRT PRN Shortness Of Breath Dextrose 50 ml 06/06/21 22:30 Dextrose 50% In Water (25gm) 50 Ml Syringe IV Q30MIN PRN Hypoglycemia Protocol Famotidine 20 mg 06/06/21 22:30 06/07/21 23:08 Famotidine 20 Mg/2 Ml Inj IV 20 mg BID ROYER Administration Gabapentin 600 mg 06/06/21 22:30 06/08/21 05:54 Gabapentin 300 Mg Cap PO 600 mg Q8H ROYER Administration Hydromorphone HCl 0.5 mg 06/06/21 22:30 06/07/21 20:50 Hydromorphone 1 Mg/1 Ml Inj IV 0.5 mg Q3H PRN Administration Pain , Severe (7-10) Dextrose/Sodium Chloride 1,000 mls @ 100 mls/hr 06/06/21 22:30 06/07/21 23:14 D5/0.45ns IV 100 mls/hr DIRECT ROYER Administration Piperacillin Sod/Tazobactam Sod 4.5 gm in 100 mls @ 200 mls/hr 06/06/21 23:00 06/08/21 00:48 Zosyn/Ns 4.5gm/100ml IV Infused Q8H ROYER Infusion Protocol Insulin Human Lispro 0 unit 06/06/21 22:30 06/07/21 23:00 Insulin Lispro 100 Unit/Ml SUB-Q Not Given ACHS ROYER Protocol Methimazole 10 mg 06/07/21 10:00 06/07/21 10:38 Methimazole 5 Mg Tab PO 10 mg Q24HR ROYER Administration Ondansetron HCl 4 mg 06/06/21 22:30 Ondansetron 4 Mg/2 Ml Inj IV Q8H PRN Nausea And Vomiting Oxycodone/Acetaminophen 1 tab 06/06/21 22:30 06/08/21 01:56 Oxycodone /Acetaminophen 5-325mg Tab PO 1 tab Q6H PRN Administration Pain, Moderate (4-6) Sodium Chloride 10 ml 06/06/21 22:30 06/07/21 23:08 Sodium Chloride 0.9% 10 Ml Flush Syringe IV 10 ml BID ROYER Administration Sodium Chloride 10 ml 06/06/21 22:30 Sodium Chloride 0.9% 10 Ml Flush Syringe IV PRN PRN LINE FLUSH Nutrition/Malnutrition Assess - Dietary Evaluation Nutrition/Malnutrition Findings: Nutrition Notes Start: 06/07/21 12:00 Freq: Status: Active Protocol: Document 06/07/21 12:00 [facility] (Rec: 06/07/21 12:02 [facility] [id number]) Nutrition Notes Need for Assessment generated from: MD Order,Education Initial or Follow up Brief Note Current Diagnosis Diabetes,Stroke Other Pertinent Diagnosis Hypoglycemia, Cholecystitis Current Diet Cardiac/Consistent CHO Labs/Tests POC Glu range: 53-278 Subjective/Other Information RD consulted for diet education. Pt in ED at this time. Burn Absent Trauma Absent Minimum of two criteria No Nutrition Intervention Follow-Up By: 06/11/21 Additional Comments F/U: transfer to medical floor ; diet education needs
[2021-06-08] MEDS: PIPERACIL/TAZOBACTA 4.5/NS 100 4.5 GM/100 ML VIAL IV SCH ×3 (15:49→23:22)
[2021-06-08] MEDS: FAMOTIDINE 20 MG/2 ML INJ IV SCH ×2 (15:52→23:21)
[2021-06-08] MEDS: methIMAzole 5 MG TAB PO SCH (15:53)
--- NOTE | 2021-06-08 15:58 | Progress Note ---
Assessment and Plan 61 yo M with 1. cholelithiasis, possible cholecystitis HIDA - GB EF 6%, no obstruction Plan: 1. continue diet 2. No indication for cholecystectomy on patient as he is asymptomatic Ok to dc from surgery standpoint, will s/o. Thank you for this consultation. Please call with any questions or concerns. Evaluation and treatment of this patient was during the time of the national and state emergency arising from COVID19 coronavirus pandemic. Treatment and procedures performed meet the current and available best practice and guidelines for patient during the COVID pandemic. Subjective Date of service: 06/08/21 Narrative: Pt seen and examined. No complaints. No n/v, abd pain. Sabrina diet. Objective Vital Signs - 12hr 06/08/21 06/08/21 07:44 10:00 Temperature 98.4 F Pulse Rate 71 Respiratory 18 18 Rate Blood Pressure 142/91 O2 Sat by Pulse 98 98 Oximetry - General physical appearance Narrative Exam: Gen: AAOx3. NAD Abd: soft, NT, ND - Labs 06/07/21 05:10 06/07/21 05:10 Thyroid panel 06/08/21 Range/Units 14:35 TSH 0.294 (0.270-4.200) mlU/mL Pituitary panel 06/08/21 Range/Units 14:35 TSH 0.294 (0.270-4.200) mlU/mL
[2021-06-09] MEDS: PIPERACIL/TAZOBACTA 4.5/NS 100 4.5 GM/100 ML VIAL IV SCH ×2 (06:23→19:29)
[2021-06-09] MEDS: GABAPENTIN 300 MG CAP PO SCH ×3 (06:29→21:06)
[2021-06-09] MEDS: INSULIN LISPRO 100 UNIT/ML SUB-Q SCH ×4 (07:30→21:06)
--- NOTE | 2021-06-09 08:31 | Discharge Summary ---
Providers - Providers Date of Admission: 06/08/21 13:58 Attending physician: SANTY FOWLER MD 06/06/21 22:00 Consult to Dietitian/Nutrition [CONS] Routine Physician Instructions: Reason For Exam: Reason for Consult: Diet education Consult to Physician [CONS] Routine Comment: Consulting Provider: WICHO GARZA Physician Instructions: Reason For Exam: Cholecystitis 06/07/21 07:38 Occupational Therapy Evaluate and Treat [CONS] Routine Comment: Reason For Exam: debility Physical Therapy Evaluation and Treat [CONS] Routine Comment: Reason For Exam: debility 06/08/21 13:57 Consult to Physician [CONS] Routine Comment: Consulting Provider: RANDY BROCK Physician Instructions: Reason For Exam: cva Primary care physician: PEG DRIVER Hospitalization Reason for admission: Generalized weakness Condition: Good Hospital course: 61-year-old male with past medical history of diabetes and hemorrhagic stroke was brought to the hospital because of weakness and lightheadedness ongoing for 5 days. He also reports pain in his bilateral lower legs for several weeks. Patient received a prescription for gabapentin on yesterday, but has not yet started the medication. Patient denies any fever or chills, vomiting or diarrhea, abdominal pain, chest pain, shortness of breath. Patient reports some headache and nasal congestion. Patient is not vaccinated against COVID-19. EMS states patient was hypotensive en route, with systolic BP in the 70s. However initial blood pressure here in the ED is 138/81. In the emergency room patient is found hypoglycemia. Patient blood glucose was initially 71 the next 1 is 53. Patient also has TSH of 0.122 and free T4 1.58, patient WBC 16.8. CT scan of the abdomen and pelvis showed abnormal appearance of the gallbladder. Gallbladder is abnormally distended with gallbladder wall thickening and gallstone. The appearance is consistent with acute cholecystitis. No other significant finding within the abdomen or pelvis (1) Acute Cholecystitis Current Visit: Yes Status: Acute Plan to address problem: Zosyn 4.5 g IV every 8 hours. Ultrasound of the right upper quadrant rule out cholecystitis. Will consult surgery for evaluation and treatment. Recheck CBC BMP in the morning (2) Lightheadedness Current Visit: Yes Status: Acute Plan to address problem: D5 half-normal saline at the rate of 100 cc/h. We will monitor the blood pressure closely. (3)Hypoglycemia Current Visit: Yes Status: Acute Plan to address problem: Admit the patient to the medical telemetry. Put the patient on 1800 kcal ADA diet. D5 half-normal saline at the rate of 100 cc/h. We discontinue the home insulin. We will monitor the blood glucose closely. Diabetic education. recheck CBC BMP in the morning (4) History of stroke Current Visit: Yes Status: Acute Plan to address problem: Stable we will continue the home medication. Outpatient follow-up with neurology (5) Hyperthyroidism Current Visit: Yes Status: Acute Plan to address problem: Hydrocortisone 100 mg IV x1 dose methimazole 40 mg p.o. x1 by the ER physician. We also put the patient on propanolol. Outpatient follow-up with endocrinology re (6) Diabetes Current Visit: Yes Status: Acute Plan to address problem: 1800 kcal ADA diet. Low-dose Humalog sliding scale. Diabetic education recheck CBC BMP in the morning (7) Chronic Encephalopathy with intermittent Acute Delirium 06/07: Awaiting surgical eval, will recommend repeat TSH AND FREE T4 outpatient, Monitor K LEVEL will give Kayexalate, patient has been started on the gabapentin that was prescribed for him yesterday. Will check Covid vaccine testing considering possible surgical procedure. Continue D5 on hold his diabetic m edication he appears to have significant insulin dosages at home. Will readjust if blood sugar continues to stay up. We will also obtain PT OT evaluation 06/08: Patient with Diarrhea, unable to assist himself, this could be due to Kayaxalte given for Potassium. 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 Will monitor and await Neurology eval, will also get MRI and anticipate discharge in am FOLLOWING PT/OT eval. CAREGIVERS NUMBER: [phone] Addendum entered and electronically signed by SANTY FOWLER MD 06/08/21 14:08: Patient is legally blind and also has left sided parasis and his gait normally is shuffle at best. 06/09: Patient seen and examined today reports back pain which he says has been ongoing but improving today. Still awaiting physical therapy evaluation but otherwise is clinically stable for discharge. We will get an MRI of the head which has been ordered and unfortunately has not been done we will also obtain imaging study of the back to rule out any other etiology no evidence pointing towards infectious process at this time. Patient will likely need placement or home with home health in addition to his caregiver. Due to deconditioning will need PT OT at home. Disposition: HOME HEALTH CARE SERVICE Final Discharge Diagnosis (Prints w/discharge instructions): CVA Time spent for discharge: 35 mins Core Measure Documentation - Palliative Care Palliative Care/ Comfort Measures: Not Applicable - Core Measures Any of the following diagnoses?: none Exam - Physical Exam Narrative exam: General appearance: Present: no acute distress, well-nourished, a bit pale appearing - EENT Eyes: Present: PERRL ENT: hearing intact, clear oral mucosa - Neck Neck: Present: supple, normal ROM - Respiratory Respiratory effort: normal Respiratory: bilateral: CTA - Cardiovascular Heart Sounds: Present: S1 & S2. Absent: rub, click - Extremities Extremities: pulses symmetrical, No edema Peripheral Pulses: within normal limits - Abdominal General gastrointestinal: Present: soft, non-tender, non-distended, normal bowel sounds Male genitourinary: Present: normal - Integumentary Integumentary: Present: clear, warm, dry - Musculoskeletal Musculoskeletal: gait normal, strength equal bilaterally. Some tenderness elicited on palpating bilateral lower extremity - Psychiatric Psychiatric: appropriate mood/affect, poor INSIGHT - Neurologic Neurologic: CNII-XII intact, moves all extremities - Constitutional Vitals: Temp Pulse Resp BP Pulse Ox 98.2 F 80 18 136/80 98 06/09/21 05:25 06/09/21 05:25 06/09/21 05:25 06/09/21 05:25 06/09/21 05:25 Plan Activity: advance as tolerated, fall precautions Diet: low fat, low salt Special Instructions: record daily BP diary, record blood sugar diary, physical therapy, occupational therapy Plan of Treatment: Please continue appropriate home medications. Recommend to follow-up with neurology and also surgery outpatient. Discussed of medications with physician primary to ensure appropriateness as I do not have accurate list here. Follow up with: WICHO GARZA DO [Staff Physician] - 7 Days PRIMARY CARE, [Primary Care Provider] - 3-5 Days Prescriptions: oxyCODONE /ACETAMINOPHEN [Percocet 5/325 mg] 1 tab PO Q6H PRN #14 tablet PRN Reason: Pain, Moderate (4-6) methIMAzole [Tapazole] 5 mg PO Q24HR #30 tablet
[2021-06-09] MEDS: HYDROmorphone 1 MG/1 ML INJ IV PRN (10:46)
[2021-06-09] MEDS: FAMOTIDINE 20 MG/2 ML INJ IV SCH ×2 (12:13→21:11)
[2021-06-09] MEDS: methIMAzole 5 MG TAB PO SCH (12:13)
--- NOTE | 2021-06-09 13:33 | Magnetic Resonance Report ---
MR brain wo con INDICATION / CLINICAL INFORMATION: 61 years Male; cva, LT SIDED WEAKNESS. TECHNIQUE: Multiplanar, multisequence MR images of the brain were obtained. COMPARISON: 06/06/2021 FINDINGS: BRAIN / INTRACRANIAL CONTENTS: Craniotomy site seen on the left. Encephalomalacia seen in the left frontal lobe, as well as the left occipital lobe (left MCA and MAINTENANCE ENGINEER territories, respectively). Prior branch infarcts might be consideration. Otherwise, no acute hemorrhage, mass effect, midline shift, hydrocephalus, or acute, large territori al infarct. Mild, diffuse cerebral atrophy suggested. There are mild areas of increased signal intensity on FLAIR imaging in the white matter of the cerebr al hemispheres. These are nonspecific findings and may be related to microangiopathy (hypertension, d iabetes, atherosclerosis), given the patient's age. CRANIOCERVICAL JUNCTION: No significant abnormality. VASCULAR FLOW-VOIDS: No significant abnormality. ORBITS: No significant abnormality of visualized orbits. SINUSES / MASTOIDS: Mild to moderate mucosal thickening seen in the ethmoids. ADDITIONAL FINDINGS: None. IMPRESSION: 1. No focal mass, hemorrhage, hydrocephalus, or acute ischemia. 2. Old branch infarct suggested, as described above. Signer Name: Chano Headley MD, III Signed: 06/09/2021 1:29 PM Workstation Name: [id number]
--- NOTE | 2021-06-09 16:36 | Magnetic Resonance Report ---
MR lumbar spine wo con INDICATION / CLINICAL INFORMATION: low back pain. TECHNIQUE: Multisequence, multiplanar images of the lumbar spine were obtained. COMPARISON: CT abdomen pelvis 06/06/2021 FINDINGS: NOMENCLATURE: For the purposes of this report, L5-S1 is defined as axial image 42 of series 6. ALIGNMENT: Minimal retrolisthesis of L5 on S1. No scoliosis.. VERTEBRAE:No aggressive osseous marrow signal. Vertebral body heights are preserved. VISUALIZED SPINAL CORD: The conus appears within normal limits. [id number] ANALYSIS: L1-2: No significant spinal canal stenosis. No significant foraminal narrowing. L2-3: No significant spinal canal stenosis. No significant foraminal narrowing. L3-4: No significant spinal canal stenosis. No significant foraminal narrowing. L4-5: Small disc bulge. Mild facet arthropathy. No significant spinal canal stenosis. No significant foraminal narrowing. L5-S1: Mild facet arthropathy. No significant spinal canal stenosis. No significant foraminal narrowi ng. PARASPINAL SOFT TISSUES: No significant abnormality. ADDITIONAL FINDINGS: Gallbladder is dilated. IMPRESSION: * Commensurate for age spondylosis. No significant spinal canal, lateral recess, or foraminal stenos is. * Gallbladder is dilated compared to prior study. Definitions used for the purposes of this report: Lumbar canal stenosis (Park et al. Br J Radiol. 2013 January;86(6073):[id number]): No stenosis: No attenuation of the CSF spaces Mild stenosis: Anterior CSF space mildly obliterated Moderate stenosis: Anterior CSF space is moderately obliterated; cauda equina partially aggregated Severe stenosis: Marked compression of the dural sac; cauda equina cannot be visually and a ppear as a bundle Lumbar lateral recess stenosis (Sesar et al. World J Radiol. 2017 February 20;9(5):223-229): No stenosis: Nerve root is bathed in fluid Mild stenosis: Narrowing of the lateral recess without root deviation Moderate stenosis: Narrowing of the recess with nerve root deviation Severe stenosis: Compression of the nerve root Lumbar neural foraminal stenosis (Kristian aragon al. AJR Am J Roentgenol. 2009;194(4):1095-8): No stenosis: No attenuation of the fat in the foramen Mild stenosis: Loss of the fat in the foramen on two sides Moderate stenosis: Loss of the fat in the foramen all four sides Severe stenosis: Loss of the fat in the foramen all four sides and compression of the nerve root Signer Name: Anthony Silva MD Signed: 06/09/2021 4:32 PM Workstation Name: [id number]
--- NOTE | 2021-06-09 23:25 | Consultation ---
History of Present Illness Consult date: 06/09/21 Reason for Consult: cva History of present illness: Per MRI, no evidence of an acute cva. Past History Past Medical History: diabetes, stroke, other (Hemorrhagic CVA) Past Surgical History: Other (unknown) Social history: no significant social history Family history: no significant family history Medications and Allergies Allergies Allergy/AdvReac Type Severity Reaction Status Date / Time No Known Allergies Allergy Verified 11/26/18 01:03 Home Medications Medication Instructions Recorded Confirmed Last Taken Type Gabapentin [Neurontin] 600 mg PO Q8H 06/06/21 06/06/21 Unknown History methIMAzole [Tapazole] 5 mg PO Q24HR #30 tablet 06/09/21 Unknown Rx oxyCODONE /ACETAMINOPHEN [Percocet 1 tab PO Q6H PRN #14 tablet 06/09/21 Unknown Rx 5/325 mg] Active Meds: Active Medications Acetaminophen (Acetaminophen 325 Mg Tab) 650 mg PO Q4H PRN PRN Reason: Pain MILD(1-3)/Fever >100.5/HARO Albuterol (Albuterol 2.5 Mg/3 Ml Nebu) 2.5 mg IH Q4HRT PRN PRN Reason: Shortness Of Breath Dextrose (Dextrose 50% In Water (25gm) 50 Ml Syringe) 50 ml IV Q30MIN PRN; Protocol PRN Reason: Hypoglycemia Famotidine (Famotidine 20 Mg/2 Ml Inj) 20 mg IV BID ROYER Last Admin: 06/09/21 21:11 Dose: Not Given Documented by: Gabapentin (Gabapentin 300 Mg Cap) 600 mg PO Q8H ROYER Last Admin: 06/09/21 21:06 Dose: 600 mg Documented by: Hydromorphone HCl (Hydromorphone 1 Mg/1 Ml Inj) 0.5 mg IV Q3H PRN PRN Reason: Pain , Severe (7-10) Last Admin: 06/09/21 10:46 Dose: 0.5 mg Documented by: Piperacillin Sod/Tazobactam Sod (Zosyn/Ns 4.5gm/100ml) 4.5 gm in 100 mls @ 200 mls/hr IV Q8H ROYER; Protocol Last Admin: 06/09/21 19:29 Dose: Not Given Documented by: Insulin Human Lispro (Insulin Lispro 100 Unit/Ml) 0 unit SUB-Q ACHS ROYER; Protocol Last Admin: 06/09/21 21:06 Dose: 8 unit Documented by: Methimazole (Methimazole 5 Mg Tab) 10 mg PO Q24HR ROYER Last Admin: 06/09/21 12:13 Dose: 10 mg Documented by: Ondansetron HCl (Ondansetron 4 Mg/2 Ml Inj) 4 mg IV Q8H PRN PRN Reason: Nausea And Vomiting Oxycodone/Acetaminophen (Oxycodone /Acetaminophen 5-325mg Tab) 1 tab PO Q6H PRN PRN Reason: Pain, Moderate (4-6) Last Admin: 06/08/21 15:52 Dose: 1 tab Documented by: Sodium Chloride (Sodium Chloride 0.9% 10 Ml Flush Syringe) 10 ml IV BID [facility] Last Admin: 06/09/21 21:11 Dose: 10 ml Documented by: Sodium Chloride (Sodium Chloride 0.9% 10 Ml Flush Syringe) 10 ml IV PRN PRN PRN Reason: LINE FLUSH Last Admin: 06/09/21 12:14 Dose: 10 ml Documented by: Physical Examination - Vital Signs Vital Signs: Vital Signs Pulse Resp Pulse Ox 83 10 L 99 06/06/21 13:06 06/06/21 13:06 06/06/21 13:06 Results - Laboratory Findings CBC and BMP: 06/07/21 05:10 06/07/21 05:10 Abnormal Lab Findings: Abnormal Labs 06/06/21 06/06/21 06/06/21 13:45 13:45 13:45 WBC 16.8 H RBC Hgb 11.4 L Hct 33.4 L Lymph % (Auto) 6.1 L Lymph # (Auto) 1.0 L Harris # (Auto) 1.1 H Seg Neutrophils % 86.1 H Seg Neutrophils # 14.4 H APTT 37.1 H D-Dimer 396.80 H Potassium BUN 27 H Glucose 71 L POC Glucose AST 44 H Alkaline Phosphatase 437 H Albumin 3.0 L TSH Free T4 06/06/21 06/06/21 06/06/21 16:54 18:47 22:30 WBC RBC Hgb Hct Lymph % (Auto) Lymph # (Auto) Harris # (Auto) Seg Neutrophils % Seg Neutrophils # APTT D-Dimer Potassium BUN Glucose POC Glucose 53 L 154 H AST Alkaline Phosphatase Albumin TSH 0.122 L Free T4 06/06/21 06/07/21 06/07/21 Unknown 05:10 05:10 WBC 11.1 H RBC 3.49 L Hgb 10.8 L Hct 31.9 L Lymph % (Auto) 6.5 L Lymph # (Auto) 0.7 L Harris # (Auto) Seg Neutrophils % 89.2 H Seg Neutrophils # 9.9 H APTT D-Dimer Potassium 5.1 H D BUN 27 H Glucose 224 H POC Glucose AST Alkaline Phosphatase Albumin TSH Free T4 1.58 H 06/07/21 06/07/21 06/07/21 08:02 11:14 16:18 WBC RBC Hgb Hct Lymph % (Auto) Lymph # (Auto) Harris # (Auto) Seg Neutrophils % Seg Neutrophils # APTT D-Dimer Potassium BUN Glucose POC Glucose 278 H 235 H 212 H AST Alkaline Phosphatase Albumin TSH Free T4 06/07/21 06/08/21 06/08/21 21:59 15:35 22:52 WBC RBC Hgb Hct Lymph % (Auto) Lymph # (Auto) Harris # (Auto) Seg Neutrophils % Seg Neutrophils # APTT D-Dimer Potassium BUN Glucose POC Glucose 151 H 345 H 168 H AST Alkaline Phosphatase Albumin TSH Free T4 06/09/21 06/09/21 07:50 20:36 WBC RBC Hgb Hct Lymph % (Auto) Lymph # (Auto) Harris # (Auto) Seg Neutrophils % Seg Neutrophils # APTT D-Dimer Potassium BUN Glucose POC Glucose 147 H 317 H AST Alkaline Phosphatase Albumin TSH Free T4 Assessment and Plan Per MRI, no evidence of an acute cva; pt is awaiting discharge. Recommend followup with Neurology in 4 weeks.
--- NOTE | 2021-06-10 | Event Note ---
Date: 06/09/21 Patient's caregiver Bridget ([phone]) spoke with RN in regards to being unable to pick patient up tonight. Instead she will pick patient up in the morning, because she has some concerns that she would like to discuss with provider
[2021-06-10 08:06] VITALS: BP 146/88
[2021-06-10] MEDS: GABAPENTIN 300 MG CAP PO SCH (08:57)
[2021-06-10] MEDS: INSULIN LISPRO 100 UNIT/ML SUB-Q SCH (08:59)
[2021-06-10] MEDS: FAMOTIDINE 20 MG/2 ML INJ IV SCH ×2 (09:00→09:09)
[2021-06-10] MEDS: methIMAzole 5 MG TAB PO SCH (09:02)
[2021-06-10] MEDS ORDERED: FAMOTIDINE 20 MG TAB PO SCH (10:00)
--- NOTE | 2021-06-10 14:37 | Progress Note ---
Assessment and Plan Assessment and plan: 61-year-old male with past medical history of diabetes and hemorrhagic stroke was brought to the hospital because of weakness and lightheadedness ongoing for 5 days. He also reports pain in his bilateral lower legs for several weeks. Patient received a prescription for gabapentin on yesterday, but has not yet started the medication. Patient denies any fever or chills, vomiting or diarrhea, abdominal pain, chest pain, shortness of breath. Patient reports some headache and nasal congestion. Patient is not vaccinated against COVID-19. EMS states patient was hypotensive en route, with systolic BP in the 70s. However initial blood pressure here in the ED is 138/81. In the emergency room patient is found hypoglycemia. Patient blood glucose was initially 71 the next 1 is 53. Patient also has TSH of 0.122 and free T4 1.58, patient WBC 16.8. CT scan of the abdomen and pelvis showed abnormal appearance of the gallbladder. Gallbladder is abnormally distended with gallbladder wall thickening and gallstone. The appearance is consistent with acute cholecystitis. No other significant finding within the abdomen or pelvis (1) Acute Cholecystitis Current Visit: Yes Status: Acute Plan to address problem: Zosyn 4.5 g IV every 8 hours. Ultrasound of the right upper quadrant rule out cholecystitis. Will consult surgery for evaluation and treatment. Recheck CBC BMP in the morning (2) Lightheadedness Current Visit: Yes Status: Acute Plan to address problem: D5 half-normal saline at the rate of 100 cc/h. We will monitor the blood pressure closely. (3)Hypoglycemia Current Visit: Yes Status: Acute Plan to address problem: Admit the patient to the medical telemetry. Put the patient on 1800 kcal ADA diet. D5 half-normal saline at the rate of 100 cc/h. We discontinue the home insulin. We will monitor the blood glucose closely. Diabetic education. recheck CBC BMP in the morning (4) History of stroke Current Visit: Yes Status: Acute Plan to address problem: Stable we will continue the home medication. Outpatient follow-up with neurology (5) Hyperthyroidism Current Visit: Yes Status: Acute Plan to address problem: Hydrocortisone 100 mg IV x1 dose methimazole 40 mg p.o. x1 by the ER physician. We also put the patient on propanolol. Outpatient follow-up with endocrinology re (6) Diabetes Current Visit: Yes Status: Acute Plan to address problem: 1800 kcal ADA diet. Low-dose Humalog sliding scale. Diabetic education recheck CBC BMP in the morning (7) Chronic Encephalopathy with intermittent Acute Delirium 06/07: Awaiting surgical eval, will recommend repeat TSH AND FREE T4 outpatient, Monitor K LEVEL will give Kayexalate, patient has been started on the gabapentin that was prescribed for him yesterday. Will check Covid vaccine testing c onsidering possible surgical procedure. Continue D5 on hold his diabetic medication he appears to have significant insulin dosages at home. Will readjust if blood sugar continues to stay up. We will also obtain PT OT evaluation 06/08: Patient with Diarrhea, unable to assist himself, this could be due to Kayaxalte given for Potassium. 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 Will monitor and await Neurology eval, will also get MRI and anticipate discharge in am FOLLOWING PT/OT eval. CAREGIVERS NUMBER: [phone] Patient is legally blind and also has left sided parasis and his gait normally is shuffle at best. 06/09: Patient seen and examined today reports back pain which he says has been ongoing but improving today. Still awaiting physical therapy evaluation but otherwise is clinically stable for discharge. We will get an MRI of the head which has been ordered and unfortunately has not been done we will also obtain imaging study of the back to rule out any other etiology no evidence pointing towards infectious process at this time. Patient will likely need placement or home with home health in addition to his caregiver. Due to deconditioning will need PT/OT at home. 06/10: Patient seen and examined, resting comfortable, clinically improved. stable for discharge, no cva on MRI History Interval history: Patient seen and examined, no new complains Hospitalist Physical - Physical exam Narrative exam: General appearance: Present: no acute distress, well-nourished, a bit pale appearing - EENT Eyes: Present: PERRL ENT: hearing intact, clear oral mucosa - Neck Neck: Present: supple, normal ROM - Respiratory Respiratory effort: normal Respiratory: bilateral: CTA - Cardiovascular Heart Sounds: Present: S1 & S2. Absent: rub, click - Extremities Extremities: pulses symmetrical, No edema Peripheral Pulses: within normal limits - Abdominal General gastrointestinal: Present: soft, non-tender, non-distended, normal bowel sounds Male genitourinary: Present: normal - Integumentary Integumentary: Present: clear, warm, dry - Musculoskeletal Musculoskeletal: gait normal, strength equal bilaterally. Some tenderness elicited on palpating bilateral lower extremity - Psychiatric Psychiatric: appropriate mood/affect, poor INSIGHT - Neurologic Neurologic: CNII-XII intact, moves all extremities - Constitutional Vitals: Temp Pulse Resp BP Pulse Ox 98.0 F 96 H 18 146/88 98 06/10/21 07:30 06/10/21 07:30 06/10/21 10:00 06/10/21 07:30 06/10/21 10:00 General appearance: Present: no acute distress, well-nourished HEART Score - HEART Score Troponin: Troponin T 0.013 ng/mL (0.00-0.029) 06/06/21 13:45 Results - Labs CBC & Chem 7: 06/07/21 05:10 06/07/21 05:10 Labs: Laboratory Last Values WBC 11.1 K/mm3 (4.5-11.0) H 06/07/21 05:10 RBC 3.49 M/mm3 (3.65-5.03) L 06/07/21 05:10 Hgb 10.8 gm/dl (11.8-15.2) L 06/07/21 05:10 Hct 31.9 % (35.5-45.6) L 06/07/21 05:10 MCV 92 fl (84-94) 06/07/21 05:10 MCH 31 pg (28-32) 06/07/21 05:10 MCHC 34 % (32-34) 06/07/21 05:10 RDW 13.8 % (13.2-15.2) 06/07/21 05:10 Plt Count 329 K/mm3 (140-440) 06/07/21 05:10 Lymph % (Auto) 6.5 % (13.4-35.0) L 06/07/21 05:10 [place] % (Auto) 3.8 % (0.0-7.3) 06/07/21 05:10 Eos % (Auto) 0.3 % (0.0-4.3) 06/07/21 05:10 Baso % (Auto) 0.2 % (0.0-1.8) 06/07/21 05:10 Lymph # (Auto) 0.7 K/mm3 (1.2-5.4) L 06/07/21 05:10 [place] # (Auto) 0.4 K/mm3 (0.0-0.8) 06/07/21 05:10 Eos # (Auto) 0.0 K/mm3 (0.0-0.4) 06/07/21 05:10 Baso # (Auto) 0.0 K/mm3 (0.0-0.1) 06/07/21 05:10 Seg Neutrophils % 89.2 % (40.0-70.0) H 06/07/21 05:10 Seg Neutrophils # 9.9 K/mm3 (1.8-7.7) H 06/07/21 05:10 PT 13.4 Sec. (12.2-14.9) 06/06/21 13:45 INR 0.96 (0.87-1.13) 06/06/21 13:45 APTT 37.1 Sec. (24.2-36.6) H 06/06/21 13:45 D-Dimer 396.80 ng/mlDDU (0-234) H 06/06/21 13:45 Sodium 137 mmol/L (137-145) 06/07/21 05:10 Potassium 5.1 mmol/L (3.6-5.0) H D 06/07/21 05:10 Chloride 102.6 mmol/L (98-107) 06/07/21 05:10 Carbon Dioxide 28 mmol/L (22-30) 06/07/21 05:10 Anion Gap 12 mmol/L 06/07/21 05:10 BUN 27 mg/dL (9-20) H 06/07/21 05:10 Creatinine 1.1 mg/dL (0.8-1.3) 06/07/21 05:10 Estimated GFR > 60 ml/min 06/07/21 05:10 BUN/Creatinine Ratio 25 % 06/07/21 05:10 Glucose 224 mg/dL (75-100) H 06/07/21 05:10 POC Glucose 231 mg/dL (70-105) H 06/10/21 07:28 Calcium 8.8 mg/dL (8.4-10.2) 06/07/21 05:10 Total Bilirubin 0.20 mg/dL (0.1-1.2) 06/06/21 13:45 Direct Bilirubin < 0.2 mg/dL (0-0.2) 06/06/21 13:45 Indirect Bilirubin 0.0 mg/dL 06/06/21 13:45 AST 44 units/L (5-40) H 06/06/21 13:45 ALT 54 units/L (7-56) 06/06/21 13:45 Alkaline Phosphatase 437 units/L (35-129) H 06/06/21 13:45 Troponin T 0.013 ng/mL (0.00-0.029) 06/06/21 13:45 Total Protein 6.6 g/dL (6.3-8.2) 06/06/21 13:45 Albumin 3.0 g/dL (3.9-5) L 06/06/21 13:45 Albumin/Globulin Ratio 0.8 % 06/06/21 13:45 TSH 0.294 mlU/mL (0.270-4.200) 06/08/21 14:35 Free T4 1.58 ng/dL (0.76-1.46) H 06/06/21 Unknown Urine Color Yellow (Yellow) 06/07/21 07:21 Urine Turbidity Clear (Clear) 06/07/21 07:21 Urine pH 5.0 (5.0-7.0) 06/07/21 07:21 Ur Specific [place] 1.029 (1.003-1.030) 06/07/21 07:21 Urine Protein 100 mg/dl mg/dL (Negative) 06/07/21 07:21 Urine Glucose (UA) 150 mg/dL (Negative) 06/07/21 07:21 Urine Ketones Neg mg/dL (Negative) 06/07/21 07:21 Urine Blood Neg (Negative) 06/07/21 07:21 Urine Nitrite Neg (Negative) 06/07/21 07:21 Urine Bilirubin Neg (Negative) 06/07/21 07:21 Urine Urobilinogen < 2.0 mg/dL (<2.0) 06/07/21 07:21 Ur Leukocyte Esterase Neg (Negative) 06/07/21 07:21 Urine WBC (Auto) 2.0 /HPF (0.0-6.0) 06/07/21 07:21 Urine RBC (Auto) 1.0 /HPF (0.0-6.0) 06/07/21 07:21 Coronavirus (PCR) Negative (Negative) 06/07/21 10:00 Nutrition/Malnutrition Assess - Dietary Evaluation Nutrition/Malnutrition Findings: Nutrition Notes Start: 06/07/21 12:00 Freq: Status: Discharge Protocol: Document 06/07/21 12:00 [facility] (Rec: 06/07/21 12:02 [facility] [id number]) Nutrition Notes Need for Assessment generated from: MD Order,Education Initial or Follow up Brief Note Current Diagnosis Diabetes,Stroke Other Pertinent Diagnosis Hypoglycemia, Cholecystitis Current Diet Cardiac/Consistent CHO Labs/Tests POC Glu range: 53-278 Subjective/Other Information RD consulted for diet education. Pt in ED at this time. Burn Absent Trauma Absent Minimum of two criteria No Nutrition Intervention Follow-Up By: 06/11/21 Additional Comments F/U: transfer to medical floor ; diet education needs
== END 2021-06-10 10:50 | disposition home health service (06) | DRG 445 ==
LOC: ED 12:58 → 3A 06-07 00:15 → 4A 06-07 19:11 → OBSVTOIN 06-08 13:58
PROVIDERS: ADMIT Hospitalist; ATTEND Internal Medicine
DX: K80.00 Calculus of gallbladder with acute cholecystitis without obstruction (principal); G93.49 Other encephalopathy; E11.649 Type 2 diabetes mellitus with hypoglycemia without coma; Z20.822 Contact with and (suspected) exposure to COVID-19; Z86.73 Personal history of transient ischemic attack (TIA), and cerebral infarction without residual deficits; E05.90 Thyrotoxicosis, unspecified without thyrotoxic crisis or storm; Z79.4 Long term (current) use of insulin; Z79.899 Other long term (current) drug therapy; H54.8 Legal blindness, as defined in USA
CPT/HCPCS: 36415; 70450; 70551; 71045; 71275; 72148; 74177; 76705; 78226; 80048; 80076; 81001; 82962; 84439; 84443; 84484; 85025; 85379; 85610; 85730; 93005; 93970; G0378; A9537; J1170; J1720; J1815; J2543; Q9967; U0003

== ENCOUNTER 2021-10-07 13:40 | Inpatient (IN) | payer MEDICARE ==
--- NOTE | 2021-10-07 13:49 | Emergency Department Report ---
- General Chief complaint: Weakness Stated complaint: WEAKNESS Time Seen by Provider: 10/07/21 13:45 Source: EMS Mode of arrival: Stretcher Limitations: No Limitations - History of Present Illness Initial comments: Patient presented with generalized weakness. EMS had been called because the patient was and will get out of bed. The caregiver thought that he truly was choosing not to get out of bed. Patient states that he is weak. He states that he has been weak for the last couple of days. He has been unable to get out of bed or go to the bathroom for himself. He is not wanting to eat or drink much. There is no vomiting by history. There is no diarrhea by history. Patient states that he feels weak all over. He does not feel weak on one particular side of his body. - Related Data Home Medications Medication Instructions Recorded Confirmed Last Taken Gabapentin [Neurontin] 600 mg PO Q8H 06/06/21 06/06/21 Unknown Previous Rx's Medication Instructions Recorded Last Taken Type methIMAzole [Tapazole] 5 mg PO Q24HR #30 tablet 06/09/21 Unknown Rx oxyCODONE /ACETAMINOPHEN [Percocet 1 tab PO Q6H PRN #14 tablet 06/09/21 Unknown Rx 5/325 mg] Allergies Allergy/AdvReac Type Severity Reaction Status Date / Time No Known Allergies Allergy Verified 11/26/18 01:03 ED Review of Systems ROS: Stated complaint: WEAKNESS Other details as noted in HPI Comment: All other systems reviewed and negative Constitutional: denies: fever Eyes: denies: vision change ENT: denies: throat pain Respiratory: denies: cough Cardiovascular: denies: chest pain Endocrine: denies: unexplained weight loss Gastrointestinal: denies: abdominal pain Genitourinary: denies: dysuria Musculoskeletal: denies: back pain Skin: denies: rash Neurological: as per HPI, weakness Hematological/Lymphatic: denies: easy bruising ED Past Medical Hx - Past Medical History Hx CVA: Yes Hx Diabetes: Yes Additional medical history: Brain Injury/hemm - Surgical History Additional Surgical History: abscess removed from R frontal lobe 11/2002, CVA X2 2002, 2006, left thumb - Family History Family history: hypertension - Social History Smoking Status: Never Smoker - Medications Home Medications: Home Medications Medication Instructions Recorded Confirmed Last Taken Type Gabapentin [Neurontin] 600 mg PO Q8H 06/06/21 06/06/21 Unknown History methIMAzole [Tapazole] 5 mg PO Q24HR #30 tablet 06/09/21 Unknown Rx oxyCODONE /ACETAMINOPHEN [Percocet 1 tab PO Q6H PRN #14 tablet 06/09/21 Unknown Rx 5/325 mg] ED Physical Exam - General Limitations: No Limitations General appearance: alert, in no apparent distress - Head Head exam: Present: atraumatic, normocephalic - Eye Eye exam: Present: normal appearance, EOMI. Absent: scleral icterus - ENT ENT exam: Present: mucous membranes dry, normal external ear exam - Neck Neck exam: Present: normal inspection. Absent: meningismus - Respiratory Respiratory exam: Present: normal lung sounds bilaterally - Cardiovascular Cardiovascular Exam: Present: regular rate, normal rhythm - GI/Abdominal GI/Abdominal exam: Present: soft. Absent: tenderness - Extremities Exam Extremities exam: Present: normal capillary refill - Back Exam Back exam: Absent: CVA tenderness (R), CVA tenderness (L) - Neurological Exam Neurological exam: Present: alert, oriented X3 - Psychiatric Psychiatric exam: Present: normal affect, normal mood - Skin Skin exam: Present: warm, dry ED Course Vital Signs 10/07/21 13:41 Pulse Rate 100 H Respiratory 20 Rate Blood Pressure 160/90 [Left] O2 Sat by Pulse 100 Oximetry - Reevaluation(s) Reevaluation #1: 10/07/21 13:47 EMS was met. Labs ordered. Old records noted. Reevaluation #2: 10/07/21 15:46 Labs are noted. Patient was admitted. ED Medical Decision Making - Lab Data Result diagrams: 10/07/21 14:54 10/07/21 14:54 - Medical Decision Making Patient presents with weakness which is generalized. He was found to have hyponatremia with an acute kidney injury. This is consistent with dehydration. He does have anemia when compared to his last blood test 4 months ago. His hemoglobin dropped 2 g. This can be followed as an inpatient. He will undergo IV hydration. The hospitalist is agreeable to admission. Critical Care Time: No Critical care attestation.: If time is entered above; I have spent that time in minutes in the direct care of this critically ill patient, excluding procedure time. ED Disposition Clinical Impression: Generalized weakness, JAYME (acute kidney injury), Hypernatremia Disposition: 09 ADMITTED INPATIENT Is pt being admited?: Yes Condition: Stable
[2021-10-07 15:13] LABS: Hematocrit 28.3 % (35.5-45.6); Hemoglobin 9.1 gm/dl (11.8-15.2); Mean Corpuscular HGB Conc 32 % (32-34); Mean Corpuscular Volume 91 fl (84-94); Platelet Count 233 K/mm3 (140-440); Red Blood Count 3.12 M/mm3 (3.65-5.03)
[2021-10-07 15:38] LABS: Calcium 9.4 mg/dL (8.4-10.2)
--- NOTE | 2021-10-07 19:22 | Cat Scan Report ---
NONENHANCED CT SCAN OF THE HEAD: INDICATION / CLINICAL INFORMATION: 61 years Male; weakness, h/o bleed. TECHNIQUE: Routine CT head without contrast. All CT scans at this location are performed using CT dos e reduction for ALARA by means of automated exposure control. COMPARISON: CT scan of the head from 06/06/2021 and MRI scan of the brain from 06/09/2021 FINDINGS: BRAIN / INTRACRANIAL CONTENTS: No acute hemorrhage, mass effect, midline shift, hydrocephalus, or acu te, large territorial infarct. No change in the left frontal craniotomy and the left frontal lobe encephalomalacia; no change in the left posterior cerebral artery territory encephalomalacia from chronic ischemia; no CT findings of a cute parenchymal lesion No significant white matter abnormality. CRANIOCERVICAL JUNCTION: No significant abnormality. ORBITS: No significant abnormality of visualized orbits. SINUSES / MASTOIDS: No significant abnormality of the visualized paranasal sinuses or mastoid air isabel ls. ADDITIONAL FINDINGS: None. IMPRESSION: No acute focal parenchymal lesion No change in the left frontal and left occipital encephalomalacia Signer Name: Dayana Valdez MD Signed: 10/07/2021 7:17 PM Workstation Name: [id number]
[2021-10-08] MEDS ORDERED: ONDANSETRON 4 MG/2 ML INJ IV PRN (02:13)
[2021-10-08] MEDS ORDERED: ACETAMINOPHEN 325 MG TAB PO PRN (02:13)
--- NOTE | 2021-10-08 02:13 | History and Physical Report ---
History of Present Illness Date of examination: 10/07/21 Date of admission: 10/07/21 15:47 Chief complaint: Severe weakness for 1 week Poor p.o. intake for 1 week History of present illness: 61-year-old male with history of cerebrovascular accident, type 2 diabetes and traumatic brain injury secondary abscess removal lives in personal- senior care. Patient is able to give a decent history. Patient says he was not able to get out of bed because of weakness. Apparently patient was not given much water and food and does not want to go back there. There is no vomiting. He says he is unable to get out of bed to go to the bathroom by himself. Patient wants to go to another facility for further care. In the emergency room patient was found to be severely dehydrated with high sodium levels because of which patient is being admitted. No fever or chills. Vaccination status - Past Medical History --CVA: Yes --Diabetes: Yes Additional medical history: Brain Injury/hemm - Surgical History Additional Surgical History: abscess removed from R frontal lobe 11/2002, CVA X2 2002, 2006, left thumb - Family History Family history: hypertension - Social History Smoking Status: Never Smoker - Medications Home Medications: Home Medications Medication Instructions Recorded Confirmed Last Taken Type Gabapentin [Neurontin] 600 mg PO Q8H 06/06/21 06/06/21 Unknown History methIMAzole [Tapazole] 5 mg PO Q24HR #30 tablet 06/09/21 Unknown Rx oxyCODONE /ACETAMINOPHEN [Percocet 1 tab PO Q6H PRN #14 tablet 06/09/21 Unknown Rx 5/325 mg] Review of Systems ROS: Stated complaint: WEAKNESS Other details as noted in HPI Comment: All other systems reviewed and negative Constitutional: denies: fever Eyes: denies: vision change ENT: denies: throat pain Respiratory: denies: cough Cardiovascular: denies: chest pain Endocrine: denies: unexplained weight loss Gastrointestinal: denies: abdominal pain Genitourinary: denies: dysuria Musculoskeletal: Severe muscular weakness in the lower extremities Skin: denies: rash Neurological: as per HPI, weakness Hematological/Lymphatic: denies: easy bruising Medications and Allergies Allergies Allergy/AdvReac Type Severity Reaction Status Date / Time No Known Allergies Allergy Verified 11/26/18 01:03 Home Medications Medication Instructions Recorded Confirmed Last Taken Type Gabapentin [Neurontin] 600 mg PO Q8H 06/06/21 06/06/21 Unknown History methIMAzole [Tapazole] 5 mg PO Q24HR #30 tablet 06/09/21 Unknown Rx oxyCODONE /ACETAMINOPHEN [Percocet 1 tab PO Q6H PRN #14 tablet 06/09/21 Unknown Rx 5/325 mg] Exam - Constitutional Vitals: Temp Pulse Resp BP Pulse Ox 100 H 20 160/90 100 10/07/21 13:41 10/07/21 13:41 10/07/21 13:41 10/07/21 13:41 General appearance: Present: no acute distress, cachectic - EENT Eyes: Present: PERRL ENT: hearing intact, clear oral mucosa - Neck Neck: Present: supple, normal ROM - Respiratory Respiratory effort: normal Respiratory: bilateral: CTA - Cardiovascular Heart rate: 78 Rhythm: regular Heart Sounds: Present: S1 & S2. Absent: rub, click - Extremities Extremities: no ischemia, pulses intact, pulses symmetrical, No edema, Full ROM, abnormal (Generalized weakness) Peripheral Pulses: within normal limits - Abdominal General gastrointestinal: Present: soft, non-tender, non-distended, normal bowel sounds Male genitourinary: Present: normal - Integumentary Integumentary: Present: clear, warm, dry - Musculoskeletal Musculoskeletal: left sided weakness, generalized weakness - Psychiatric Psychiatric: appropriate mood/affect, intact judgment & insight - Neurologic Neurologic: CNII-XII intact, focal deficits (Left-sided hemiparalysis), moves all extremities Results - Labs CBC & Chem 7: 10/08/21 04:37 10/08/21 04:37 Labs: Laboratory Last Values WBC 14.7 K/mm3 (4.5-11.0) H 10/07/21 14:54 RBC 3.12 M/mm3 (3.65-5.03) L 10/07/21 14:54 Hgb 9.1 gm/dl (11.8-15.2) L 10/07/21 14:54 Hct 28.3 % (35.5-45.6) L 10/07/21 14:54 MCV 91 fl (84-94) 10/07/21 14:54 MCH 29 pg (28-32) 10/07/21 14:54 MCHC 32 % (32-34) 10/07/21 14:54 RDW 17.0 % (13.2-15.2) H 10/07/21 14:54 Plt Count 233 K/mm3 (140-440) 10/07/21 14:54 Sodium 151 mmol/L (137-145) H 10/07/21 14:54 Potassium 3.5 mmol/L (3.6-5.0) L 10/07/21 14:54 Chloride 118.2 mmol/L (98-107) H 10/07/21 14:54 Carbon Dioxide 19 mmol/L (22-30) L 10/07/21 14:54 Anion Gap 17 mmol/L 10/07/21 14:54 BUN 61 mg/dL (9-20) H 10/07/21 14:54 Creatinine 2.4 mg/dL (0.8-1.3) H 10/07/21 14:54 Estimated GFR 28 ml/min 10/07/21 14:54 BUN/Creatinine Ratio 25 % 10/07/21 14:54 Glucose 213 mg/dL (75-100) H 10/07/21 14:54 Calcium 9.4 mg/dL (8.4-10.2) 10/07/21 14:54 Short CBC 10/07/21 10/08/21 Range/Units 14:54 04:37 WBC 14.7 H 14.2 H (4.5-11.0) K/mm3 Hgb 9.1 L 9.5 L (11.8-15.2) gm/dl Hct 28.3 L 29.8 L (35.5-45.6) % Plt Count 233 259 (140-440) K/mm3 [facility] 10/07/21 10/08/21 14:54 04:37 Sodium 151 H 153 H Potassium 3.5 L 3.8 Chloride 118.2 H 118.6 H Carbon Dioxide 19 L 18 L BUN 61 H 63 H Creatinine 2.4 H 2.0 H Glucose 213 H 238 H Calcium 9.4 9.1 Liver Function 10/08/21 Range/Units 04:37 Total Bilirubin 0.20 (0.1-1.2) mg/dL AST 12 (5-40) units/L ALT 28 (7-56) units/L Alkaline Phosphatase 350 H (35-129) units/L Albumin 3.1 L (3.9-5) g/dL Assessment and Plan Advance Directives: Yes (Full code) VTE prophylaxis?: Chemical Plan of care discussed with patient/family: Yes - Patient Problems (1) Hypernatremia Current Visit: Yes Status: Acute Plan to address problem: Half-normal saline Increase oral fluids in the form of water (2) Hypertension Current Visit: Yes Status: Chronic Qualifiers: Hypertension type: primary hypertension Qualified Code(s): I10 - Essential (primary) hypertension Plan to address problem: Valsartan 160 mg once a day initiated (3) JAYME (acute kidney injury) Current Visit: Yes Status: Acute Plan to address problem: IV fluids for now ATN Nephrology consult if necessary (4) History of stroke Current Visit: No Status: Acute Plan to address problem: Physical therapy and Occupational Therapy (5) Malnutrition Current Visit: Yes Status: Chronic Qualifiers: Malnutrition type: protein-calorie malnutrition Protein-calorie malnutrition severity: moderate Qualified Code(s): E44.0 - Moderate protein- calorie malnutrition Plan to address problem: Dietary supplements requested (6) T2DM (type 2 diabetes mellitus) Current Visit: Yes Status: Acute Qualifiers: Diabetes mellitus 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 Patient is full code. Patient acknowledges understanding and agreement with care plan. +30 minutes. (9) Discharge planning issues Current Visit: Yes Status: Acute Plan to address problem: Patient is personal-senior care or residential facility Case management consult
[2021-10-08] MEDS: FAMOTIDINE 20 MG/2 ML INJ IV SCH ×2 (03:31→10:00)
[2021-10-08 05:10] LABS: Hematocrit 29.8 % (35.5-45.6); Hemoglobin 9.5 gm/dl (11.8-15.2); Mean Corpuscular HGB Conc 32 % (32-34); Mean Corpuscular Volume 91 fl (84-94); Platelet Count 259 K/mm3 (140-440); Red Blood Count 3.29 M/mm3 (3.65-5.03); Red Cell Distribution Width 16.8 % (13.2-15.2)
[2021-10-08 05:28] LABS: Albumin 3.1 g/dL (3.9-5); Calcium 9.1 mg/dL (8.4-10.2)
[2021-10-08 09:54] LABS: Band Neutrophils # (Manual) 0.4 K/mm3; Total Cells Counted 100
[2021-10-08] MEDS: HEPARIN 5,000 UNIT/1 ML VIAL SUB-Q SCH ×2 (10:00→23:23)
[2021-10-08] MEDS: INSULIN LISPRO 100 UNIT/ML SUB-Q SCH ×3 (12:29→23:40)
[2021-10-08] MEDS ORDERED: LORazepam 2 MG/ML VIAL IV PRN (15:48)
[2021-10-09] MEDS: SODIUM CHLORIDE 0.45% 1000 ML 1,000 ML IV SCH ×2 (05:01→13:06)
[2021-10-09 06:11] LABS: Hematocrit 27.7 % (35.5-45.6); Hemoglobin 8.8 gm/dl (11.8-15.2); Mean Corpuscular HGB Conc 32 % (32-34); Mean Corpuscular Volume 91 fl (84-94); Platelet Count 260 K/mm3 (140-440); Red Blood Count 3.05 M/mm3 (3.65-5.03); Red Cell Distribution Width 16.9 % (13.2-15.2)
[2021-10-09 06:15] LABS: Calcium 9.5 mg/dL (8.4-10.2)
--- NOTE | 2021-10-09 07:41 | Progress Note ---
Assessment and Plan - Patient Problems (1) Hypernatremia Current Visit: Yes Status: Acute Plan to address problem: Half-normal saline Increase oral fluids in the form of water (2) Hypertension Current Visit: Yes Status: Chronic Qualifiers: Hypertension type: primary hypertension Qualified Code(s): I10 - Essential (primary) hypertension Plan to address problem: Valsartan 160 mg once a day initiated (3) JAYME (acute kidney injury) Current Visit: Yes Status: Acute Plan to address problem: IV fluids for now ATN Nephrology consult if necessary (4) History of stroke Current Visit: No Status: Acute Plan to address problem: Physical therapy and Occupational Therapy (5) Malnutrition Current Visit: Yes Status: Chronic Qualifiers: Malnutrition type: protein-calorie malnutrition Protein-calorie malnutrition severity: moderate Qualified Code(s): E44.0 - Moderate protein- calorie malnutrition Plan to address problem: Dietary supplements requested (6) T2DM (type 2 diabetes mellitus) Current Visit: Yes Status: Acute Qualifiers: Diabetes mellitus assisted insulin use: unspecified houseman insulin use status Plan to address problem: Check hemoglobin A1c Coverage for now Discharge hypoglycemics to be decided (7) DVT prophylaxis Current Visit: No Status: Acute Plan to address problem: On anticoagulation and GI prophylaxis (8) Advance care planning Current Visit: Yes Status: Acute Plan to address problem: Disease education conducted, care plan discussed, diagnosis discussed, prognosis discussed. Patient is full code. Patient acknowledges understanding and agreement with care plan. +30 minutes. (9) Discharge planning issues Current Visit: Yes Status: Acute Plan to address problem: Patient is personal-half-way or senior care facility Case management consult Subjective Date of service: 10/08/21 Objective - Constitutional Vitals: Vital Signs - 12hr 10/08/21 10/09/21 10/09/21 20:00 04:00 04:03 Temperature 97.4 F L Pulse Rate 70 Respiratory 18 16 Rate Blood Pressure 152/90 O2 Sat by Pulse 100 100 100 Oximetry General appearance: Present: no acute distress, well-nourished - EENT Eyes: PERRL, EOM intact ENT: hearing intact, clear oral mucosa Ears: bilateral: normal - Neck Neck: supple, normal ROM - Respiratory Respiratory effort: normal Respiratory: bilateral: CTA - Breasts Breasts: normal - Cardiovascular Rhythm: regular Heart Sounds: Present: S1 & S2. Absent: gallop, rub Extremities: pulses intact, No edema, normal color, Full ROM - Gastrointestinal General gastrointestinal: Present: soft, non-tender, non-distended, normal bowel sounds - Genitourinary Male genitourinary: normal - Integumentary Integumentary: clear, warm, dry - Musculoskeletal Musculoskeletal: 1, strength equal bilaterally - Neurologic Neurologic: moves all extremities - Psychiatric Psychiatric: memory intact, appropriate mood/affect, intact judgment & insight - Labs CBC & Chem 7: 10/09/21 04:28 10/09/21 04:28 Labs: Abnormal lab results 10/08/21 10/08/21 10/09/21 Range/Units 04:37 23:33 04:28 WBC 13.6 H (4.5-11.0) K/mm3 RBC 3.05 L (3.65-5.03) M/mm3 Hgb 8.8 L (11.8-15.2) gm/dl Hct 27.7 L (35.5-45.6) % RDW 16.9 H (13.2-15.2) % Seg Neuts % (Manual) 85.0 H (40.0-70.0) % Lymphocytes % (Manual) 5.0 L (13.4-35.0) % Seg Neutrophils # Man 12.1 H (1.8-7.7) K/mm3 Lymphocytes # (Manual) 0.7 L (1.2-5.4) K/mm3 Sodium (137-145) mmol/L Potassium (3.6-5.0) mmol/L Chloride (98-107) mmol/L Carbon Dioxide (22-30) mmol/L BUN (9-20) mg/dL Glucose (75-100) mg/dL POC Glucose 207 H (70-105) mg/dL 10/09/21 Range/Units 04:28 WBC (4.5-11.0) K/mm3 RBC (3.65-5.03) M/mm3 Hgb (11.8-15.2) gm/dl Hct (35.5-45.6) % RDW (13.2-15.2) % Seg Neuts % (Manual) (40.0-70.0) % Lymphocytes % (Manual) (13.4-35.0) % Seg Neutrophils # Man (1.8-7.7) K/mm3 Lymphocytes # (Manual) (1.2-5.4) K/mm3 Sodium 151 H (137-145) mmol/L Potassium 3.1 L (3.6-5.0) mmol/L Chloride 118.4 H (98-107) mmol/L Carbon Dioxide 20 L (22-30) mmol/L BUN 48 H (9-20) mg/dL Glucose 129 H (75-100) mg/dL POC Glucose (70-105) mg/dL
[2021-10-09] MEDS: HEPARIN 5,000 UNIT/1 ML VIAL SUB-Q SCH ×2 (09:20→22:30)
[2021-10-09] MEDS: FAMOTIDINE 20 MG/2 ML INJ IV SCH (09:20)
[2021-10-09] MEDS: INSULIN LISPRO 100 UNIT/ML SUB-Q SCH ×4 (09:21→22:30)
[2021-10-09 15:41] LABS: Anisocytosis 1+; Band Neutrophils # (Manual) 0.3 K/mm3; Basophils % (Manual) 0 % (0.0-1.8); Large Platelets Few; Myelocytes # (Manual) 0.4 K/mm3; Platelet Estimate Consistent w Auto; Target Cells Rare; Total Cells Counted 100
[2021-10-09] MEDS ORDERED: POTASSIUM CHLORIDE ER 20 MEQ TAB PO ONE (17:16)
[2021-10-10] MEDS: SODIUM CHLORIDE 0.45% 1000 ML 1,000 ML IV SCH ×3 (04:32→22:05)
[2021-10-10] MEDS: oxyCODONE /ACETAMINOPHEN 5-325MG TAB PO PRN ×2 (06:05→17:50)
[2021-10-10 06:30] LABS: Alanine Aminotransferase 28 units/L (7-56); Albumin 2.5 g/dL (3.9-5); BUN/Creatinine Ratio 40; Blood Urea Nitrogen 36 mg/dL (9-20); Hemolysis Index 3
[2021-10-10] MEDS: INSULIN LISPRO 100 UNIT/ML SUB-Q SCH ×4 (08:29→22:05)
[2021-10-10] MEDS: HEPARIN 5,000 UNIT/1 ML VIAL SUB-Q SCH ×2 (09:07→22:05)
[2021-10-10] MEDS: FAMOTIDINE 20 MG/2 ML INJ IV SCH (09:07)
--- NOTE | 2021-10-10 22:59 | Progress Note ---
Assessment and Plan - Patient Problems (1) Hypernatremia Current Visit: Yes Status: Acute Plan to address problem: Half-normal saline Increase oral fluids in the form of water (2) Hypertension Current Visit: Yes Status: Chronic Qualifiers: Hypertension type: primary hypertension Qualified Code(s): I10 - Essential (primary) hypertension Plan to address problem: Valsartan 160 mg once a day initiated (3) JAYME (acute kidney injury) Current Visit: Yes Status: Acute Plan to address problem: IV fluids for now ATN Nephrology consult if necessary (4) History of stroke Current Visit: No Status: Acute Plan to address problem: Physical therapy and Occupational Therapy (5) Malnutrition Current Visit: Yes Status: Chronic Qualifiers: Malnutrition type: protein-calorie malnutrition Protein-calorie malnutrition severity: moderate Qualified Code(s): E44.0 - Moderate protein- calorie malnutrition Plan to address problem: Dietary supplements requested (6) T2DM (type 2 diabetes mellitus) Current Visit: Yes Status: Acute Qualifiers: 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 Patient is full code. Patient acknowledges understanding and agreement with care plan. +30 minutes. (9) Discharge planning issues Current Visit: Yes Status: Acute Plan to address problem: Patient is personal-nursing home or retirement facility Case management consult Subjective Date of service: 10/10/21 Objective - Constitutional Vitals: Vital Signs - 12hr 10/10/21 10/10/21 10/10/21 12:19 15:54 17:50 Temperature 98.2 F Pulse Rate 80 89 Respiratory 17 18 18 Rate Blood Pressure 149/73 Blood Pressure 135/75 [Left] O2 Sat by Pulse 95 98 Oximetry 10/10/21 10/10/21 18:50 19:02 Temperature 97.4 F L Pulse Rate 97 H Respiratory 17 18 Rate Blood Pressure 149/77 Blood Pressure [Left] O2 Sat by Pulse 98 Oximetry General appearance: Present: no acute distress, well-nourished - EENT Eyes: PERRL, EOM intact ENT: hearing intact, clear oral mucosa Ears: bilateral: normal - Neck Neck: supple, normal ROM - Respiratory Respiratory effort: normal Respiratory: bilateral: CTA - Breasts Breasts: normal - Cardiovascular Rhythm: regular Heart Sounds: Present: S1 & S2. Absent: gallop, rub Extremities: pulses intact, No edema, normal color, Full ROM - Gastrointestinal General gastrointestinal: Present: soft, non-tender, non-distended, normal bowel sounds - Genitourinary Male genitourinary: normal - Integumentary Integumentary: clear, warm, dry - Musculoskeletal Musculoskeletal: 1, strength equal bilaterally - Neurologic Neurologic: moves all extremities - Psychiatric Psychiatric: memory intact, appropriate mood/affect, intact judgment & insight - Labs CBC & Chem 7: 10/09/21 04:28 10/10/21 04:28 Labs: Abnormal lab results 10/10/21 10/10/21 10/10/21 Range/Units 04:28 07:51 11:46 Sodium 149 H (137-145) mmol/L Chloride 120.4 H (98-107) mmol/L Carbon Dioxide 20 L (22-30) mmol/L BUN 36 H (9-20) mg/dL Glucose 260 H (75-100) mg/dL POC Glucose 197 H 165 H (70-105) mg/dL Alkaline Phosphatase 302 H (35-129) units/L Total Protein 5.2 L (6.3-8.2) g/dL Albumin 2.5 L (3.9-5) g/dL 10/10/21 10/10/21 Range/Units 15:55 20:50 Sodium (137-145) mmol/L Chloride (98-107) mmol/L Carbon Dioxide (22-30) mmol/L BUN (9-20) mg/dL Glucose (75-100) mg/dL POC Glucose 188 H 162 H (70-105) mg/dL Alkaline Phosphatase (35-129) units/L Total Protein (6.3-8.2) g/dL Albumin (3.9-5) g/dL
[2021-10-11] MEDS: SODIUM CHLORIDE 0.45% 1000 ML 1,000 ML IV SCH ×2 (05:41→22:21)
[2021-10-11 06:23] LABS: Hematocrit 25.1 % (35.5-45.6); Hemoglobin 8.3 gm/dl (11.8-15.2); Mean Corpuscular HGB Conc 33 % (32-34); Mean Corpuscular Volume 90 fl (84-94); Platelet Count 261 K/mm3 (140-440); Red Blood Count 2.78 M/mm3 (3.65-5.03); Red Cell Distribution Width 17.2 % (13.2-15.2)
[2021-10-11 06:48] LABS: Alanine Aminotransferase 33 units/L (7-56); Albumin 2.2 g/dL (3.9-5); BUN/Creatinine Ratio 29; Blood Urea Nitrogen 29 mg/dL (9-20); Hemolysis Index 0
[2021-10-11 07:51] LABS: Anisocytosis 1+; Basophils % (Manual) 0 % (0.0-1.8); Platelet Estimate Consistent w Auto; Total Cells Counted 100
[2021-10-11] MEDS: INSULIN LISPRO 100 UNIT/ML SUB-Q SCH ×4 (08:00→22:22)
[2021-10-11] MEDS: FAMOTIDINE 20 MG TAB PO SCH (13:26)
[2021-10-11] MEDS: HEPARIN 5,000 UNIT/1 ML VIAL SUB-Q SCH ×2 (13:27→22:21)
--- NOTE | 2021-10-11 16:35 | Progress Note ---
Assessment and Plan - Patient Problems (1) Hypernatremia Current Visit: Yes Status: Acute Plan to address problem: Half-normal saline Increase oral fluids in the form of water (2) Hypertension Current Visit: Yes Status: Chronic Qualifiers: Hypertension type: primary hypertension Qualified Code(s): I10 - Essential (primary) hypertension Plan to address problem: Valsartan 160 mg once a day initiated (3) JAYME (acute kidney injury) Current Visit: Yes Status: Acute Plan to address problem: IV fluids for now ATN Nephrology consult if necessary (4) History of stroke Current Visit: No Status: Acute Plan to address problem: Physical therapy and Occupational Therapy (5) Malnutrition Current Visit: Yes Status: Chronic Qualifiers: Malnutrition type: protein-calorie malnutrition Protein-calorie malnutrition severity: moderate Qualified Code(s): E44.0 - Moderate protein- calorie malnutrition Plan to address problem: Dietary supplements requested (6) T2DM (type 2 diabetes mellitus) Current Visit: Yes Status: Acute Qualifiers: Diabetes mellitus fci insulin use: unspecified intermediate manager insulin use status Plan to address problem: Check hemoglobin A1c Coverage for now Discharge hypoglycemics to be decided (7) DVT prophylaxis Current Visit: No Status: Acute Plan to address problem: On anticoagulation and GI prophylaxis (8) Advance care planning Current Visit: Yes Status: Acute Plan to address problem: Disease education conducted, care plan discussed, diagnosis discussed, prognosis discussed. Patient is full code. Patient acknowledges understanding and agreement with care plan. +30 minutes. (9) Discharge planning issues Current Visit: Yes Status: Acute Plan to address problem: Patient is personal-snf or longterm facility Case management consult Subjective Date of service: 10/09/21 Objective - Constitutional Vitals: Vital Signs - 12hr 10/11/21 09:24 Temperature 97.4 F L Pulse Rate 91 H Respiratory 18 Rate Blood Pressure 128/70 [Left] O2 Sat by Pulse 98 Oximetry General appearance: Present: no acute distress, well-nourished - EENT Eyes: PERRL, EOM intact ENT: hearing intact, clear oral mucosa Ears: bilateral: normal - Neck Neck: supple, normal ROM - Respiratory Respiratory effort: normal Respiratory: bilateral: CTA - Breasts Breasts: normal - Cardiovascular Rhythm: regular Heart Sounds: Present: S1 & S2. Absent: gallop, rub Extremities: pulses intact, No edema, normal color, Full ROM - Gastrointestinal General gastrointestinal: Present: soft, non-tender, non-distended, normal bowel sounds - Genitourinary Male genitourinary: normal - Integumentary Integumentary: clear, warm, dry - Musculoskeletal Musculoskeletal: 1, strength equal bilaterally - Neurologic Neurologic: moves all extremities - Psychiatric Psychiatric: memory intact, appropriate mood/affect, intact judgment & insight - Labs CBC & Chem 7: 10/11/21 04:32 10/11/21 04:32 Labs: Abnormal lab results 10/10/21 10/11/21 10/11/21 Range/Units 20:50 04:32 04:32 WBC 16.6 H (4.5-11.0) K/mm3 RBC 2.78 L (3.65-5.03) M/mm3 Hgb 8.3 L (11.8-15.2) gm/dl Hct 25.1 L (35.5-45.6) % RDW 17.2 H (13.2-15.2) % Seg Neuts % (Manual) 84.0 H (40.0-70.0) % Lymphocytes % (Manual) 9.0 L (13.4-35.0) % Eosinophils % (Manual) 5.0 H (0.0-4.3) % Seg Neutrophils # Man 13.9 H (1.8-7.7) K/mm3 Eosinophils # (Manual) 0.8 H (0.0-0.4) K/mm3 Sodium 147 H (137-145) mmol/L Chloride 116.0 H (98-107) mmol/L Carbon Dioxide 21 L (22-30) mmol/L BUN 29 H (9-20) mg/dL POC Glucose 162 H (70-105) mg/dL Calcium 8.0 L (8.4-10.2) mg/dL Alkaline Phosphatase 324 H (35-129) units/L Total Protein 5.1 L (6.3-8.2) g/dL Albumin 2.2 L (3.9-5) g/dL 10/11/21 Range/Units 11:44 WBC (4.5-11.0) K/mm3 RBC (3.65-5.03) M/mm3 Hgb (11.8-15.2) gm/dl Hct (35.5-45.6) % RDW (13.2-15.2) % Seg Neuts % (Manual) (40.0-70.0) % Lymphocytes % (Manual) (13.4-35.0) % Eosinophils % (Manual) (0.0-4.3) % Seg Neutrophils # Man (1.8-7.7) K/mm3 Eosinophils # (Manual) (0.0-0.4) K/mm3 Sodium (137-145) mmol/L Chloride (98-107) mmol/L Carbon Dioxide (22-30) mmol/L BUN (9-20) mg/dL POC Glucose 148 H (70-105) mg/dL Calcium (8.4-10.2) mg/dL Alkaline Phosphatase (35-129) units/L Total Protein (6.3-8.2) g/dL Albumin (3.9-5) g/dL
--- NOTE | 2021-10-11 16:36 | Progress Note ---
Assessment and Plan - Patient Problems (1) Hypernatremia Current Visit: Yes Status: Acute Plan to address problem: Half-normal saline Increase oral fluids in the form of water (2) Hypertension Current Visit: Yes Status: Chronic Qualifiers: Hypertension type: primary hypertension Qualified Code(s): I10 - Essential (primary) hypertension Plan to address problem: Valsartan 160 mg once a day initiated (3) JAYME (acute kidney injury) Current Visit: Yes Status: Acute Plan to address problem: IV fluids for now ATN Nephrology consult if necessary (4) History of stroke Current Visit: No Status: Acute Plan to address problem: Physical therapy and Occupational Therapy (5) Malnutrition Current Visit: Yes Status: Chronic Qualifiers: Malnutrition type: protein-calorie malnutrition Protein-calorie malnutrition severity: moderate Qualified Code(s): E44.0 - Moderate protein- calorie malnutrition Plan to address problem: Dietary supplements requested (6) T2DM (type 2 diabetes mellitus) Current Visit: Yes Status: Acute Qualifiers: Diabetes mellitus prison insulin use: unspecified watermaster insulin use status Plan to address problem: Check hemoglobin A1c Coverage for now Discharge hypoglycemics to be decided (7) DVT prophylaxis Current Visit: No Status: Acute Plan to address problem: On anticoagulation and GI prophylaxis (8) Advance care planning Current Visit: Yes Status: Acute Plan to address problem: Disease education conducted, care plan discussed, diagnosis discussed, prognosis discussed. Patient is full code. Patient acknowledges understanding and agreement with care plan. +30 minutes. (9) Discharge planning issues Current Visit: Yes Status: Acute Plan to address problem: Patient is personal-skilled nursing or penitentiary facility Case management consult Subjective Date of service: 10/11/21 Objective - Constitutional Vitals: Vital Signs - 12hr 10/11/21 09:24 Temperature 97.4 F L Pulse Rate 91 H Respiratory 18 Rate Blood Pressure 128/70 [Left] O2 Sat by Pulse 98 Oximetry General appearance: Present: no acute distress, well-nourished - EENT Eyes: PERRL, EOM intact ENT: hearing intact, clear oral mucosa Ears: bilateral: normal - Neck Neck: supple, normal ROM - Respiratory Respiratory effort: normal Respiratory: bilateral: CTA - Breasts Breasts: normal - Cardiovascular Rhythm: regular Heart Sounds: Present: S1 & S2. Absent: gallop, rub Extremities: pulses intact, No edema, normal color, Full ROM - Gastrointestinal General gastrointestinal: Present: soft, non-tender, non-distended, normal bowel sounds - Genitourinary Male genitourinary: normal - Integumentary Integumentary: clear, warm, dry - Musculoskeletal Musculoskeletal: 1, strength equal bilaterally - Neurologic Neurologic: moves all extremities - Psychiatric Psychiatric: memory intact, appropriate mood/affect, intact judgment & insight - Labs CBC & Chem 7: 10/11/21 04:32 10/11/21 04:32 Labs: Abnormal lab results 10/10/21 10/11/21 10/11/21 Range/Units 20:50 04:32 04:32 WBC 16.6 H (4.5-11.0) K/mm3 RBC 2.78 L (3.65-5.03) M/mm3 Hgb 8.3 L (11.8-15.2) gm/dl Hct 25.1 L (35.5-45.6) % RDW 17.2 H (13.2-15.2) % Seg Neuts % (Manual) 84.0 H (40.0-70.0) % Lymphocytes % (Manual) 9.0 L (13.4-35.0) % Eosinophils % (Manual) 5.0 H (0.0-4.3) % Seg Neutrophils # Man 13.9 H (1.8-7.7) K/mm3 Eosinophils # (Manual) 0.8 H (0.0-0.4) K/mm3 Sodium 147 H (137-145) mmol/L Chloride 116.0 H (98-107) mmol/L Carbon Dioxide 21 L (22-30) mmol/L BUN 29 H (9-20) mg/dL POC Glucose 162 H (70-105) mg/dL Calcium 8.0 L (8.4-10.2) mg/dL Alkaline Phosphatase 324 H (35-129) units/L Total Protein 5.1 L (6.3-8.2) g/dL Albumin 2.2 L (3.9-5) g/dL 10/11/21 Range/Units 11:44 WBC (4.5-11.0) K/mm3 RBC (3.65-5.03) M/mm3 Hgb (11.8-15.2) gm/dl Hct (35.5-45.6) % RDW (13.2-15.2) % Seg Neuts % (Manual) (40.0-70.0) % Lymphocytes % (Manual) (13.4-35.0) % Eosinophils % (Manual) (0.0-4.3) % Seg Neutrophils # Man (1.8-7.7) K/mm3 Eosinophils # (Manual) (0.0-0.4) K/mm3 Sodium (137-145) mmol/L Chloride (98-107) mmol/L Carbon Dioxide (22-30) mmol/L BUN (9-20) mg/dL POC Glucose 148 H (70-105) mg/dL Calcium (8.4-10.2) mg/dL Alkaline Phosphatase (35-129) units/L Total Protein (6.3-8.2) g/dL Albumin (3.9-5) g/dL
[2021-10-12] MEDS: SODIUM CHLORIDE 0.45% 1000 ML 1,000 ML IV SCH ×2 (05:50→19:13)
[2021-10-12] MEDS: INSULIN LISPRO 100 UNIT/ML SUB-Q SCH ×4 (08:00→21:59)
[2021-10-12] MEDS: FAMOTIDINE 20 MG TAB PO SCH (13:45)
[2021-10-12] MEDS: HEPARIN 5,000 UNIT/1 ML VIAL SUB-Q SCH ×2 (13:45→22:00)
--- NOTE | 2021-10-12 14:05 | Discharge Summary ---
Providers - Providers Date of Admission: 10/07/21 15:47 Date of discharge: 10/12/21 Attending physician: CAMILLA PEREZ 10/08/21 02:17 Physical Therapy Evaluation and Treat [CONS] Routine Comment: Reason For Exam: Severe Debility 10/08/21 08:31 Consult to Case Management [CONS] Routine Services Needed at Discharge: Home Health Services [employer] Notified:: [employer] Comment:: personal senior living/SNF placement Primary care physician: DOM CEDILLO MD Hospitalization Condition: Stable Disposition: 01 HOME / SELF CARE / HOMELESS - Discharge Diagnoses (1) Hypernatremia Status: Acute (2) Hypertension Status: Chronic Qualifiers: Hypertension type: primary hypertension Qualified Code(s): I10 - Essential (primary) hypertension (3) JAYME (acute kidney injury) Status: Acute (4) History of stroke Status: Acute (5) Malnutrition Status: Chronic Qualifiers: Malnutrition type: protein-calorie malnutrition Protein-calorie malnutrition severity: moderate Qualified Code(s): E44.0 - Moderate protein- calorie malnutrition (6) T2DM (type 2 diabetes mellitus) Status: Acute Qualifiers: Diabetes mellitus remote computer terminal operator insulin use: unspecified half-way insulin use status (7) DVT prophylaxis Status: Acute (8) Advance care planning Status: Acute (9) Discharge planning issues Status: Acute Exam - Constitutional Vitals: Temp Pulse Resp BP Pulse Ox 98.3 F 90 16 129/65 96 10/12/21 11:29 10/12/21 11:29 10/12/21 11:29 10/12/21 11:29 10/12/21 11:29 Plan Follow up with: DOM CEDILLO MD [Primary Care Provider] - 7 Days
--- NOTE | 2021-10-13 02:18 | Progress Note ---
Assessment and Plan - Patient Problems (1) Hypernatremia Current Visit: Yes Status: Acute Plan to address problem: Half-normal saline Increase oral fluids in the form of water (2) Hypertension Current Visit: Yes Status: Chronic Qualifiers: Hypertension type: primary hypertension Qualified Code(s): I10 - Essential (primary) hypertension Plan to address problem: Valsartan 160 mg once a day initiated (3) JAYME (acute kidney injury) Current Visit: Yes Status: Acute Plan to address problem: IV fluids for now ATN Nephrology consult if necessary (4) History of stroke Current Visit: No Status: Acute Plan to address problem: Physical therapy and Occupational Therapy (5) Malnutrition Current Visit: Yes Status: Chronic Qualifiers: Malnutrition type: protein-calorie malnutrition Protein-calorie malnutrition severity: moderate Qualified Code(s): E44.0 - Moderate protein- calorie malnutrition Plan to address problem: Dietary supplements requested (6) T2DM (type 2 diabetes mellitus) Current Visit: Yes Status: Acute Qualifiers: Diabetes mellitus senior care insulin use: unspecified intermodal owner operator truck driver insulin use status Plan to address problem: Check hemoglobin A1c Coverage for now Discharge hypoglycemics to be decided (7) DVT prophylaxis Current Visit: No Status: Acute Plan to address problem: On anticoagulation and GI prophylaxis (8) Advance care planning Current Visit: Yes Status: Acute Plan to address problem: Disease education conducted, care plan discussed, diagnosis discussed, prognosis discussed. Patient is full code. Patient acknowledges understanding and agreement with care plan. +30 minutes. (9) Discharge planning issues Current Visit: Yes Status: Acute Plan to address problem: Patient is personal-group home or group home facility Case management consult Subjective Date of service: 10/12/21 Objective - Constitutional Vitals: Vital Signs - 12hr 10/12/21 10/12/21 10/12/21 17:21 19:39 23:50 Temperature 98.0 F 98.5 F 98.5 F Pulse Rate 92 H 91 H 90 Respiratory 16 18 18 Rate Blood Pressure 121/73 138/72 Blood Pressure 130/58 [Right] O2 Sat by Pulse 96 97 97 Oximetry 10/12/21 23:53 Temperature Pulse Rate Respiratory Rate Blood Pressure Blood Pressure [Right] O2 Sat by Pulse 97 Oximetry General appearance: Present: no acute distress, well-nourished - EENT Eyes: PERRL, EOM intact ENT: hearing intact, clear oral mucosa Ears: bilateral: normal - Neck Neck: supple, normal ROM - Respiratory Respiratory effort: normal Respiratory: bilateral: CTA - Breasts Breasts: normal - Cardiovascular Rhythm: regular Heart Sounds: Present: S1 & S2. Absent: gallop, rub Extremities: pulses intact, No edema, normal color, Full ROM - Gastrointestinal General gastrointestinal: Present: soft, non-tender, non-distended, normal bowel sounds - Genitourinary Male genitourinary: normal - Integumentary Integumentary: clear, warm, dry - Musculoskeletal Musculoskeletal: 1, strength equal bilaterally - Neurologic Neurologic: moves all extremities - Psychiatric Psychiatric: memory intact, appropriate mood/affect, intact judgment & insight - Labs CBC & Chem 7: 10/11/21 04:32 10/11/21 04:32 Labs: Abnormal lab results 10/12/21 10/12/21 10/12/21 Range/Units 08:03 11:27 21:11 POC Glucose 112 H 180 H 159 H (70-105) mg/dL
[2021-10-13] MEDS: INSULIN LISPRO 100 UNIT/ML SUB-Q SCH ×4 (09:11→21:33)
[2021-10-13] MEDS: FAMOTIDINE 20 MG TAB PO SCH (10:54)
[2021-10-13] MEDS: HEPARIN 5,000 UNIT/1 ML VIAL SUB-Q SCH ×2 (10:54→21:24)
[2021-10-13] MEDS: SODIUM CHLORIDE 0.45% 1000 ML 1,000 ML IV SCH (21:28)
--- NOTE | 2021-10-14 07:17 | Progress Note ---
Assessment and Plan - Patient Problems (1) Hypernatremia Current Visit: Yes Status: Acute Plan to address problem: Half-normal saline Increase oral fluids in the form of water (2) Hypertension Current Visit: Yes Status: Chronic Qualifiers: Hypertension type: primary hypertension Qualified Code(s): I10 - Essential (primary) hypertension Plan to address problem: Valsartan 160 mg once a day initiated (3) JAYME (acute kidney injury) Current Visit: Yes Status: Acute Plan to address problem: IV fluids for now ATN Nephrology consult if necessary (4) History of stroke Current Visit: No Status: Acute Plan to address problem: Physical therapy and Occupational Therapy (5) Malnutrition Current Visit: Yes Status: Chronic Qualifiers: Malnutrition type: protein-calorie malnutrition Protein-calorie malnutrition severity: moderate Qualified Code(s): E44.0 - Moderate protein- calorie malnutrition Plan to address problem: Dietary supplements requested (6) T2DM (type 2 diabetes mellitus) Current Visit: Yes Status: Acute Qualifiers: Diabetes mellitus exterminator helper insulin use: unspecified long-term insulin use status Plan to address problem: Check hemoglobin A1c Coverage for now Discharge hypoglycemics to be decided (7) DVT prophylaxis Current Visit: No Status: Acute Plan to address problem: On anticoagulation and GI prophylaxis (8) Advance care planning Current Visit: Yes Status: Acute Plan to address problem: Disease education conducted, care plan discussed, diagnosis discussed, prognosis discussed. Patient is full code. Patient acknowledges understanding and agreement with care plan. +30 minutes. (9) Discharge planning issues Current Visit: Yes Status: Acute Plan to address problem: Patient is to be discharged to personal-custodial or detention facility Case management on board Subjective Date of service: 10/13/21 Principal diagnosis: Hyper natremia, JAYME Interval history: 61-year-old male with history of cerebrovascular accident, type 2 diabetes and traumatic brain injury secondary abscess removal lives in personal- custodial. Patient is able to give a decent history. Patient says he was not able to get out of bed because of weakness. Apparently patient was not given much water and food and does not want to go back there. There is no vomiting. He says he is unable to get out of bed to go to the bathroom by himself. Patient wants to go to another facility for further care. In the emergency room patient was found to be severely dehydrated with high sodium levels because of which patient is being admitted. No fever or chills. Vaccination status 10/13/2021 Sodium levels are improved creatinine levels have improved Severe debility Needs transfer to SNF patient is from [facility] where he does not want to go Objective - Constitutional Vitals: Vital Signs - 12hr 10/13/21 10/13/21 10/13/21 19:28 19:53 23:32 Temperature 98.5 F 98.3 F Pulse Rate 88 86 Respiratory 18 18 Rate Blood Pressure 138/76 159/87 O2 Sat by Pulse 98 97 97 Oximetry 10/14/21 04:27 Temperature 98.4 F Pulse Rate 89 Respiratory 18 Rate Blood Pressure 158/85 O2 Sat by Pulse 97 Oximetry General appearance: Present: no acute distress, well-nourished - EENT Eyes: PERRL, EOM intact ENT: hearing intact, clear oral mucosa Ears: bilateral: normal - Neck Neck: supple, normal ROM - Respiratory Respiratory effort: normal Respiratory: bilateral: CTA - Breasts Breasts: normal - Cardiovascular Heart rate: 78 Rhythm: regular Heart Sounds: Present: S1 & S2. Absent: gallop, rub Extremities: pulses intact, No edema, normal color, Full ROM - Gastrointestinal General gastrointestinal: Present: soft, non-tender, non-distended, normal bowel sounds - Genitourinary Male genitourinary: normal - Integumentary Integumentary: clear, warm, dry - Musculoskeletal Musculoskeletal: 1, strength equal bilaterally - Neurologic Neurologic: moves all extremities - Psychiatric Psychiatric: memory intact, appropriate mood/affect, intact judgment & insight - Labs CBC & Chem 7: 10/11/21 04:32 10/11/21 04:32 Labs: Abnormal lab results 10/13/21 10/13/21 10/13/21 Range/Units 11:20 15:38 21:11 POC Glucose 148 H 197 H 184 H (70-105) mg/dL
[2021-10-14] MEDS: INSULIN LISPRO 100 UNIT/ML SUB-Q SCH ×4 (08:57→21:55)
--- NOTE | 2021-10-14 09:05 | Progress Note ---
Assessment and Plan Assessment and plan: Hypernatremia Hypertension Acute kidney injury History of CVA Protein calorie malnutrition Diabetes mellitus type 2 Leukocytosis 10/14/2021. Follow-up CBC and chest x-ray for leukocytosis. Continue Accu-Cheks and sliding scale insulin. Follow-up BMP for hypernatremia. History Interval history: No new issues overnight. Hospitalist Physical - Constitutional Vitals: Temp Pulse Resp BP Pulse Ox 98.4 F 89 18 158/85 97 10/14/21 04:27 10/14/21 04:27 10/14/21 04:27 10/14/21 04:27 10/14/21 04:27 General appearance: Present: no acute distress, well-nourished - EENT Eyes: Present: PERRL, EOM intact ENT: hearing intact, clear oral mucosa, dentition normal - Neck Neck: Present: supple, normal ROM - Respiratory Respiratory effort: normal Respiratory: bilateral: CTA - Cardiovascular Rhythm: regular Heart Sounds: Present: S1 & S2. Absent: gallop, rub - Extremities Extremities: no ischemia, No edema, Full ROM - Abdominal General gastrointestinal: soft, non-tender, non-distended, normal bowel sounds - Integumentary Integumentary: Present: clear, warm, dry - Neurologic Neurologic: CNII-XII intact, moves all extremities Results - Labs CBC & Chem 7: 10/11/21 04:32 10/11/21 04:32 Labs: Laboratory Last Values WBC 16.6 K/mm3 (4.5-11.0) H 10/11/21 04:32 RBC 2.78 M/mm3 (3.65-5.03) L 10/11/21 04:32 Hgb 8.3 gm/dl (11.8-15.2) L 10/11/21 04:32 Hct 25.1 % (35.5-45.6) L 10/11/21 04:32 MCV 90 fl (84-94) 10/11/21 04:32 MCH 30 pg (28-32) 10/11/21 04:32 MCHC 33 % (32-34) 10/11/21 04:32 RDW 17.2 % (13.2-15.2) H 10/11/21 04:32 Plt Count 261 K/mm3 (140-440) 10/11/21 04:32 Add Manual Diff Complete 10/11/21 04:32 Total Counted 100 10/11/21 04:32 Seg Neuts % (Manual) 84.0 % (40.0-70.0) H 10/11/21 04:32 Band Neutrophils % 0 % 10/11/21 04:32 Lymphocytes % (Manual) 9.0 % (13.4-35.0) L 10/11/21 04:32 Reactive Lymphs % (Man) 0 % 10/11/21 04:32 Monocytes % (Manual) 2.0 % (0.0-7.3) 10/11/21 04:32 Eosinophils % (Manual) 5.0 % (0.0-4.3) H 10/11/21 04:32 Basophils % (Manual) 0 % (0.0-1.8) 10/11/21 04:32 Metamyelocytes % 0 % 10/11/21 04:32 Myelocytes % 0 % 10/11/21 04:32 Promyelocytes % 0 % 10/11/21 04:32 Blast Cells % 0 % 10/11/21 04:32 Nucleated RBC % Not Reportable 10/11/21 04:32 Seg Neutrophils # Man 13.9 K/mm3 (1.8-7.7) H 10/11/21 04:32 Band Neutrophils # 0.0 K/mm3 10/11/21 04:32 Lymphocytes # (Manual) 1.5 K/mm3 (1.2-5.4) 10/11/21 04:32 Abs React Lymphs (Man) 0.0 K/mm3 10/11/21 04:32 Monocytes # (Manual) 0.3 K/mm3 (0.0-0.8) 10/11/21 04:32 Eosinophils # (Manual) 0.8 K/mm3 (0.0-0.4) H 10/11/21 04:32 Basophils # (Manual) 0.0 K/mm3 (0.0-0.1) 10/11/21 04:32 Metamyelocytes # 0.0 K/mm3 10/11/21 04:32 Myelocytes # 0.0 K/mm3 10/11/21 04:32 Promyelocytes # 0.0 K/mm3 10/11/21 04:32 Blast Cells # 0.0 K/mm3 10/11/21 04:32 WBC Morphology Not Reportable 10/11/21 04:32 Hypersegmented Neuts Not Reportable 10/11/21 04:32 Hyposegmented Neuts Not Reportable 10/11/21 04:32 Hypogranular Neuts Not Reportable 10/11/21 04:32 Smudge Cells Not Reportable 10/11/21 04:32 Toxic Granulation Not Reportable 10/11/21 04:32 Toxic Vacuolation Not Reportable 10/11/21 04:32 Dohle Bodies Not Reportable 10/11/21 04:32 Pelger-Huet Anomaly Not Reportable 10/11/21 04:32 Robert Rods Not Reportable 10/11/21 04:32 Platelet Estimate Consistent w auto 10/11/21 04:32 Clumped Platelets Not Reportable 10/11/21 04:32 Plt Clumps, EDTA Not Reportable 10/11/21 04:32 Large Platelets Not Reportable 10/11/21 04:32 Giant Platelets Not Reportable 10/11/21 04:32 Platelet Satelliting Not Reportable 10/11/21 04:32 Plt Morphology Comment Not Reportable 10/11/21 04:32 RBC Morphology Not Reportable 10/11/21 04:32 Dimorphic RBCs Not Reportable 10/11/21 04:32 Polychromasia Not Reportable 10/11/21 04:32 Hypochromasia Not Reportable 10/11/21 04:32 Poikilocytosis Not Reportable 10/11/21 04:32 Anisocytosis 1+ 10/11/21 04:32 Microcytosis Not Reportable 10/11/21 04:32 Macrocytosis Not Reportable 10/11/21 04:32 Spherocytes Not Reportable 10/11/21 04:32 Pappenheimer Bodies Not Reportable 10/11/21 04:32 Sickle Cells Not Reportable 10/11/21 04:32 Target Cells Not Reportable 10/11/21 04:32 Tear Drop Cells Not Reportable 10/11/21 04:32 Ovalocytes Not Reportable 10/11/21 04:32 Helmet Cells Not Reportable 10/11/21 04:32 Benavidez-Brandt Bodies Not Reportable 10/11/21 04:32 [place] Rings Not Reportable 10/11/21 04:32 [place] Cells Not Reportable 10/11/21 04:32 Bite Cells Not Reportable 10/11/21 04:32 Crenated Cell Not Reportable 10/11/21 04:32 Elliptocytes Not Reportable 10/11/21 04:32 Acanthocytes (Spur) Not Reportable 10/11/21 04:32 Rouleaux Not Reportable 10/11/21 04:32 Hemoglobin C Crystals Not Reportable 10/11/21 04:32 Schistocytes Not Reportable 10/11/21 04:32 Malaria parasites Not Reportable 10/11/21 04:32 Johnny Bodies Not Reportable 10/11/21 04:32 Hem Pathologist Commnt No 10/11/21 04:32 Sodium 147 mmol/L (137-145) H 10/11/21 04:32 Potassium 4.3 mmol/L (3.6-5.0) 10/11/21 04:32 Chloride 116.0 mmol/L (98-107) H 10/11/21 04:32 Carbon Dioxide 21 mmol/L (22-30) L 10/11/21 04:32 Anion Gap 14 mmol/L 10/11/21 04:32 BUN 29 mg/dL (9-20) H 10/11/21 04:32 Creatinine 1.0 mg/dL (0.8-1.3) 10/11/21 04:32 Estimated GFR > 60 ml/min 10/11/21 04:32 BUN/Creatinine Ratio 29 % 10/11/21 04:32 Glucose 86 mg/dL (75-100) 10/11/21 04:32 POC Glucose 165 mg/dL (70-105) H 10/14/21 07:48 Hemoglobin A1c 5.9 % (4-6) 10/09/21 04:28 Calcium 8.0 mg/dL (8.4-10.2) L 10/11/21 04:32 Total Bilirubin 0.20 mg/dL (0.1-1.2) 10/11/21 04:32 AST 23 units/L (5-40) 10/11/21 04:32 ALT 33 units/L (7-56) 10/11/21 04:32 Alkaline Phosphatase 324 units/L (35-129) H 10/11/21 04:32 Total Protein 5.1 g/dL (6.3-8.2) L 10/11/21 04:32 Albumin 2.2 g/dL (3.9-5) L 10/11/21 04:32 Albumin/Globulin Ratio 0.8 % 10/11/21 04:32 Coronavirus (PCR) Negative (Negative) 10/13/21 Unknown Villalta/IV: Voiding Method Indwelling Catheter Active Medications - Current Medications Current Medications: Generic Name Dose Route Start Last Admin Trade Name Freq PRN Reason Stop Dose Admin Acetaminophen 650 mg 10/08/21 02:13 10/11/21 13:26 Acetaminophen 325 Mg Tab PO 650 mg Q4H PRN Administration Pain MILD(1-3)/Fever >100.5/HARO Famotidine 20 mg 10/11/21 10:00 10/13/21 10:54 Famotidine 20 Mg Tab PO 20 mg QAM ROYER Administration Heparin Sodium (Porcine) 5,000 unit 10/08/21 10:00 10/13/21 21:24 Heparin 5,000 Unit/1 Ml Vial SUB-Q 5,000 unit Q12HR ROYER Administration Sodium Chloride 1,000 mls @ 125 mls/hr 10/08/21 03:00 10/13/21 21:28 Nacl 0.45% 1000 Ml IV 125 mls/hr DIRECT ROYER Administration Insulin Human Lispro 0 unit 10/08/21 11:30 10/13/21 21:33 Insulin Lispro 100 Unit/Ml SUB-Q 3 unit ACHS ROYER Administration Protocol Lorazepam 2 mg 10/08/21 15:48 10/08/21 15:00 Lorazepam 2 Mg/Ml Vial IV 2 mg Q3H PRN Administration Agitation Ondansetron HCl 4 mg 10/08/21 02:13 Ondansetron 4 Mg/2 Ml Inj IV Q8H PRN Nausea And Vomiting Oxycodone/Acetaminophen 1 tab 10/08/21 02:13 10/10/21 17:50 Oxycodone /Acetaminophen 5-325mg Tab PO 1 tab Q6H PRN Administration Pain, Moderate (4-6) Sodium Chloride 10 ml 10/08/21 10:00 10/13/21 21:29 Sodium Chloride 0.9% 10 Ml Flush Syringe IV 10 ml BID ROYER Administration Sodium Chloride 10 ml 10/08/21 02:13 Sodium Chloride 0.9% 10 Ml Flush Syringe IV PRN PRN LINE FLUSH Nutrition/Malnutrition Assess - Dietary Evaluation Nutrition/Malnutrition Findings: Nutrition Notes Start: 10/08/21 09:33 Freq: Status: Active Protocol: Document 10/12/21 15:25 ROGERIO (Rec: 10/12/21 15:38 ROGERIO [id number]) Nutrition Notes Initial or Follow up Brief Note Current Diet Cardiac/Consistent Carbohydrates Diet (since D ), D Suppl (D 10/09). Height 5 ft 7 in Weight 85.3 kg [place] Body Weight (kg) 67.27 BMI 29.4 Weight change and time frame 3.1 Kg body weight gained iin 3 days reported. Subjective/Other Information RD consult for routine F/U on dietary intake assessment. Pt's PO intake of meals has been Good (75-100%), according to ADL notes. Pt ready to be discharged to SNF. Percent of energy/protein needs met: Prescribed Cardiac/Consistent Carbohydrates Diet provides for energy/protein needs (1, 977 Kcal/86 g) during LOS; additionally, Dietary Supplements will compensate for possible Poor PO intake of meals with 660 Kcal and 30 g of protein. Current % PO Good (75-100%) Minimum of two criteria No #1 Nutrition Diagnosis Inadequate oral intake Comments: Pt's PO intake of meals has been Good (75-100%), according to ADL notes. Diagnosis Progress(for reassessment Resolved documentation) Nutrition Intervention Change Diet Order: Continue Cardiac/Consistent Carbohydrates Diet Add Supplement/Snack (indicate name/kcal Continue 8 fl oz Glucerna; TID /protein ) . Provides kCal: 660 Provides Protein (gm) 30 Goal #1 Compensate, through dietary supplementation, for possible poor or insufficient PO intake of meals during LOS. Goal #2 Maintain body weight within +/ -3% of admission body weight during LOS. Follow-Up By: 10/19/21 Additional Comments Continue monitoring food tolerance, %PO intake of meals , and BM.
--- NOTE | 2021-10-14 10:17 | XRay Report ---
CHEST 1 VIEW INDICATION: leukocytosis. COMPARISON: 06/06/2021 FINDINGS: Support devices: None. Heart: Within normal limits. Lungs/Pleura: No acute air space or interstitial disease. Additional findings: None. IMPRESSION: No acute findings. Signer Name: Wally Mijares Jr, MD Signed: 10/14/2021 10:13 AM Workstation Name: [id number]
[2021-10-14] MEDS: HEPARIN 5,000 UNIT/1 ML VIAL SUB-Q SCH ×2 (10:34→21:50)
[2021-10-14 10:51] LABS: Hematocrit 24.6 % (35.5-45.6); Hemoglobin 7.9 gm/dl (11.8-15.2); Mean Corpuscular HGB Conc 32 % (32-34); Mean Corpuscular Volume 91 fl (84-94); Platelet Count 346 K/mm3 (140-440); Red Blood Count 2.69 M/mm3 (3.65-5.03); Red Cell Distribution Width 17.1 % (13.2-15.2)
[2021-10-14 11:23] LABS: Anisocytosis 1+; Band Neutrophils # (Manual) 0.2 K/mm3; Basophils % (Manual) 0 % (0.0-1.8); Platelet Estimate Consistent w Auto; Total Cells Counted 100
[2021-10-14] MEDS: oxyCODONE /ACETAMINOPHEN 5-325MG TAB PO PRN (17:26)
[2021-10-14] MEDS: FAMOTIDINE 20 MG TAB PO SCH (17:31)
[2021-10-14] MEDS: SODIUM CHLORIDE 0.45% 1000 ML 1,000 ML IV SCH (17:58)
[2021-10-15 07:21] LABS: Hematocrit 25.2 % (35.5-45.6); Hemoglobin 8.2 gm/dl (11.8-15.2); Mean Corpuscular HGB Conc 33 % (32-34); Mean Corpuscular Volume 91 fl (84-94); Platelet Count 336 K/mm3 (140-440); Red Blood Count 2.77 M/mm3 (3.65-5.03); Red Cell Distribution Width 16.8 % (13.2-15.2)
[2021-10-15 07:42] LABS: BUN/Creatinine Ratio 21; Blood Urea Nitrogen 23 mg/dL (9-20); Calcium 8.3 mg/dL (8.4-10.2); Hemolysis Index 1
[2021-10-15] MEDS: INSULIN LISPRO 100 UNIT/ML SUB-Q SCH ×4 (07:59→23:34)
[2021-10-15] MEDS: oxyCODONE /ACETAMINOPHEN 5-325MG TAB PO PRN ×2 (08:45→17:30)
[2021-10-15 09:00] LABS: Anisocytosis 1+; Band Neutrophils # (Manual) 0.1 K/mm3; Macrocytosis 1+; Myelocytes # (Manual) 0.1 K/mm3; Platelet Estimate Consistent w Auto; Total Cells Counted 100
[2021-10-15] MEDS: HEPARIN 5,000 UNIT/1 ML VIAL SUB-Q SCH ×2 (10:56→22:05)
[2021-10-15] MEDS: FAMOTIDINE 20 MG TAB PO SCH (10:56)
[2021-10-15] MEDS: SODIUM CHLORIDE 0.45% 1000 ML 1,000 ML IV SCH (11:05)
--- NOTE | 2021-10-15 12:22 | Discharge Summary ---
Providers - Providers Date of Admission: 10/07/21 15:47 Date of discharge: 10/15/21 Attending physician: LELO PRITCHARD 10/08/21 02:17 Physical Therapy Evaluation and Treat [CONS] Routine Comment: Reason For Exam: Severe Debility 10/08/21 08:31 Consult to Case Management [CONS] Routine Services Needed at Discharge: Home Health Services Wafer Cutter Notified:: SUBSTATION OPERATOR HELPER GENERATION Comment:: personal skilled nursing/SNF placement Primary care physician: PROGRAMMING ENGINEER Hospitalization Reason for admission: Dehydration Condition: Stable Hospital course: 61-year-old male with past medical history of CVA, diabetes mellitus type 2 and TBI who presented through the emergency department with generalized weakness and poor p.o. intake for 1 week. Patient was admitted with diagnosis of acute renal failure secondary to acute kidney injury from vasomotor nephropathy/dehydration and hyponatremia. On admission patient was noted to have a sodium of 153, BUN sixty-three and creatinine 2.0. The patient received IV fluid hydration with improvement on kidney function and sodium back to normal ranges at the time of discharge. Case management discussed with the caregiver possibility of patient discharging to SNF. SNF arrangements were made. Dedicated discharge time 32 minutes Disposition: 03 LONGTERM FACILITY Final Discharge Diagnosis (Prints w/discharge instructions): Hyponatremia, acute kidney injury, hypertension, history of CVA, protein calorie malnutrition, diabetes mellitus type 2, Core Measure Documentation - Palliative Care Palliative Care/ Comfort Measures: Not Applicable - Core Measures Any of the following diagnoses?: none Exam - Constitutional Vitals: Temp Pulse Resp BP Pulse Ox 98.3 F 87 20 143/85 95 10/15/21 07:57 10/15/21 07:57 10/15/21 07:57 10/15/21 07:57 10/15/21 07:57 General appearance: Present: no acute distress, well-nourished - EENT Eyes: Present: PERRL ENT: hearing intact, clear oral mucosa - Neck Neck: Present: supple, normal ROM - Respiratory Respiratory effort: normal Respiratory: bilateral: CTA - Cardiovascular Heart Sounds: Present: S1 & S2. Absent: rub, click - Extremities Extremities: pulses symmetrical, No edema Peripheral Pulses: within normal limits - Abdominal General gastrointestinal: Present: soft, non-tender, non-distended, normal bowel sounds Male genitourinary: Present: normal - Integumentary Integumentary: Present: clear, warm, dry - Musculoskeletal Musculoskeletal: gait normal, strength equal bilaterally - Psychiatric Psychiatric: appropriate mood/affect, intact judgment & insight - Neurologic Neurologic: CNII-XII intact, moves all extremities Plan Activity: advance as tolerated Weight Bearing Status: Weight Bear as Tolerated Diet: diabetic Follow up with: PRIMARY CARE, [Primary Care Provider] - 7 Days Prescriptions: Buspirone HCl [busPIRone] 15 mg PO QDAY #30 Citalopram [Celexa] 20 mg PO QDAY #30 Duloxetine HCl [Cymbalta] 40 mg PO QDAY #[address] [Depakote Dr] 250 mg PO QDAY #30 Lispro Insulin [HumaLOG] 5 unit SQ BID #1 vial Insulin Detemir [Levemir Flextouch] 20 unit SQ HS #1 vial lisinopriL [Lisinopril] 10 mg PO QDAY #30 Memantine 10 mg PO QDAY #30 Famotidine [Pepcid] 20 mg PO BID #60
[2021-10-16] MEDS: SODIUM CHLORIDE 0.45% 1000 ML 1,000 ML IV SCH ×2 (02:34→15:35)
--- NOTE | 2021-10-16 09:24 | Progress Note ---
Assessment and Plan Assessment and plan: Hypernatremia Hypertension Acute kidney injury History of CVA Protein calorie malnutrition Diabetes mellitus type 2 Leukocytosis 10/14/2021. Follow-up CBC and chest x-ray for leukocytosis. Continue Accu-Cheks and sliding scale insulin. Follow-up BMP for hypernatremia. 10/15/2021. Hypernatremia and acute kidney injury have resolved. Patient awaiting for placement at SNF. Case management reports patient is waiting on authorization 10/16/2021. COVID positive. No symptomatology. Pt. unable to d/c to SNF History Interval history: No new issues overnight. Hospitalist Physical - Constitutional Vitals: Temp Pulse Resp BP Pulse Ox 98.2 F 89 18 143/76 95 10/16/21 07:34 10/16/21 07:34 10/16/21 07:34 10/16/21 07:34 10/16/21 07:54 General appearance: Present: no acute distress, well-nourished - EENT Eyes: Present: PERRL, EOM intact ENT: hearing intact, clear oral mucosa, dentition normal - Neck Neck: Present: supple, normal ROM - Respiratory Respiratory effort: normal Respiratory: bilateral: CTA - Cardiovascular Rhythm: regular Heart Sounds: Present: S1 & S2. Absent: gallop, rub - Extremities Extremities: no ischemia, No edema, Full ROM - Abdominal General gastrointestinal: soft, non-tender, non-distended, normal bowel sounds - Integumentary Integumentary: Present: clear, warm, dry - Neurologic Neurologic: CNII-XII intact, moves all extremities Results - Labs CBC & Chem 7: 10/15/21 06:30 10/15/21 06:30 Labs: Laboratory Last Values WBC 8.9 K/mm3 (4.5-11.0) 10/15/21 06:30 RBC 2.77 M/mm3 (3.65-5.03) L 10/15/21 06:30 Hgb 8.2 gm/dl (11.8-15.2) L 10/15/21 06:30 Hct 25.2 % (35.5-45.6) L 10/15/21 06:30 MCV 91 fl (84-94) 10/15/21 06:30 MCH 30 pg (28-32) 10/15/21 06:30 MCHC 33 % (32-34) 10/15/21 06:30 RDW 16.8 % (13.2-15.2) H 10/15/21 06:30 Plt Count 336 K/mm3 (140-440) 10/15/21 06:30 Add Manual Diff Complete 10/15/21 06:30 Total Counted 100 10/15/21 06:30 Seg Neuts % (Manual) 62.0 % (40.0-70.0) 10/15/21 06:30 Band Neutrophils % 1.0 % 10/15/21 06:30 Lymphocytes % (Manual) 19.0 % (13.4-35.0) 10/15/21 06:30 Reactive Lymphs % (Man) 0 % 10/15/21 06:30 Monocytes % (Manual) 11.0 % (0.0-7.3) H 10/15/21 06:30 Eosinophils % (Manual) 5.0 % (0.0-4.3) H 10/15/21 06:30 Basophils % (Manual) 1.0 % (0.0-1.8) 10/15/21 06:30 Metamyelocytes % 0 % 10/15/21 06:30 Myelocytes % 1.0 % 10/15/21 06:30 Promyelocytes % 0 % 10/15/21 06:30 Blast Cells % 0 % 10/15/21 06:30 Nucleated RBC % Not Reportable 10/15/21 06:30 Seg Neutrophils # Man 5.5 K/mm3 (1.8-7.7) 10/15/21 06:30 Band Neutrophils # 0.1 K/mm3 10/15/21 06:30 Lymphocytes # (Manual) 1.7 K/mm3 (1.2-5.4) 10/15/21 06:30 Abs React Lymphs (Man) 0.0 K/mm3 10/15/21 06:30 Monocytes # (Manual) 1.0 K/mm3 (0.0-0.8) H 10/15/21 06:30 Eosinophils # (Manual) 0.4 K/mm3 (0.0-0.4) 10/15/21 06:30 Basophils # (Manual) 0.1 K/mm3 (0.0-0.1) 10/15/21 06:30 Metamyelocytes # 0.0 K/mm3 10/15/21 06:30 Myelocytes # 0.1 K/mm3 10/15/21 06:30 Promyelocytes # 0.0 K/mm3 10/15/21 06:30 Blast Cells # 0.0 K/mm3 10/15/21 06:30 WBC Morphology Not Reportable 10/15/21 06:30 Hypersegmented Neuts Not Reportable 10/15/21 06:30 Hyposegmented Neuts Not Reportable 10/15/21 06:30 Hypogranular Neuts Not Reportable 10/15/21 06:30 Smudge Cells Not Reportable 10/15/21 06:30 Toxic Granulation Not Reportable 10/15/21 06:30 Toxic Vacuolation Not Reportable 10/15/21 06:30 Dohle Bodies Not Reportable 10/15/21 06:30 Pelger-Huet Anomaly Not Reportable 10/15/21 06:30 Robert Rods Not Reportable 10/15/21 06:30 Platelet Estimate Consistent w auto 10/15/21 06:30 Clumped Platelets Not Reportable 10/15/21 06:30 Plt Clumps, EDTA Not Reportable 10/15/21 06:30 Large Platelets Not Reportable 10/15/21 06:30 Giant Platelets Not Reportable 10/15/21 06:30 Platelet Satelliting Not Reportable 10/15/21 06:30 Plt Morphology Comment Not Reportable 10/15/21 06:30 RBC Morphology Not Reportable 10/15/21 06:30 Dimorphic RBCs Not Reportable 10/15/21 06:30 Polychromasia Not Reportable 10/15/21 06:30 Hypochromasia Not Reportable 10/15/21 06:30 Poikilocytosis Not Reportable 10/15/21 06:30 Anisocytosis 1+ 10/15/21 06:30 Microcytosis Not Reportable 10/15/21 06:30 Macrocytosis 1+ 10/15/21 06:30 Spherocytes Not Reportable 10/15/21 06:30 Pappenheimer Bodies Not Reportable 10/15/21 06:30 Sickle Cells Not Reportable 10/15/21 06:30 Target Cells Not Reportable 10/15/21 06:30 Tear Drop Cells Not Reportable 10/15/21 06:30 Ovalocytes Not Reportable 10/15/21 06:30 Helmet Cells Not Reportable 10/15/21 06:30 Benavidez-[place] Bodies Not Reportable 10/15/21 06:30 [place] Rings Not Reportable 10/15/21 06:30 [place] Cells Not Reportable 10/15/21 06:30 Bite Cells Not Reportable 10/15/21 06:30 Crenated Cell Not Reportable 10/15/21 06:30 Elliptocytes Not Reportable 10/15/21 06:30 Acanthocytes (Spur) Not Reportable 10/15/21 06:30 Rouleaux Not Reportable 10/15/21 06:30 Hemoglobin C Crystals Not Reportable 10/15/21 06:30 Schistocytes Not Reportable 10/15/21 06:30 Malaria parasites Not Reportable 10/15/21 06:30 Johnny Bodies Not Reportable 10/15/21 06:30 Hem Pathologist Commnt No 10/15/21 06:30 Sodium 142 mmol/L (137-145) 10/15/21 06:30 Potassium 5.0 mmol/L (3.6-5.0) 10/15/21 06:30 Chloride 109.4 mmol/L (98-107) H 10/15/21 06:30 Carbon Dioxide 25 mmol/L (22-30) 10/15/21 06:30 Anion Gap 13 mmol/L 10/15/21 06:30 BUN 23 mg/dL (9-20) H 10/15/21 06:30 Creatinine 1.1 mg/dL (0.8-1.3) 10/15/21 06:30 Estimated GFR > 60 ml/min 10/15/21 06:30 BUN/Creatinine Ratio 21 % 10/15/21 06:30 Glucose 152 mg/dL (75-100) H 10/15/21 06:30 POC Glucose 110 mg/dL (70-105) H 10/16/21 07:32 Hemoglobin A1c 5.9 % (4-6) 10/09/21 04:28 Calcium 8.3 mg/dL (8.4-10.2) L 10/15/21 06:30 Total Bilirubin 0.20 mg/dL (0.1-1.2) 10/11/21 04:32 AST 23 units/L (5-40) 10/11/21 04:32 ALT 33 units/L (7-56) 10/11/21 04:32 Alkaline Phosphatase 324 units/L (35-129) H 10/11/21 04:32 Total Protein 5.1 g/dL (6.3-8.2) L 10/11/21 04:32 Albumin 2.2 g/dL (3.9-5) L 10/11/21 04:32 Albumin/Globulin Ratio 0.8 % 10/11/21 04:32 Coronavirus (PCR) Negative (Negative) 10/13/21 Unknown Villalta/IV: Voiding Method Indwelling Catheter Active Medications - Current Medications Current Medications: Generic Name Dose Route Start Last Admin Trade Name Freq PRN Reason Stop Dose Admin Acetaminophen 650 mg 10/08/21 02:13 10/11/21 13:26 Acetaminophen 325 Mg Tab PO 650 mg Q4H PRN Administration Pain MILD(1-3)/Fever >100.5/HARO Famotidine 20 mg 10/11/21 10:00 10/15/21 10:56 Famotidine 20 Mg Tab PO 20 mg QAM ROYER Administration Heparin Sodium (Porcine) 5,000 unit 10/08/21 10:00 10/15/21 22:05 Heparin 5,000 Unit/1 Ml Vial SUB-Q 5,000 unit Q12HR ROYER Administration Sodium Chloride 1,000 mls @ 125 mls/hr 10/08/21 03:00 10/16/21 02:34 Nacl 0.45% 1000 Ml IV 125 mls/hr DIRECT ROYER Administration Insulin Human Lispro 0 unit 10/08/21 11:30 10/15/21 23:34 Insulin Lispro 100 Unit/Ml SUB-Q 3 unit ACHS ROYER Administration Protocol Lorazepam 2 mg 10/08/21 15:48 10/08/21 15:00 Lorazepam 2 Mg/Ml Vial IV 2 mg Q3H PRN Administration Agitation Ondansetron HCl 4 mg 10/08/21 02:13 Ondansetron 4 Mg/2 Ml Inj IV Q8H PRN Nausea And Vomiting Oxycodone/Acetaminophen 1 tab 10/08/21 02:13 10/15/21 17:30 Oxycodone /Acetaminophen 5-325mg Tab PO 1 tab Q6H PRN Administration Pain, Moderate (4-6) Sodium Chloride 10 ml 10/08/21 10:00 10/15/21 22:06 Sodium Chloride 0.9% 10 Ml Flush Syringe IV 10 ml BID ROYER Administration Sodium Chloride 10 ml 10/08/21 02:13 Sodium Chloride 0.9% 10 Ml Flush Syringe IV PRN PRN LINE FLUSH Nutrition/Malnutrition Assess - Dietary Evaluation Nutrition/Malnutrition Findings: Nutrition Notes Start: 10/08/21 09:33 Freq: Status: Active Protocol: Document 10/12/21 15:25 ROGERIO (Rec: 10/12/21 15:38 ROGERIO [id number]) Nutrition Notes Initial or Follow up Brief Note Current Diet Cardiac/Consistent Carbohydrates Diet (since D ), D Suppl (D 10/09). Height 5 ft 7 in Weight 85.3 kg [place] Body Weight (kg) 67.27 BMI 29.4 Weight change and time frame 3.1 Kg body weight gained iin 3 days reported. Subjective/Other Information RD consult for routine F/U on dietary intake assessment. Pt's PO intake of meals has been Good (75-100%), according to ADL notes. Pt ready to be discharged to SNF. Percent of energy/protein needs met: Prescribed Cardiac/Consistent Carbohydrates Diet provides for energy/protein needs (1, 977 Kcal/86 g) during LOS; additionally, Dietary Supplements will compensate for possible Poor PO intake of meals with 660 Kcal and 30 g of protein. Current % PO Good (75-100%) Minimum of two criteria No #1 Nutrition Diagnosis Inadequate oral intake Comments: Pt's PO intake of meals has been Good (75-100%), according to ADL notes. Diagnosis Progress(for reassessment Resolved documentation) Nutrition Intervention Change Diet Order: Continue Cardiac/Consistent Carbohydrates Diet Add Supplement/Snack (indicate name/kcal Continue 8 fl oz Glucerna; TID /protein ) . Provides kCal: 660 Provides Protein (gm) 30 Goal #1 Compensate, through dietary supplementation, for possible poor or insufficient PO intake of meals during LOS. Goal #2 Maintain body weight within +/ -3% of admission body weight during LOS. Follow-Up By: 10/19/21 Additional Comments Continue monitoring food tolerance, %PO intake of meals , and BM.
[2021-10-16] MEDS: INSULIN LISPRO 100 UNIT/ML SUB-Q SCH ×4 (09:42→23:09)
[2021-10-16] MEDS: HEPARIN 5,000 UNIT/1 ML VIAL SUB-Q SCH ×2 (09:44→22:12)
[2021-10-16] MEDS: FAMOTIDINE 20 MG TAB PO SCH (09:44)
[2021-10-16] MEDS: oxyCODONE /ACETAMINOPHEN 5-325MG TAB PO PRN (22:12)
[2021-10-17] MEDS: SODIUM CHLORIDE 0.45% 1000 ML 1,000 ML IV SCH (04:51)
[2021-10-17] MEDS: INSULIN LISPRO 100 UNIT/ML SUB-Q SCH ×4 (10:31→23:15)
[2021-10-17] MEDS: HEPARIN 5,000 UNIT/1 ML VIAL SUB-Q SCH ×2 (10:31→23:09)
[2021-10-17] MEDS: FAMOTIDINE 20 MG TAB PO SCH (10:32)
--- NOTE | 2021-10-17 11:48 | Progress Note ---
Assessment and Plan Assessment and plan: Hypernatremia Hypertension COVID-19 pneumonia Acute kidney injury History of CVA Protein calorie malnutrition Diabetes mellitus type 2 Leukocytosis 10/14/2021. Follow-up CBC and chest x-ray for leukocytosis. Continue Accu-Cheks and sliding scale insulin. Follow-up BMP for hypernatremia. 10/15/2021. Hypernatremia and acute kidney injury have resolved. Patient awaiting for placement at SNF. Case management reports patient is waiting on authorization 10/16/2021. COVID positive. No symptomatology. Pt. unable to d/c to SNF 10/17/2021. Patient was planned for discharge to [facility] senior living but unable to be accepted because COVID screening was positive. Patient is asymptomatic with no hypoxia. Await SNF placement History Interval history: No new issues overnight. Hospitalist Physical - Constitutional Vitals: Temp Pulse Resp BP Pulse Ox 97.6 F 88 18 117/70 95 10/17/21 07:48 10/17/21 07:48 10/17/21 07:48 10/17/21 07:48 10/17/21 07:48 General appearance: Present: no acute distress, well-nourished - EENT Eyes: Present: PERRL, EOM intact ENT: hearing intact, clear oral mucosa, dentition normal - Neck Neck: Present: supple, normal ROM - Respiratory Respiratory effort: normal Respiratory: bilateral: CTA - Cardiovascular Rhythm: regular Heart Sounds: Present: S1 & S2. Absent: gallop, rub - Extremities Extremities: no ischemia, No edema, Full ROM - Abdominal General gastrointestinal: soft, non-tender, non-distended, normal bowel sounds - Integumentary Integumentary: Present: clear, warm, dry - Neurologic Neurologic: CNII-XII intact, moves all extremities Results - Labs CBC & Chem 7: 10/15/21 06:30 10/15/21 06:30 Labs: Laboratory Last Values WBC 8.9 K/mm3 (4.5-11.0) 10/15/21 06:30 RBC 2.77 M/mm3 (3.65-5.03) L 10/15/21 06:30 Hgb 8.2 gm/dl (11.8-15.2) L 10/15/21 06:30 Hct 25.2 % (35.5-45.6) L 10/15/21 06:30 MCV 91 fl (84-94) 10/15/21 06:30 MCH 30 pg (28-32) 10/15/21 06:30 MCHC 33 % (32-34) 10/15/21 06:30 RDW 16.8 % (13.2-15.2) H 10/15/21 06:30 Plt Count 336 K/mm3 (140-440) 10/15/21 06:30 Add Manual Diff Complete 10/15/21 06:30 Total Counted 100 10/15/21 06:30 Seg Neuts % (Manual) 62.0 % (40.0-70.0) 10/15/21 06:30 Band Neutrophils % 1.0 % 10/15/21 06:30 Lymphocytes % (Manual) 19.0 % (13.4-35.0) 10/15/21 06:30 Reactive Lymphs % (Man) 0 % 10/15/21 06:30 Monocytes % (Manual) 11.0 % (0.0-7.3) H 10/15/21 06:30 Eosinophils % (Manual) 5.0 % (0.0-4.3) H 10/15/21 06:30 Basophils % (Manual) 1.0 % (0.0-1.8) 10/15/21 06:30 Metamyelocytes % 0 % 10/15/21 06:30 Myelocytes % 1.0 % 10/15/21 06:30 Promyelocytes % 0 % 10/15/21 06:30 Blast Cells % 0 % 10/15/21 06:30 Nucleated RBC % Not Reportable 10/15/21 06:30 Seg Neutrophils # Man 5.5 K/mm3 (1.8-7.7) 10/15/21 06:30 Band Neutrophils # 0.1 K/mm3 10/15/21 06:30 Lymphocytes # (Manual) 1.7 K/mm3 (1.2-5.4) 10/15/21 06:30 Abs React Lymphs (Man) 0.0 K/mm3 10/15/21 06:30 Monocytes # (Manual) 1.0 K/mm3 (0.0-0.8) H 10/15/21 06:30 Eosinophils # (Manual) 0.4 K/mm3 (0.0-0.4) 10/15/21 06:30 Basophils # (Manual) 0.1 K/mm3 (0.0-0.1) 10/15/21 06:30 Metamyelocytes # 0.0 K/mm3 10/15/21 06:30 Myelocytes # 0.1 K/mm3 10/15/21 06:30 Promyelocytes # 0.0 K/mm3 10/15/21 06:30 Blast Cells # 0.0 K/mm3 10/15/21 06:30 WBC Morphology Not Reportable 10/15/21 06:30 Hypersegmented Neuts Not Reportable 10/15/21 06:30 Hyposegmented Neuts Not Reportable 10/15/21 06:30 Hypogranular Neuts Not Reportable 10/15/21 06:30 Smudge Cells Not Reportable 10/15/21 06:30 Toxic Granulation Not Reportable 10/15/21 06:30 Toxic Vacuolation Not Reportable 10/15/21 06:30 Dohle Bodies Not Reportable 10/15/21 06:30 Pelger-Huet Anomaly Not Reportable 10/15/21 06:30 Robert Rods Not Reportable 10/15/21 06:30 Platelet Estimate Consistent w auto 10/15/21 06:30 Clumped Platelets Not Reportable 10/15/21 06:30 Plt Clumps, EDTA Not Reportable 10/15/21 06:30 Large Platelets Not Reportable 10/15/21 06:30 Giant Platelets Not Reportable 10/15/21 06:30 Platelet Satelliting Not Reportable 10/15/21 06:30 Plt Morphology Comment Not Reportable 10/15/21 06:30 RBC Morphology Not Reportable 10/15/21 06:30 Dimorphic RBCs Not Reportable 10/15/21 06:30 Polychromasia Not Reportable 10/15/21 06:30 Hypochromasia Not Reportable 10/15/21 06:30 Poikilocytosis Not Reportable 10/15/21 06:30 Anisocytosis 1+ 10/15/21 06:30 Microcytosis Not Reportable 10/15/21 06:30 Macrocytosis 1+ 10/15/21 06:30 Spherocytes Not Reportable 10/15/21 06:30 Pappenheimer Bodies Not Reportable 10/15/21 06:30 Sickle Cells Not Reportable 10/15/21 06:30 Target Cells Not Reportable 10/15/21 06:30 Tear Drop Cells Not Reportable 10/15/21 06:30 Ovalocytes Not Reportable 10/15/21 06:30 Helmet Cells Not Reportable 10/15/21 06:30 Benavidez-[place] Bodies Not Reportable 10/15/21 06:30 [place] Rings Not Reportable 10/15/21 06:30 [place] Cells Not Reportable 10/15/21 06:30 Bite Cells Not Reportable 10/15/21 06:30 Crenated Cell Not Reportable 10/15/21 06:30 Elliptocytes Not Reportable 10/15/21 06:30 Acanthocytes (Spur) Not Reportable 10/15/21 06:30 Rouleaux Not Reportable 10/15/21 06:30 Hemoglobin C Crystals Not Reportable 10/15/21 06:30 Schistocytes Not Reportable 10/15/21 06:30 Malaria parasites Not Reportable 10/15/21 06:30 Johnny Bodies Not Reportable 10/15/21 06:30 Hem Pathologist Commnt No 10/15/21 06:30 Sodium 142 mmol/L (137-145) 10/15/21 06:30 Potassium 5.0 mmol/L (3.6-5.0) 10/15/21 06:30 Chloride 109.4 mmol/L (98-107) H 10/15/21 06:30 Carbon Dioxide 25 mmol/L (22-30) 10/15/21 06:30 Anion Gap 13 mmol/L 10/15/21 06:30 BUN 23 mg/dL (9-20) H 10/15/21 06:30 Creatinine 1.1 mg/dL (0.8-1.3) 10/15/21 06:30 Estimated GFR > 60 ml/min 10/15/21 06:30 BUN/Creatinine Ratio 21 % 10/15/21 06:30 Glucose 152 mg/dL (75-100) H 10/15/21 06:30 POC Glucose 169 mg/dL (70-105) H 10/17/21 11:09 Hemoglobin A1c 5.9 % (4-6) 10/09/21 04:28 Calcium 8.3 mg/dL (8.4-10.2) L 10/15/21 06:30 Total Bilirubin 0.20 mg/dL (0.1-1.2) 10/11/21 04:32 AST 23 units/L (5-40) 10/11/21 04:32 ALT 33 units/L (7-56) 10/11/21 04:32 Alkaline Phosphatase 324 units/L (35-129) H 10/11/21 04:32 Total Protein 5.1 g/dL (6.3-8.2) L 10/11/21 04:32 Albumin 2.2 g/dL (3.9-5) L 10/11/21 04:32 Albumin/Globulin Ratio 0.8 % 10/11/21 04:32 Coronavirus (PCR) Positive (Negative) A 10/16/21 Unknown Villalta/IV: Voiding Method Incontinent Active Medications - Current Medications Current Medications: Generic Name Dose Route Start Last Admin Trade Name Freq PRN Reason Stop Dose Admin Acetaminophen 650 mg 10/08/21 02:13 10/11/21 13:26 Acetaminophen 325 Mg Tab PO 650 mg Q4H PRN Administration Pain MILD(1-3)/Fever >100.5/HARO Famotidine 20 mg 10/11/21 10:00 10/17/21 10:32 Famotidine 20 Mg Tab PO 20 mg QAM ROYER Administration Heparin Sodium (Porcine) 5,000 unit 10/08/21 10:00 10/17/21 10:31 Heparin 5,000 Unit/1 Ml Vial SUB-Q 5,000 unit Q12HR ROYER Administration Sodium Chloride 1,000 mls @ 125 mls/hr 10/08/21 03:00 10/17/21 04:51 Nacl 0.45% 1000 Ml IV 125 mls/hr DIRECT ROYER Administration Insulin Human Lispro 0 unit 10/08/21 11:30 10/17/21 10:31 Insulin Lispro 100 Unit/Ml SUB-Q 3 unit ACHS ROYER Administration Protocol Lorazepam 2 mg 10/08/21 15:48 10/08/21 15:00 Lorazepam 2 Mg/Ml Vial IV 2 mg Q3H PRN Administration Agitation Ondansetron HCl 4 mg 10/08/21 02:13 Ondansetron 4 Mg/2 Ml Inj IV Q8H PRN Nausea And Vomiting Oxycodone/Acetaminophen 1 tab 10/08/21 02:13 10/16/21 22:12 Oxycodone /Acetaminophen 5-325mg Tab PO 1 tab Q6H PRN Administration Pain, Moderate (4-6) Sodium Chloride 10 ml 10/08/21 10:00 10/17/21 10:31 Sodium Chloride 0.9% 10 Ml Flush Syringe IV 10 ml BID ROYER Administration Sodium Chloride 10 ml 10/08/21 02:13 Sodium Chloride 0.9% 10 Ml Flush Syringe IV PRN PRN LINE FLUSH Nutrition/Malnutrition Assess - Dietary Evaluation Nutrition/Malnutrition Findings: Nutrition Notes Start: 10/08/21 09:33 Freq: Status: Active Protocol: Document 10/12/21 15:25 ROGERIO (Rec: 10/12/21 15:38 ROGERIO [id number]) Nutrition Notes Initial or Follow up Brief Note Current Diet Cardiac/Consistent Carbohydrates Diet (since D ), D Suppl (D 10/09). Height 5 ft 7 in Weight 85.3 kg [place] Body Weight (kg) 67.27 BMI 29.4 Weight change and time frame 3.1 Kg body weight gained iin 3 days reported. Subjective/Other Information RD consult for routine F/U on dietary intake assessment. Pt's PO intake of meals has been Good (75-100%), according to ADL notes. Pt ready to be discharged to SNF. Percent of energy/protein needs met: Prescribed Cardiac/Consistent Carbohydrates Diet provides for energy/protein needs (1, 977 Kcal/86 g) during LOS; additionally, Dietary Supplements will compensate for possible Poor PO intake of meals with 660 Kcal and 30 g of protein. Current % PO Good (75-100%) Minimum of two criteria No #1 Nutrition Diagnosis Inadequate oral intake Comments: Pt's PO intake of meals has been Good (75-100%), according to ADL notes. Diagnosis Progress(for reassessment Resolved documentation) Nutrition Intervention Change Diet Order: Continue Cardiac/Consistent Carbohydrates Diet Add Supplement/Snack (indicate name/kcal Continue 8 fl oz Glucerna; TID /protein ) . Provides kCal: 660 Provides Protein (gm) 30 Goal #1 Compensate, through dietary supplementation, for possible poor or insufficient PO intake of meals during LOS. Goal #2 Maintain body weight within +/ -3% of admission body weight during LOS. Follow-Up By: 10/19/21 Additional Comments Continue monitoring food tolerance, %PO intake of meals , and BM.
[2021-10-18] MEDS: INSULIN LISPRO 100 UNIT/ML SUB-Q SCH ×4 (07:30→22:24)
--- NOTE | 2021-10-18 08:29 | Progress Note ---
Assessment and Plan Assessment and plan: Hypernatremia Hypertension COVID-19 pneumonia Acute kidney injury History of CVA Protein calorie malnutrition Diabetes mellitus type 2 Leukocytosis 10/14/2021. Follow-up CBC and chest x-ray for leukocytosis. Continue Accu-Cheks and sliding scale insulin. Follow-up BMP for hypernatremia. 10/15/2021. Hypernatremia and acute kidney injury have resolved. Patient awaiting for placement at SNF. Case management reports patient is waiting on authorization 10/16/2021. COVID positive. No symptomatology. Pt. unable to d/c to SNF 10/17/2021. Patient was planned for discharge to [facility] but unable to be accepted because COVID screening was positive. Patient is asymptomatic with no hypoxia. Await SNF placement 10/18/2021. Awaiting a SNF that will accept COVID patients or awaiting for negative COVID test to be accepted back to [facility]. Patient is asymptomatic and not hypoxic. Continue supportive care History Interval history: No new issues overnight. Hospitalist Physical - Constitutional Vitals: Temp Pulse Resp BP Pulse Ox 98.1 F 93 H 18 113/70 96 10/18/21 05:47 10/18/21 05:47 10/18/21 05:47 10/18/21 05:47 10/18/21 05:47 General appearance: Present: no acute distress, well-nourished - EENT Eyes: Present: PERRL, EOM intact ENT: hearing intact, clear oral mucosa, dentition normal - Neck Neck: Present: supple, normal ROM - Respiratory Respiratory effort: normal Respiratory: bilateral: CTA - Cardiovascular Rhythm: regular Heart Sounds: Present: S1 & S2. Absent: gallop, rub - Extremities Extremities: no ischemia, No edema, Full ROM - Abdominal General gastrointestinal: soft, non-tender, non-distended, normal bowel sounds - Integumentary Integumentary: Present: clear, warm, dry - Neurologic Neurologic: CNII-XII intact, moves all extremities Results - Labs CBC & Chem 7: 10/15/21 06:30 10/15/21 06:30 Labs: Laboratory Last Values WBC 8.9 K/mm3 (4.5-11.0) 10/15/21 06:30 RBC 2.77 M/mm3 (3.65-5.03) L 10/15/21 06:30 Hgb 8.2 gm/dl (11.8-15.2) L 10/15/21 06:30 Hct 25.2 % (35.5-45.6) L 10/15/21 06:30 MCV 91 fl (84-94) 10/15/21 06:30 MCH 30 pg (28-32) 10/15/21 06:30 MCHC 33 % (32-34) 10/15/21 06:30 RDW 16.8 % (13.2-15.2) H 10/15/21 06:30 Plt Count 336 K/mm3 (140-440) 10/15/21 06:30 Add Manual Diff Complete 10/15/21 06:30 Total Counted 100 10/15/21 06:30 Seg Neuts % (Manual) 62.0 % (40.0-70.0) 10/15/21 06:30 Band Neutrophils % 1.0 % 10/15/21 06:30 Lymphocytes % (Manual) 19.0 % (13.4-35.0) 10/15/21 06:30 Reactive Lymphs % (Man) 0 % 10/15/21 06:30 Monocytes % (Manual) 11.0 % (0.0-7.3) H 10/15/21 06:30 Eosinophils % (Manual) 5.0 % (0.0-4.3) H 10/15/21 06:30 Basophils % (Manual) 1.0 % (0.0-1.8) 10/15/21 06:30 Metamyelocytes % 0 % 10/15/21 06:30 Myelocytes % 1.0 % 10/15/21 06:30 Promyelocytes % 0 % 10/15/21 06:30 Blast Cells % 0 % 10/15/21 06:30 Nucleated RBC % Not Reportable 10/15/21 06:30 Seg Neutrophils # Man 5.5 K/mm3 (1.8-7.7) 10/15/21 06:30 Band Neutrophils # 0.1 K/mm3 10/15/21 06:30 Lymphocytes # (Manual) 1.7 K/mm3 (1.2-5.4) 10/15/21 06:30 Abs React Lymphs (Man) 0.0 K/mm3 10/15/21 06:30 Monocytes # (Manual) 1.0 K/mm3 (0.0-0.8) H 10/15/21 06:30 Eosinophils # (Manual) 0.4 K/mm3 (0.0-0.4) 10/15/21 06:30 Basophils # (Manual) 0.1 K/mm3 (0.0-0.1) 10/15/21 06:30 Metamyelocytes # 0.0 K/mm3 10/15/21 06:30 Myelocytes # 0.1 K/mm3 10/15/21 06:30 Promyelocytes # 0.0 K/mm3 10/15/21 06:30 Blast Cells # 0.0 K/mm3 10/15/21 06:30 WBC Morphology Not Reportable 10/15/21 06:30 Hypersegmented Neuts Not Reportable 10/15/21 06:30 Hyposegmented Neuts Not Reportable 10/15/21 06:30 Hypogranular Neuts Not Reportable 10/15/21 06:30 Smudge Cells Not Reportable 10/15/21 06:30 Toxic Granulation Not Reportable 10/15/21 06:30 Toxic Vacuolation Not Reportable 10/15/21 06:30 Dohle Bodies Not Reportable 10/15/21 06:30 Pelger-Huet Anomaly Not Reportable 10/15/21 06:30 Robert Rods Not Reportable 10/15/21 06:30 Platelet Estimate Consistent w auto 10/15/21 06:30 Clumped Platelets Not Reportable 10/15/21 06:30 Plt Clumps, EDTA Not Reportable 10/15/21 06:30 Large Platelets Not Reportable 10/15/21 06:30 Giant Platelets Not Reportable 10/15/21 06:30 Platelet Satelliting Not Reportable 10/15/21 06:30 Plt Morphology Comment Not Reportable 10/15/21 06:30 RBC Morphology Not Reportable 10/15/21 06:30 Dimorphic RBCs Not Reportable 10/15/21 06:30 Polychromasia Not Reportable 10/15/21 06:30 Hypochromasia Not Reportable 10/15/21 06:30 Poikilocytosis Not Reportable 10/15/21 06:30 Anisocytosis 1+ 10/15/21 06:30 Microcytosis Not Reportable 10/15/21 06:30 Macrocytosis 1+ 10/15/21 06:30 Spherocytes Not Reportable 10/15/21 06:30 Pappenheimer Bodies Not Reportable 10/15/21 06:30 Sickle Cells Not Reportable 10/15/21 06:30 Target Cells Not Reportable 10/15/21 06:30 Tear Drop Cells Not Reportable 10/15/21 06:30 Ovalocytes Not Reportable 10/15/21 06:30 Helmet Cells Not Reportable 10/15/21 06:30 Benavidez-[place] Bodies Not Reportable 10/15/21 06:30 [place] Rings Not Reportable 10/15/21 06:30 [place] Cells Not Reportable 10/15/21 06:30 Bite Cells Not Reportable 10/15/21 06:30 Crenated Cell Not Reportable 10/15/21 06:30 Elliptocytes Not Reportable 10/15/21 06:30 Acanthocytes (Spur) Not Reportable 10/15/21 06:30 Rouleaux Not Reportable 10/15/21 06:30 Hemoglobin C Crystals Not Reportable 10/15/21 06:30 Schistocytes Not Reportable 10/15/21 06:30 Malaria parasites Not Reportable 10/15/21 06:30 Johnny Bodies Not Reportable 10/15/21 06:30 Hem Pathologist Commnt No 10/15/21 06:30 Sodium 142 mmol/L (137-145) 10/15/21 06:30 Potassium 5.0 mmol/L (3.6-5.0) 10/15/21 06:30 Chloride 109.4 mmol/L (98-107) H 10/15/21 06:30 Carbon Dioxide 25 mmol/L (22-30) 10/15/21 06:30 Anion Gap 13 mmol/L 10/15/21 06:30 BUN 23 mg/dL (9-20) H 10/15/21 06:30 Creatinine 1.1 mg/dL (0.8-1.3) 10/15/21 06:30 Estimated GFR > 60 ml/min 10/15/21 06:30 BUN/Creatinine Ratio 21 % 10/15/21 06:30 Glucose 152 mg/dL (75-100) H 10/15/21 06:30 POC Glucose 101 mg/dL (70-105) 10/18/21 07:36 Hemoglobin A1c 5.9 % (4-6) 10/09/21 04:28 Calcium 8.3 mg/dL (8.4-10.2) L 10/15/21 06:30 Total Bilirubin 0.20 mg/dL (0.1-1.2) 10/11/21 04:32 AST 23 units/L (5-40) 10/11/21 04:32 ALT 33 units/L (7-56) 10/11/21 04:32 Alkaline Phosphatase 324 units/L (35-129) H 10/11/21 04:32 Total Protein 5.1 g/dL (6.3-8.2) L 10/11/21 04:32 Albumin 2.2 g/dL (3.9-5) L 10/11/21 04:32 Albumin/Globulin Ratio 0.8 % 10/11/21 04:32 Coronavirus (PCR) Positive (Negative) A 10/16/21 Unknown Villalta/IV: Voiding Method Incontinent Active Medications - Current Medications Current Medications: Generic Name Dose Route Start Last Admin Trade Name Freq PRN Reason Stop Dose Admin Acetaminophen 650 mg 10/08/21 02:13 10/11/21 13:26 Acetaminophen 325 Mg Tab PO 650 mg Q4H PRN Administration Pain MILD(1-3)/Fever >100.5/HARO Famotidine 20 mg 10/11/21 10:00 10/17/21 10:32 Famotidine 20 Mg Tab PO 20 mg QAM ROYER Administration Heparin Sodium (Porcine) 5,000 unit 10/08/21 10:00 10/17/21 23:09 Heparin 5,000 Unit/1 Ml Vial SUB-Q 5,000 unit Q12HR ROYER Administration Sodium Chloride 1,000 mls @ 125 mls/hr 10/08/21 03:00 10/17/21 04:51 Nacl 0.45% 1000 Ml IV 125 mls/hr DIRECT ROYER Administration Insulin Human Lispro 0 unit 10/08/21 11:30 10/17/21 23:15 Insulin Lispro 100 Unit/Ml SUB-Q 3 unit ACHS ROYER Administration Protocol Lorazepam 2 mg 10/08/21 15:48 10/08/21 15:00 Lorazepam 2 Mg/Ml Vial IV 2 mg Q3H PRN Administration Agitation Ondansetron HCl 4 mg 10/08/21 02:13 Ondansetron 4 Mg/2 Ml Inj IV Q8H PRN Nausea And Vomiting Oxycodone/Acetaminophen 1 tab 10/08/21 02:13 10/16/21 22:12 Oxycodone /Acetaminophen 5-325mg Tab PO 1 tab Q6H PRN Administration Pain, Moderate (4-6) Sodium Chloride 10 ml 10/08/21 10:00 10/17/21 23:10 Sodium Chloride 0.9% 10 Ml Flush Syringe IV 10 ml BID ROYER Administration Sodium Chloride 10 ml 10/08/21 02:13 Sodium Chloride 0.9% 10 Ml Flush Syringe IV PRN PRN LINE FLUSH Nutrition/Malnutrition Assess - Dietary Evaluation Nutrition/Malnutrition Findings: Nutrition Notes Start: 10/08/21 09:33 Freq: Status: Active Protocol: Document 10/12/21 15:25 ROGERIO (Rec: 10/12/21 15:38 ROGERIO [id number]) Nutrition Notes Initial or Follow up Brief Note Current Diet Cardiac/Consistent Carbohydrates Diet (since D ), D Suppl (D 10/09). Height 5 ft 7 in Weight 85.3 kg [place] Body Weight (kg) 67.27 BMI 29.4 Weight change and time frame 3.1 Kg body weight gained iin 3 days reported. Subjective/Other Information RD consult for routine F/U on dietary intake assessment. Pt's PO intake of meals has been Good (75-100%), according to ADL notes. Pt ready to be discharged to SNF. Percent of energy/protein needs met: Prescribed Cardiac/Consistent Carbohydrates Diet provides for energy/protein needs (1, 977 Kcal/86 g) during LOS; additionally, Dietary Supplements will compensate for possible Poor PO intake of meals with 660 Kcal and 30 g of protein. Current % PO Good (75-100%) Minimum of two criteria No #1 Nutrition Diagnosis Inadequate oral intake Comments: Pt's PO intake of meals has been Good (75-100%), according to ADL notes. Diagnosis Progress(for reassessment Resolved documentation) Nutrition Intervention Change Diet Order: Continue Cardiac/Consistent Carbohydrates Diet Add Supplement/Snack (indicate name/kcal Continue 8 fl oz Glucerna; TID /protein ) . Provides kCal: 660 Provides Protein (gm) 30 Goal #1 Compensate, through dietary supplementation, for possible poor or insufficient PO intake of meals during LOS. Goal #2 Maintain body weight within +/ -3% of admission body weight during LOS. Follow-Up By: 10/19/21 Additional Comments Continue monitoring food tolerance, %PO intake of meals , and BM.
[2021-10-18] MEDS: FAMOTIDINE 20 MG TAB PO SCH (11:33)
[2021-10-18] MEDS: HEPARIN 5,000 UNIT/1 ML VIAL SUB-Q SCH ×2 (11:33→22:24)
[2021-10-19] MEDS: oxyCODONE /ACETAMINOPHEN 5-325MG TAB PO PRN (05:59)
[2021-10-19 07:35] LABS: Basophils # (Auto) 0.1 K/mm3 (0.0-0.1); Basophils % (Auto) 0.9 % (0.0-1.8); Eosinophils # (Auto) 0.4 K/mm3 (0.0-0.4); Eosinophils % (Auto) 2.7 % (0.0-4.3); Hematocrit 24.8 % (35.5-45.6); Hemoglobin 8.1 gm/dl (11.8-15.2); Lymphocytes # (Auto) 1.1 K/mm3 (1.2-5.4); Lymphocytes % (Auto) 8.4 % (13.4-35.0); Mean Corpuscular HGB Conc 33 % (32-34); Mean Corpuscular Volume 93 fl (84-94); Monocytes # (Auto) 1.3 K/mm3 (0.0-0.8); Monocytes % (Auto) 9.7 % (0.0-7.3); Platelet Count 408 K/mm3 (140-440); Red Blood Count 2.67 M/mm3 (3.65-5.03); Red Cell Distribution Width 17.5 % (13.2-15.2)
[2021-10-19 08:04] LABS: Calcium 8.8 mg/dL (8.4-10.2)
--- NOTE | 2021-10-19 08:13 | Progress Note ---
Assessment and Plan Assessment and plan: Hypernatremia Hypertension COVID-19 pneumonia Acute kidney injury History of CVA Protein calorie malnutrition Diabetes mellitus type 2 Leukocytosis 10/14/2021. Follow-up CBC and chest x-ray for leukocytosis. Continue Accu-Cheks and sliding scale insulin. Follow-up BMP for hypernatremia. 10/15/2021. Hypernatremia and acute kidney injury have resolved. Patient awaiting for placement at SNF. Case management reports patient is waiting on authorization 10/16/2021. COVID positive. No symptomatology. Pt. unable to d/c to SNF 10/17/2021. Patient was planned for discharge to [facility] but unable to be accepted because COVID screening was positive. Patient is asymptomatic with no hypoxia. Await SNF placement 10/18/2021. Awaiting a SNF that will accept COVID patients or awaiting for negative COVID test to be accepted back to [facility]. Patient is asymptomatic and not hypoxic. Continue supportive care 10/19/2021. Awaiting a SNF that will accept COVID patients or awaiting for negative COVID test to be accepted back to [facility]. Patient is asymptomatic and not hypoxic. Continue supportive care History Interval history: No new issues overnight. Hospitalist Physical - Constitutional Vitals: Temp Pulse Resp BP Pulse Ox 97.9 F 100 H 19 135/78 97 10/18/21 22:02 10/18/21 22:02 10/18/21 22:02 10/18/21 22:02 10/18/21 22:02 General appearance: Present: no acute distress, well-nourished - EENT Eyes: Present: PERRL, EOM intact ENT: hearing intact, clear oral mucosa, dentition normal - Neck Neck: Present: supple, normal ROM - Respiratory Respiratory effort: normal Respiratory: bilateral: CTA - Cardiovascular Rhythm: regular Heart Sounds: Present: S1 & S2. Absent: gallop, rub - Extremities Extremities: no ischemia, No edema, Full ROM - Abdominal General gastrointestinal: soft, non-tender, non-distended, normal bowel sounds - Integumentary Integumentary: Present: clear, warm, dry - Neurologic Neurologic: CNII-XII intact, moves all extremities Results - Labs CBC & Chem 7: 10/19/21 07:22 10/19/21 07:22 Labs: Laboratory Last Values WBC 13.6 K/mm3 (4.5-11.0) H 10/19/21 07:22 RBC 2.67 M/mm3 (3.65-5.03) L 10/19/21 07:22 Hgb 8.1 gm/dl (11.8-15.2) L 10/19/21 07:22 Hct 24.8 % (35.5-45.6) L 10/19/21 07:22 MCV 93 fl (84-94) 10/19/21 07:22 MCH 30 pg (28-32) 10/19/21 07: MCHC 33 % (32-34) 10/19/21 07: RDW 17.5 % (13.2-15.2) H 10/19/21 07:22 Plt Count 408 K/mm3 (140-440) 10/19/21 07:22 Lymph % (Auto) 8.4 % (13.4-35.0) L 10/19/21 07:22 [place] % (Auto) 9.7 % (0.0-7.3) H 10/19/21 07:22 Eos % (Auto) 2.7 % (0.0-4.3) 10/19/21 07:22 Baso % (Auto) 0.9 % (0.0-1.8) 10/19/21 07:22 Lymph # (Auto) 1.1 K/mm3 (1.2-5.4) L 10/19/21 07:22 [place] # (Auto) 1.3 K/mm3 (0.0-0.8) H 10/19/21 07:22 Eos # (Auto) 0.4 K/mm3 (0.0-0.4) 10/19/21 07:22 Baso # (Auto) 0.1 K/mm3 (0.0-0.1) 10/19/21 07:22 Add Manual Diff Complete 10/15/21 06:30 Total Counted 100 10/15/21 06:30 Seg Neutrophils % 78.3 % (40.0-70.0) H 10/19/21 07:22 Seg Neuts % (Manual) 62.0 % (40.0-70.0) 10/15/21 06:30 Band Neutrophils % 1.0 % 10/15/21 06:30 Lymphocytes % (Manual) 19.0 % (13.4-35.0) 10/15/21 06:30 Reactive Lymphs % (Man) 0 % 10/15/21 06:30 Monocytes % (Manual) 11.0 % (0.0-7.3) H 10/15/21 06:30 Eosinophils % (Manual) 5.0 % (0.0-4.3) H 10/15/21 06:30 Basophils % (Manual) 1.0 % (0.0-1.8) 10/15/21 06:30 Metamyelocytes % 0 % 10/15/21 06:30 Myelocytes % 1.0 % 10/15/21 06:30 Promyelocytes % 0 % 10/15/21 06:30 Blast Cells % 0 % 10/15/21 06:30 Nucleated RBC % Not Reportable 10/15/21 06:30 Seg Neutrophils # 10.7 K/mm3 (1.8-7.7) H 10/19/21 07:22 Seg Neutrophils # Man 5.5 K/mm3 (1.8-7.7) 10/15/21 06:30 Band Neutrophils # 0.1 K/mm3 10/15/21 06:30 Lymphocytes # (Manual) 1.7 K/mm3 (1.2-5.4) 10/15/21 06:30 Abs React Lymphs (Man) 0.0 K/mm3 10/15/21 06:30 Monocytes # (Manual) 1.0 K/mm3 (0.0-0.8) H 10/15/21 06:30 Eosinophils # (Manual) 0.4 K/mm3 (0.0-0.4) 10/15/21 06:30 Basophils # (Manual) 0.1 K/mm3 (0.0-0.1) 10/15/21 06:30 Metamyelocytes # 0.0 K/mm3 10/15/21 06:30 Myelocytes # 0.1 K/mm3 10/15/21 06:30 Promyelocytes # 0.0 K/mm3 10/15/21 06:30 Blast Cells # 0.0 K/mm3 10/15/21 06:30 WBC Morphology Not Reportable 10/15/21 06:30 Hypersegmented Neuts Not Reportable 10/15/21 06:30 Hyposegmented Neuts Not Reportable 10/15/21 06:30 Hypogranular Neuts Not Reportable 10/15/21 06:30 Smudge Cells Not Reportable 10/15/21 06:30 Toxic Granulation Not Reportable 10/15/21 06:30 Toxic Vacuolation Not Reportable 10/15/21 06:30 Dohle Bodies Not Reportable 10/15/21 06:30 Pelger-Huet Anomaly Not Reportable 10/15/21 06:30 Robert Rods Not Reportable 10/15/21 06:30 Platelet Estimate Consistent w auto 10/15/21 06:30 Clumped Platelets Not Reportable 10/15/21 06:30 Plt Clumps, EDTA Not Reportable 10/15/21 06:30 Large Platelets Not Reportable 10/15/21 06:30 Giant Platelets Not Reportable 10/15/21 06:30 Platelet Satelliting Not Reportable 10/15/21 06:30 Plt Morphology Comment Not Reportable 10/15/21 06:30 RBC Morphology Not Reportable 10/15/21 06:30 Dimorphic RBCs Not Reportable 10/15/21 06:30 Polychromasia Not Reportable 10/15/21 06:30 Hypochromasia Not Reportable 10/15/21 06:30 Poikilocytosis Not Reportable 10/15/21 06:30 Anisocytosis 1+ 10/15/21 06:30 Microcytosis Not Reportable 10/15/21 06:30 Macrocytosis 1+ 10/15/21 06:30 Spherocytes Not Reportable 10/15/21 06:30 Pappenheimer Bodies Not Reportable 10/15/21 06:30 Sickle Cells Not Reportable 10/15/21 06:30 Target Cells Not Reportable 10/15/21 06:30 Tear Drop Cells Not Reportable 10/15/21 06:30 Ovalocytes Not Reportable 10/15/21 06:30 Helmet Cells Not Reportable 10/15/21 06:30 Benavidez-[place] Bodies Not Reportable 10/15/21 06:30 [place] Rings Not Reportable 10/15/21 06:30 [place] Cells Not Reportable 10/15/21 06:30 Bite Cells Not Reportable 10/15/21 06:30 Crenated Cell Not Reportable 10/15/21 06:30 Elliptocytes Not Reportable 10/15/21 06:30 Acanthocytes (Spur) Not Reportable 10/15/21 06:30 Rouleaux Not Reportable 10/15/21 06:30 Hemoglobin C Crystals Not Reportable 10/15/21 06:30 Schistocytes Not Reportable 10/15/21 06:30 Malaria parasites Not Reportable 10/15/21 06:30 Johnny Bodies Not Reportable 10/15/21 06:30 Hem Pathologist Commnt No 10/15/21 06:30 Sodium 139 mmol/L (137-145) 10/19/21 07:22 Potassium 5.5 mmol/L (3.6-5.0) H 10/19/21 07:22 Chloride 106.9 mmol/L (98-107) 10/19/21 07:22 Carbon Dioxide 20 mmol/L (22-30) L 10/19/21 07:22 Anion Gap 18 mmol/L 10/19/21 07:22 BUN 42 mg/dL (9-20) H 10/19/21 07:22 Creatinine 1.6 mg/dL (0.8-1.3) H 10/19/21 07:22 Estimated GFR 44 ml/min 10/19/21 07:22 BUN/Creatinine Ratio 26 % 10/19/21 07:22 Glucose 203 mg/dL (75-100) H 10/19/21 07:22 POC Glucose 172 mg/dL (70-105) H 10/19/21 07:45 Hemoglobin A1c 5.9 % (4-6) 10/09/21 04:28 Calcium 8.8 mg/dL (8.4-10.2) 10/19/21 07:22 Total Bilirubin 0.20 mg/dL (0.1-1.2) 10/11/21 04:32 AST 23 units/L (5-40) 10/11/21 04:32 ALT 33 units/L (7-56) 10/11/21 04:32 Alkaline Phosphatase 324 units/L (35-129) H 10/11/21 04:32 Total Protein 5.1 g/dL (6.3-8.2) L 10/11/21 04:32 Albumin 2.2 g/dL (3.9-5) L 10/11/21 04:32 Albumin/Globulin Ratio 0.8 % 10/11/21 04:32 Coronavirus (PCR) Positive (Negative) A 10/16/21 Unknown Villalta/IV: Voiding Method Incontinent Active Medications - Current Medications Current Medications: Generic Name Dose Route Start Last Admin Trade Name Freq PRN Reason Stop Dose Admin Acetaminophen 650 mg 10/08/21 02:13 10/11/21 13:26 Acetaminophen 325 Mg Tab PO 650 mg Q4H PRN Administration Pain MILD(1-3)/Fever >100.5/HARO Famotidine 20 mg 10/11/21 10:00 10/18/21 11:33 Famotidine 20 Mg Tab PO 20 mg QAM ROYER Administration Heparin Sodium (Porcine) 5,000 unit 10/08/21 10:00 10/18/21 22:24 Heparin 5,000 Unit/1 Ml Vial SUB-Q 5,000 unit Q12HR ROYER Administration Sodium Chloride 1,000 mls @ 125 mls/hr 10/08/21 03:00 10/17/21 04:51 Nacl 0.45% 1000 Ml IV 125 mls/hr DIRECT ROYER Administration Insulin Human Lispro 0 unit 10/08/21 11:30 10/18/21 22:24 Insulin Lispro 100 Unit/Ml SUB-Q 3 unit ACHS ROYER Administration Protocol Lorazepam 2 mg 10/08/21 15:48 10/08/21 15:00 Lorazepam 2 Mg/Ml Vial IV 2 mg Q3H PRN Administration Agitation Ondansetron HCl 4 mg 10/08/21 02:13 Ondansetron 4 Mg/2 Ml Inj IV Q8H PRN Nausea And Vomiting Oxycodone/Acetaminophen 1 tab 10/08/21 02:13 10/19/21 05:59 Oxycodone /Acetaminophen 5-325mg Tab PO 1 tab Q6H PRN Administration Pain, Moderate (4-6) Sodium Chloride 10 ml 10/08/21 10:00 10/18/21 22:25 Sodium Chloride 0.9% 10 Ml Flush Syringe IV 10 ml BID ROYER Administration Sodium Chloride 10 ml 10/08/21 02:13 Sodium Chloride 0.9% 10 Ml Flush Syringe IV PRN PRN LINE FLUSH Nutrition/Malnutrition Assess - Dietary Evaluation Nutrition/Malnutrition Findings: Nutrition Notes Start: 10/08/21 09:33 Freq: Status: Active Protocol: Document 10/12/21 15:25 ROGERIO (Rec: 10/12/21 15:38 ROGERIO [id number]) Nutrition Notes Initial or Follow up Brief Note Current Diet Cardiac/Consistent Carbohydrates Diet (since D ), D Suppl (D 10/09). Height 5 ft 7 in Weight 85.3 kg [place] Body Weight (kg) 67.27 BMI 29.4 Weight change and time frame 3.1 Kg body weight gained iin 3 days reported. Subjective/Other Information RD consult for routine F/U on dietary intake assessment. Pt's PO intake of meals has been Good (75-100%), according to ADL notes. Pt ready to be discharged to SNF. Percent of energy/protein needs met: Prescribed Cardiac/Consistent Carbohydrates Diet provides for energy/protein needs (1, 977 Kcal/86 g) during LOS; additionally, Dietary Supplements will compensate for possible Poor PO intake of meals with 660 Kcal and 30 g of protein. Current % PO Good (75-100%) Minimum of two criteria No #1 Nutrition Diagnosis Inadequate oral intake Comments: Pt's PO intake of meals has been Good (75-100%), according to ADL notes. Diagnosis Progress(for reassessment Resolved documentation) Nutrition Intervention Change Diet Order: Continue Cardiac/Consistent Carbohydrates Diet Add Supplement/Snack (indicate name/kcal Continue 8 fl oz Glucerna; TID /protein ) . Provides kCal: 660 Provides Protein (gm) 30 Goal #1 Compensate, through dietary supplementation, for possible poor or insufficient PO intake of meals during LOS. Goal #2 Maintain body weight within +/ -3% of admission body weight during LOS. Follow-Up By: 10/19/21 Additional Comments Continue monitoring food tolerance, %PO intake of meals , and BM.
[2021-10-19] MEDS: HEPARIN 5,000 UNIT/1 ML VIAL SUB-Q SCH ×2 (10:25→21:59)
[2021-10-19] MEDS: FAMOTIDINE 20 MG TAB PO SCH (10:27)
[2021-10-19] MEDS: INSULIN LISPRO 100 UNIT/ML SUB-Q SCH ×4 (10:29→23:29)
[2021-10-19] MEDS: SODIUM CHLORIDE 0.9% 50 ML IVPB IV PRN (22:04)
--- NOTE | 2021-10-20 08:59 | Progress Note ---
Assessment and Plan Assessment and plan: 61-year-old male with history of cerebrovascular accident, type 2 diabetes and traumatic brain injury secondary abscess removal lives in personal- fdc. Patient is able to give a decent history. Patient says he was not able to get out of bed because of weakness. Apparently patient was not given much water and food and does not want to go back there. There is no vomiting. He says he is unable to get out of bed to go to the bathroom by himself. Patient wants to go to another facility for further care. In the emergency room patient was found to be severely dehydrated with high sodium levels because of which patient is being admitted. No fever or chills. Severe dehydration with hypernatremia and JAYME: Improved with hydration Hypertension COVID-19 PCR test positive: Asymptomatic, on room air, chest x-ray unremarkable. Acute kidney injury again worse with hyperkalemia and metabolic acidosis on 10/20 History of CVA and TBI Protein calorie malnutrition Diabetes mellitus type 2: Hemoglobin A1c 5.9 Leukocytosis: Persists at 14, etiology is unclear, could be related to groin intertrigo with erythema and excoriation. Gait disorder/generalized weakness: Continue PT/OT 10/14/2021. Follow-up CBC and chest x-ray for leukocytosis. Continue Accu-Cheks and sliding scale insulin. Follow-up BMP for hypernatremia. 10/15/2021. Hypernatremia and acute kidney injury have resolved. Patient awaiting for placement at SNF. Case management reports patient is waiting on authorization 10/16/2021. COVID positive. No symptomatology. Pt. unable to d/c to SNF 10/17/2021. Patient was planned for discharge to [facility] but unable to be accepted because COVID screening was positive. Patient is asymptomatic with no hypoxia. Await SNF placement 10/18/2021. Awaiting a SNF that will accept COVID patients or awaiting for negative COVID test to be accepted back to [facility]. Patient is asymptomatic and not hypoxic. Continue supportive care 10/20: Creatinine is rising again with metabolic acidosis and hyperkalemia. Ordered Kayexalate and bicarb drip. Leukocytosis persists, could be related to groin intertrigo with erythema and excoriation. Ordered procalcitonin, CRP, UA and blood cultures. Also awaiting SNF placement. Discussed with CM. History Interval history: Patient is awake, verbal and answers appropriately. Is complaining of pain in inner thigh where he has redness and excoriation. Remains afebrile but leukocytosis persists. Started on bicarb drip for JAYME with metabolic acidosis and hyperkalemia. He is also waiting for SNF placement. He is score is positive but on room air. Has difficulty with gait and working with PT/OT. Hospitalist Physical - Constitutional Vitals: Temp Pulse Resp BP Pulse Ox 98.0 F 95 H 18 142/86 98 10/20/21 05:38 10/20/21 05:38 10/20/21 05:38 10/20/21 05:38 10/20/21 05:38 General appearance: Present: no acute distress, disheveled, other (Anxious) - EENT Eyes: Present: PERRL, EOM intact ENT: hearing intact - Neck Neck: Present: supple - Respiratory Respiratory effort: normal Respiratory: bilateral: CTA - Cardiovascular Rhythm: regular - Extremities Extremities: No edema Extremity abnormal: other (Inner thigh and the scrotal erythema with inner thigh excoriations.) - Abdominal General gastrointestinal: soft, non-tender, non-distended - Integumentary Integumentary: Present: rash (Scrotal/inner thigh erythema with excoriation) - Psychiatric Psychiatric: other (Anxious) - Neurologic Neurologic: other (Alert and fairly oriented and answers appropriately. Has a difficulty with her gait.) Results - Labs CBC & Chem 7: 10/20/21 11:57 10/20/21 11:57 Labs: Laboratory Last Values WBC 13.6 K/mm3 (4.5-11.0) H 10/19/21 07: RBC 2.67 M/mm3 (3.65-5.03) L 10/19/21 07:22 Hgb 8.1 gm/dl (11.8-15.2) L 10/19/21 07: Hct 24.8 % (35.5-45.6) L 10/19/21 07:22 MCV 93 fl (84-94) 10/19/21 07:22 MCH 30 pg (28-32) 10/19/21 07: MCHC 33 % (32-34) 10/19/21 07:22 RDW 17.5 % (13.2-15.2) H 10/19/21 07:22 Plt Count 408 K/mm3 (140-440) 10/19/21 07:22 Lymph % (Auto) 8.4 % (13.4-35.0) L 10/19/21 07:22 [place] % (Auto) 9.7 % (0.0-7.3) H 10/19/21 07:22 Eos % (Auto) 2.7 % (0.0-4.3) 10/19/21 07:22 Baso % (Auto) 0.9 % (0.0-1.8) 10/19/21 07:22 Lymph # (Auto) 1.1 K/mm3 (1.2-5.4) L 10/19/21 07:22 [place] # (Auto) 1.3 K/mm3 (0.0-0.8) H 10/19/21 07:22 Eos # (Auto) 0.4 K/mm3 (0.0-0.4) 10/19/21 07:22 Baso # (Auto) 0.1 K/mm3 (0.0-0.1) 10/19/21 07:22 Add Manual Diff Complete 10/15/21 06:30 Total Counted 100 10/15/21 06:30 Seg Neutrophils % 78.3 % (40.0-70.0) H 10/19/21 07:22 Seg Neuts % (Manual) 62.0 % (40.0-70.0) 10/15/21 06:30 Band Neutrophils % 1.0 % 10/15/21 06:30 Lymphocytes % (Manual) 19.0 % (13.4-35.0) 10/15/21 06:30 Reactive Lymphs % (Man) 0 % 10/15/21 06:30 Monocytes % (Manual) 11.0 % (0.0-7.3) H 10/15/21 06:30 Eosinophils % (Manual) 5.0 % (0.0-4.3) H 10/15/21 06:30 Basophils % (Manual) 1.0 % (0.0-1.8) 10/15/21 06:30 Metamyelocytes % 0 % 10/15/21 06:30 Myelocytes % 1.0 % 10/15/21 06:30 Promyelocytes % 0 % 10/15/21 06:30 Blast Cells % 0 % 10/15/21 06:30 Nucleated RBC % Not Reportable 10/15/21 06:30 Seg Neutrophils # 10.7 K/mm3 (1.8-7.7) H 10/19/21 07:22 Seg Neutrophils # Man 5.5 K/mm3 (1.8-7.7) 10/15/21 06:30 Band Neutrophils # 0.1 K/mm3 10/15/21 06:30 Lymphocytes # (Manual) 1.7 K/mm3 (1.2-5.4) 10/15/21 06:30 Abs React Lymphs (Man) 0.0 K/mm3 10/15/21 06:30 Monocytes # (Manual) 1.0 K/mm3 (0.0-0.8) H 10/15/21 06:30 Eosinophils # (Manual) 0.4 K/mm3 (0.0-0.4) 10/15/21 06:30 Basophils # (Manual) 0.1 K/mm3 (0.0-0.1) 10/15/21 06:30 Metamyelocytes # 0.0 K/mm3 10/15/21 06:30 Myelocytes # 0.1 K/mm3 10/15/21 06:30 Promyelocytes # 0.0 K/mm3 10/15/21 06:30 Blast Cells # 0.0 K/mm3 10/15/21 06:30 WBC Morphology Not Reportable 10/15/21 06:30 Hypersegmented Neuts Not Reportable 10/15/21 06:30 Hyposegmented Neuts Not Reportable 10/15/21 06:30 Hypogranular Neuts Not Reportable 10/15/21 06:30 Smudge Cells Not Reportable 10/15/21 06:30 Toxic Granulation Not Reportable 10/15/21 06:30 Toxic Vacuolation Not Reportable 10/15/21 06:30 Dohle Bodies Not Reportable 10/15/21 06:30 Pelger-Huet Anomaly Not Reportable 10/15/21 06:30 Robert Rods Not Reportable 10/15/21 06:30 Platelet Estimate Consistent w auto 10/15/21 06:30 Clumped Platelets Not Reportable 10/15/21 06:30 Plt Clumps, EDTA Not Reportable 10/15/21 06:30 Large Platelets Not Reportable 10/15/21 06:30 Giant Platelets Not Reportable 10/15/21 06:30 Platelet Satelliting Not Reportable 10/15/21 06:30 Plt Morphology Comment Not Reportable 10/15/21 06:30 RBC Morphology Not Reportable 10/15/21 06:30 Dimorphic RBCs Not Reportable 10/15/21 06:30 Polychromasia Not Reportable 10/15/21 06:30 Hypochromasia Not Reportable 10/15/21 06:30 Poikilocytosis Not Reportable 10/15/21 06:30 Anisocytosis 1+ 10/15/21 06:30 Microcytosis Not Reportable 10/15/21 06:30 Macrocytosis 1+ 10/15/21 06:30 Spherocytes Not Reportable 10/15/21 06:30 Pappenheimer Bodies Not Reportable 10/15/21 06:30 Sickle Cells Not Reportable 10/15/21 06:30 Target Cells Not Reportable 10/15/21 06:30 Tear Drop Cells Not Reportable 10/15/21 06:30 Ovalocytes Not Reportable 10/15/21 06:30 Helmet Cells Not Reportable 10/15/21 06:30 [place] Bodies Not Reportable 10/15/21 06:30 [place] Rings Not Reportable 10/15/21 06:30 [place] Cells Not Reportable 10/15/21 06:30 Bite Cells Not Reportable 10/15/21 06:30 Crenated Cell Not Reportable 10/15/21 06:30 Elliptocytes Not Reportable 10/15/21 06:30 Acanthocytes (Spur) Not Reportable 10/15/21 06:30 Rouleaux Not Reportable 10/15/21 06:30 Hemoglobin C Crystals Not Reportable 10/15/21 06:30 Schistocytes Not Reportable 10/15/21 06:30 Malaria parasites Not Reportable 10/15/21 06:30 Johnny Bodies Not Reportable 10/15/21 06:30 Hem Pathologist Commnt No 10/15/21 06:30 Sodium 139 mmol/L (137-145) 10/19/21 07:22 Potassium 5.5 mmol/L (3.6-5.0) H 10/19/21 07:22 Chloride 106.9 mmol/L (98-107) 10/19/21 07:22 Carbon Dioxide 20 mmol/L (22-30) L 10/19/21 07:22 Anion Gap 18 mmol/L 10/19/21 07:22 BUN 42 mg/dL (9-20) H 10/19/21 07:22 Creatinine 1.6 mg/dL (0.8-1.3) H 10/19/21 07:22 Estimated GFR 44 ml/min 10/19/21 07:22 BUN/Creatinine Ratio 26 % 10/19/21 07:22 Glucose 203 mg/dL (75-100) H 10/19/21 07:22 POC Glucose 159 mg/dL (70-105) H 10/19/21 23:25 Hemoglobin A1c 5.9 % (4-6) 10/09/21 04:28 Calcium 8.8 mg/dL (8.4-10.2) 10/19/21 07:22 Total Bilirubin 0.20 mg/dL (0.1-1.2) 10/11/21 04:32 AST 23 units/L (5-40) 10/11/21 04:32 ALT 33 units/L (7-56) 10/11/21 04:32 Alkaline Phosphatase 324 units/L (35-129) H 10/11/21 04:32 Total Protein 5.1 g/dL (6.3-8.2) L 10/11/21 04:32 Albumin 2.2 g/dL (3.9-5) L 10/11/21 04:32 Albumin/Globulin Ratio 0.8 % 10/11/21 04:32 Coronavirus (PCR) Positive (Negative) A 10/16/21 Unknown Villalta/IV: Voiding Method Incontinent Active Medications - Current Medications Current Medications: Generic Name Dose Route Start Last Admin Trade Name Freq PRN Reason Stop Dose Admin Acetaminophen 650 mg 10/08/21 02:13 10/11/21 13:26 Acetaminophen 325 Mg Tab PO 650 mg Q4H PRN Administration Pain MILD(1-3)/Fever >100.5/HARO Famotidine 20 mg 10/11/21 10:00 10/19/21 10:27 Famotidine 20 Mg Tab PO 20 mg QAM ROYER Administration Heparin Sodium (Porcine) 5,000 unit 10/08/21 10:00 10/19/21 21:59 Heparin 5,000 Unit/1 Ml Vial SUB-Q 5,000 unit Q12HR ROYER Administration Sodium Chloride 1,000 mls @ 125 mls/hr 10/08/21 03:00 10/17/21 04:51 Nacl 0.45% 1000 Ml IV 125 mls/hr DIRECT ROYER Administration Insulin Human Lispro 0 unit 10/08/21 11:30 10/19/21 23:29 Insulin Lispro 100 Unit/Ml SUB-Q 3 unit ACHS ROYER Administration Protocol Lorazepam 2 mg 10/08/21 15:48 10/08/21 15:00 Lorazepam 2 Mg/Ml Vial IV 2 mg Q3H PRN Administration Agitation Ondansetron HCl 4 mg 10/08/21 02:13 Ondansetron 4 Mg/2 Ml Inj IV Q8H PRN Nausea And Vomiting Oxycodone/Acetaminophen 1 tab 10/08/21 02:13 10/19/21 05:59 Oxycodone /Acetaminophen 5-325mg Tab PO 1 tab Q6H PRN Administration Pain, Moderate (4-6) Sodium Chloride 10 ml 10/08/21 10:00 10/19/21 22:04 Sodium Chloride 0.9% 10 Ml Flush Syringe IV Not Given BID ROYER Sodium Chloride 10 ml 10/19/21 14:31 10/19/21 22:04 Sodium Chloride 0.9% 50 Ml Ivpb IV 10 ml PRN PRN Administration FLUSH Nutrition/Malnutrition Assess - Dietary Evaluation Nutrition/Malnutrition Findings: Nutrition Notes Start: 10/08/21 09:33 Freq: Status: Active Protocol: Document 10/12/21 15:25 ROGERIO (Rec: 10/12/21 15:38 ROGERIO [id number]) Nutrition Notes Initial or Follow up Brief Note Current Diet Cardiac/Consistent Carbohydrates Diet (since D ), D Suppl (D 10/09). Height 5 ft 7 in Weight 85.3 kg [place] Body Weight (kg) 67.27 BMI 29.4 Weight change and time frame 3.1 Kg body weight gained iin 3 days reported. Subjective/Other Information RD consult for routine F/U on dietary intake assessment. Pt's PO intake of meals has been Good (75-100%), according to ADL notes. Pt ready to be discharged to SNF. Percent of energy/protein needs met: Prescribed Cardiac/Consistent Carbohydrates Diet provides for energy/protein needs (1, 977 Kcal/86 g) during LOS; additionally, Dietary Supplements will compensate for possible Poor PO intake of meals with 660 Kcal and 30 g of protein. Current % PO Good (75-100%) Minimum of two criteria No #1 Nutrition Diagnosis Inadequate oral intake Comments: Pt's PO intake of meals has been Good (75-100%), according to ADL notes. Diagnosis Progress(for reassessment Resolved documentation) Nutrition Intervention Change Diet Order: Continue Cardiac/Consistent Carbohydrates Diet Add Supplement/Snack (indicate name/kcal Continue 8 fl oz Glucerna; TID /protein ) . Provides kCal: 660 Provides Protein (gm) 30 Goal #1 Compensate, through dietary supplementation, for possible poor or insufficient PO intake of meals during LOS. Goal #2 Maintain body weight within +/ -3% of admission body weight during LOS. Follow-Up By: 10/19/21 Additional Comments Continue monitoring food tolerance, %PO intake of meals , and BM.
[2021-10-20 12:26] LABS: Basophils # (Auto) 0.1 K/mm3 (0.0-0.1); Basophils % (Auto) 0.8 % (0.0-1.8); Eosinophils # (Auto) 0.4 K/mm3 (0.0-0.4); Eosinophils % (Auto) 2.6 % (0.0-4.3); Hematocrit 25.6 % (35.5-45.6); Hemoglobin 8.1 gm/dl (11.8-15.2); Lymphocytes % (Auto) 7.4 % (13.4-35.0); Mean Corpuscular HGB Conc 32 % (32-34); Mean Corpuscular Volume 92 fl (84-94); Monocytes % (Auto) 7.5 % (0.0-7.3); Platelet Count 427 K/mm3 (140-440); Red Blood Count 2.79 M/mm3 (3.65-5.03); Red Cell Distribution Width 17.4 % (13.2-15.2)
[2021-10-20 13:00] LABS: Albumin 2.8 g/dL (3.9-5); Calcium 8.9 mg/dL (8.4-10.2)
[2021-10-20] MEDS: HEPARIN 5,000 UNIT/1 ML VIAL SUB-Q SCH (22:10)
[2021-10-20] MEDS: INSULIN LISPRO 100 UNIT/ML SUB-Q SCH (23:13)
[2021-10-20] MEDS: SODIUM CHLORIDE 0.9% 50 ML IVPB IV PRN (23:18)
[2021-10-21] MEDS ORDERED: SODIUM BICARB 8.4% 50 MEQ/50 ML SYRINGE IV ONE (01:38)
[2021-10-21] MEDS ORDERED: SODIUM POLYSTYRENE 15 GM/60 ML ORAL LIQD PO ONE (01:40)
[2021-10-21 02:52] LABS: Basophils # (Auto) 0.1 K/mm3 (0.0-0.1); Eosinophils # (Auto) 0.4 K/mm3 (0.0-0.4); Eosinophils % (Auto) 3.5 % (0.0-4.3); Hematocrit 24.2 % (35.5-45.6); Hemoglobin 7.8 gm/dl (11.8-15.2); Lymphocytes # (Auto) 1.3 K/mm3 (1.2-5.4); Lymphocytes % (Auto) 11.7 % (13.4-35.0); Mean Corpuscular HGB Conc 32 % (32-34); Mean Corpuscular Volume 93 fl (84-94); Monocytes # (Auto) 0.8 K/mm3 (0.0-0.8); Monocytes % (Auto) 7.2 % (0.0-7.3); Platelet Count 480 K/mm3 (140-440); Red Blood Count 2.59 M/mm3 (3.65-5.03); Red Cell Distribution Width 17.1 % (13.2-15.2)
[2021-10-21 03:17] LABS: Calcium 8.7 mg/dL (8.4-10.2)
[2021-10-21 03:35] LABS: C-Reactive Protein 11.5 mg/dL (0.00-1.30)
[2021-10-21] MEDS: SODIUM BICARBONATE 150 MEQ in DEXTROSE 5% IN WATER 1,000 ML IV SCH ×2 (04:11→14:59)
[2021-10-21 04:15] LABS: Bilirubin,Urine NEG (Negative); Blood,Urine NEG (Negative); Color,Urine Yellow (Yellow); Protein,Urine <15 mg/dL mg/dL (Negative); Urobilinogen,Urine < 2.0 mg/dL (<2.0)
[2021-10-21] MEDS: INSULIN LISPRO 100 UNIT/ML SUB-Q SCH ×5 (08:06→23:04)
[2021-10-21] MEDS: HEPARIN 5,000 UNIT/1 ML VIAL SUB-Q SCH ×2 (09:37→23:04)
--- NOTE | 2021-10-21 10:32 | Consultation ---
History of Present Illness - Reason for Consult Consult date: 10/21/21 acute renal failure, hyperkalemia, metabolic acidosis - History of Present Illness The patient is a 61 YO -year-old male with history of DM-2, Hypertension, CVA and traumatic brain injury who presented to [facility] ED 10/07/21 with generalized weakness. Patient is a poor historian. He was weak to get out of bed. Also h/o decreased PO intake. No h/o vomiting, diarrhea, fever or chills. In the emergency room patient was found in JAYME sherley hypernatremic. Current labs showed Sodium 133. K 5.3, Creat 1.9 and BUN 51. Nephrology was consulted for further evaluation of JAYME. Medications and Allergies Allergies Allergy/AdvReac Type Severity Reaction Status Date / Time No Known Allergies Allergy Verified 11/26/18 01:03 Home Medications Medication Instructions Recorded Confirmed Last Taken Type Buspirone HCl [busPIRone] 15 mg PO QDAY #30 10/12/21 Unknown Rx Citalopram [Celexa] 20 mg PO QDAY #30 10/12/[address] [Depakote Dr] 250 mg PO QDAY #30 10/12/21 Unknown Rx Duloxetine HCl [Cymbalta] 40 mg PO QDAY #30 10/12/21 Unknown Rx Famotidine [Pepcid] 20 mg PO BID #60 10/12/21 Unknown Rx Insulin Detemir [Levemir Flextouch] 20 unit SQ HS #1 vial 10/12/21 Unknown Rx Lispro Insulin [HumaLOG] 5 unit SQ BID #1 vial 10/12/21 Unknown Rx Memantine 10 mg PO QDAY #30 10/12/21 Unknown Rx lisinopriL [Lisinopril] 10 mg PO QDAY #30 10/12/21 Unknown Rx Acetaminophen [Acetaminophen TAB] 650 mg PO Q4H PRN tablet 10/15/21 Unknown Rx Famotidine [Pepcid] 20 mg PO QAM tablet 10/15/21 Unknown Rx Active Meds: Active Medications Acetaminophen (Acetaminophen 325 Mg Tab) 650 mg PO Q4H PRN PRN Reason: Pain MILD(1-3)/Fever >100.5/HARO Last Admin: 10/11/21 13:26 Dose: 650 mg Famotidine (Famotidine 20 Mg Tab) 20 mg PO QAM [facility] Last Admin: 10/21/21 09:37 Dose: 20 mg Heparin Sodium (Porcine) (Heparin 5,000 Unit/1 Ml Vial) 5,000 unit SUB-Q Q12HR [facility] Last Admin: 10/21/21 09:37 Dose: 5,000 unit Sodium Bicarbonate 150 meq/ (Dextrose) 1,150 mls @ 100 mls/hr IV DIRECT ROYER Last Admin: 10/21/21 04:11 Dose: 100 mls/hr Ceftriaxone Sodium (Rocephin/Ns 1 Gm/50 Ml) 1 gm in 50 mls @ 100 mls/hr IV Q24HR ROYER; Protocol Insulin Human Lispro (Insulin Lispro 100 Unit/Ml) 0 unit SUB-Q ACHS [facility]; Protocol Last Admin: 10/21/21 08:06 Dose: Not Given Lorazepam (Lorazepam 2 Mg/Ml Vial) 2 mg IV Q3H PRN PRN Reason: Agitation Last Admin: 10/08/21 15:00 Dose: 2 mg Ondansetron HCl (Ondansetron 4 Mg/2 Ml Inj) 4 mg IV Q8H PRN PRN Reason: Nausea And Vomiting Oxycodone/Acetaminophen (Oxycodone /Acetaminophen 5-325mg Tab) 1 tab PO Q6H PRN PRN Reason: Pain, Moderate (4-6) Last Admin: 10/19/21 05:59 Dose: 1 tab Sodium Chloride (Sodium Chloride 0.9% 10 Ml Flush Syringe) 10 ml IV BID ROYER Last Admin: 10/20/21 23:23 Dose: Not Given Sodium Chloride (Sodium Chloride 0.9% 50 Ml Ivpb) 10 ml IV PRN PRN PRN Reason: FLUSH Last Admin: 10/20/21 23:18 Dose: 10 ml Review of Systems ROS unobtainable: due to mental status Exam - Vital Signs Vital signs: Vital Signs Pulse Resp BP Pulse Ox 100 H 20 160/90 100 10/07/21 13:41 10/07/21 13:41 10/07/21 13:41 10/07/21 13:41 Results - Lab Results 10/21/21 02:02 10/22/21 07:37 Most recent lab results Calcium 8.7 mg/dL (8.4-10.2) 10/21/21 02:02 Assessment and Plan 1. Acute kidney injury: Likely vasomotor JAYME, vasomotor. UA negative for protein and blood. Continue IV fluids. Monitor renal function. Avoid nephrotoxic agents. Meds dosage based on GFR. 2. FEN: Hypernatremia, hypotonic IV fluids, monitor. Hyperkalemia, Kayexalate ordered. Monitor lytes and volume status. 3. COVID-9 infection: PCR test positive. Asymptomatic, on room air, chest x-ray unremarkable. 4. History of CVA and TBI 5. Diabetes mellitus type 2: Hemoglobin A1c 5.9 6. Leukocytosis. 7. Hypertension: Monitor BP. Subjective: Patient was seen and examined at the bedside. Examination: General appearance: well-developed, appears stated age, no distress HEENT: atraumatic, TIM Neck: trachea midline Respiratory: diminished breath sounds bilaterally Heart: S1S2, regular, no murmur Abdomen: obese, soft, bowel sounds heard, NT, appears distended Integumentary: no obvious rash noted Neurologic: alert, conversing, moving ext, confused Ext: no edema noted
[2021-10-21] MEDS: oxyCODONE /ACETAMINOPHEN 5-325MG TAB PO PRN ×2 (13:40→23:05)
[2021-10-21] MEDS: cefTRIAXone/NS 1 GM/50 ML 1 GM/50 ML BAG IV SCH (14:10)
--- NOTE | 2021-10-21 15:16 | Vascular Lab Report ---
DUPLEX DOPPLER LOWER EXTREMITY VEINS, BILATERAL INDICATION / CLINICAL INFORMATION: Rule out DVT. TECHNIQUE: Duplex doppler imaging was performed through the veins of both lower extremities using julián ous compression and other maneuvers. COMPARISON: Bilateral lower extremity venous Doppler 06/06/2021. FINDINGS: RIGHT COMMON FEMORAL VEIN: Negative. RIGHT FEMORAL VEIN: Negative. RIGHT POPLITEAL VEIN: Negative. RIGHT CALF VEINS: Negative. LEFT COMMON FEMORAL VEIN: Negative. LEFT FEMORAL VEIN: Negative. LEFT POPLITEAL VEIN: Negative. LEFT CALF VEINS: Negative. ADDITIONAL FINDINGS: None. IMPRESSION: 1. Technically limited exam due to patient discomfort. No sonographic evidence for DVT in either lowe r extremity. Scribed by: Johanny Chapman RDMS, RVT Scribed: 10/21/2021 1:48 PM I have reviewed the images, agree with this report, and edited this report as needed. Signer Name: Anthony Silva MD Signed: 10/21/2021 3:11 PM Workstation Name: [id number]
--- NOTE | 2021-10-21 19:20 | Progress Note ---
Assessment and Plan Assessment and plan: 61-year-old male with history of cerebrovascular accident, type 2 diabetes and traumatic brain injury secondary abscess removal lives in [facility] [place] [facility]. Patient is able to give a decent history. Patient says he was not able to get out of bed because of weakness. Apparently patient was not given much water and food and does not want to go back there. There is no vomiting. He says he is unable to get out of bed to go to the bathroom by himself. Patient wants to go to another facility for further care. In the emergency room patient was found to be severely dehydrated with high sodium levels because of which patient is being admitted. No fever or chills. Severe dehydration with hypernatremia and JAYME: Improved with hydration Creatinine is rising again, nephrology consulted/evaluating Hypertension COVID-19 PCR test positive: Asymptomatic, on room air, chest x-ray unremarkable. Acute kidney injury again worse with hyperkalemia and metabolic acidosis on 10/20 History of CVA and TBI Protein calorie malnutrition Diabetes mellitus type 2: Hemoglobin A1c 5.9 Leukocytosis: Persists at 14, etiology is unclear, could be related to groin intertrigo with erythema and excoriation. Start Rocephin empirically, improving. Blood cultures negative. Ultrasound negative for DVT in lower extremities. Gait disorder/generalized weakness: Continue PT/OT 10/14/2021. Follow-up CBC and chest x-ray for leukocytosis. Continue Accu-Cheks and sliding scale insulin. Follow-up BMP for hypernatremia. 10/15/2021. Hypernatremia and acute kidney injury have resolved. Patient a waiting for placement at SNF. Case management reports patient is waiting on authorization 10/16/2021. COVID positive. No symptomatology. Pt. unable to d/c to SNF 10/17/2021. Patient was planned for discharge to [facility] but unable to be accepted because COVID screening was positive. Patient is asymptomatic with no hypoxia. Await SNF placement 10/18/2021. Awaiting a SNF that will accept COVID patients or awaiting for negative COVID test to be accepted back to [facility]. Patient is asymptomatic and not hypoxic. Continue supportive care 10/20: Creatinine is rising again with metabolic acidosis and hyperkalemia. Ordered Kayexalate and bicarb drip. Leukocytosis persists, could be related to groin intertrigo with erythema and excoriation. Ordered procalcitonin, CRP, UA and blood cultures. Also awaiting SNF placement. Discussed with CM. 10/21: Afebrile, leukocytosis improving since placed on Rocephin empirically. Groin intertrigo with the erythema, maceration and excoriation present. Continue topical nystatin. Creatinine is rising again, consulted nephrology/evaluating. Discussed with the RN and CM. History Interval history: Patient is afebrile with stable vital signs, tolerating diet, leukocytosis improving since placed on Rocephin empirically, groin intertrigo is a painful to him, JAYME is worse/nephrology consulted. Urine output not measured Hospitalist Physical - Constitutional Vitals: Temp Pulse Resp BP Pulse Ox 98.0 F 91 H 18 130/76 99 10/21/21 04:28 10/21/21 04:28 10/21/21 04:28 10/21/21 04:28 10/21/21 07:04 General appearance: Present: no acute distress, disheveled, other (Anxious) - EENT Eyes: Present: PERRL ENT: clear oral mucosa - Neck Neck: Present: supple - Respiratory Respiratory effort: normal Respiratory: bilateral: CTA - Cardiovascular Rhythm: regular - Extremities Extremities: No edema - Abdominal General gastrointestinal: soft, non-tender, non-distended - Integumentary Integumentary: Present: rash (Intertrigo changes with erythema of scrotum/inner thigh erythema and excoriation/maceration.) Results - Labs CBC & Chem 7: 10/21/21 02:02 10/21/21 02:02 Labs: Laboratory Last Values WBC 11.3 K/mm3 (4.5-11.0) H 10/21/21 02:02 RBC 2.59 M/mm3 (3.65-5.03) L 10/21/21 02:02 Hgb 7.8 gm/dl (11.8-15.2) L 10/21/21 02:02 Hct 24.2 % (35.5-45.6) L 10/21/21 02:02 MCV 93 fl (84-94) 10/21/21 02:02 MCH 30 pg (28-32) 10/21/21 02:02 MCHC 32 % (32-34) 10/21/21 02:02 RDW 17.1 % (13.2-15.2) H 10/21/21 02:02 Plt Count 480 K/mm3 (140-440) H 10/21/21 02:02 Lymph % (Auto) 11.7 % (13.4-35.0) L 10/21/21 02:02 Sebastian % (Auto) 7.2 % (0.0-7.3) 10/21/21 02:02 Eos % (Auto) 3.5 % (0.0-4.3) 10/21/21 02:02 Baso % (Auto) 1.0 % (0.0-1.8) 10/21/21 02:02 Lymph # (Auto) 1.3 K/mm3 (1.2-5.4) 10/21/21 02:02 Sebastian # (Auto) 0.8 K/mm3 (0.0-0.8) 10/21/21 02:02 Eos # (Auto) 0.4 K/mm3 (0.0-0.4) 10/21/21 02:02 Baso # (Auto) 0.1 K/mm3 (0.0-0.1) 10/21/21 02:02 Add Manual Diff Complete 10/15/21 06:30 Total Counted 100 10/15/21 06:30 Seg Neutrophils % 76.6 % (40.0-70.0) H 10/21/21 02:02 Seg Neuts % (Manual) 62.0 % (40.0-70.0) 10/15/21 06:30 Band Neutrophils % 1.0 % 10/15/21 06:30 Lymphocytes % (Manual) 19.0 % (13.4-35.0) 10/15/21 06:30 Reactive Lymphs % (Man) 0 % 10/15/21 06:30 Monocytes % (Manual) 11.0 % (0.0-7.3) H 10/15/21 06:30 Eosinophils % (Manual) 5.0 % (0.0-4.3) H 10/15/21 06:30 Basophils % (Manual) 1.0 % (0.0-1.8) 10/15/21 06:30 Metamyelocytes % 0 % 10/15/21 06:30 Myelocytes % 1.0 % 10/15/21 06:30 Promyelocytes % 0 % 10/15/21 06:30 Blast Cells % 0 % 10/15/21 06:30 Nucleated RBC % Not Reportable 10/15/21 06:30 Seg Neutrophils # 8.7 K/mm3 (1.8-7.7) H 10/21/21 02:02 Seg Neutrophils # Man 5.5 K/mm3 (1.8-7.7) 10/15/21 06:30 Band Neutrophils # 0.1 K/mm3 10/15/21 06:30 Lymphocytes # (Manual) 1.7 K/mm3 (1.2-5.4) 10/15/21 06:30 Abs React Lymphs (Man) 0.0 K/mm3 10/15/21 06:30 Monocytes # (Manual) 1.0 K/mm3 (0.0-0.8) H 10/15/21 06:30 Eosinophils # (Manual) 0.4 K/mm3 (0.0-0.4) 10/15/21 06:30 Basophils # (Manual) 0.1 K/mm3 (0.0-0.1) 10/15/21 06:30 Metamyelocytes # 0.0 K/mm3 10/15/21 06:30 Myelocytes # 0.1 K/mm3 10/15/21 06:30 Promyelocytes # 0.0 K/mm3 10/15/21 06:30 Blast Cells # 0.0 K/mm3 10/15/21 06:30 WBC Morphology Not Reportable 10/15/21 06:30 Hypersegmented Neuts Not Reportable 10/15/21 06:30 Hyposegmented Neuts Not Reportable 10/15/21 06:30 Hypogranular Neuts Not Reportable 10/15/21 06:30 Smudge Cells Not Reportable 10/15/21 06:30 Toxic Granulation Not Reportable 10/15/21 06:30 Toxic Vacuolation Not Reportable 10/15/21 06:30 Dohle Bodies Not Reportable 10/15/21 06:30 Pelger-Huet Anomaly Not Reportable 10/15/21 06:30 Robert Rods Not Reportable 10/15/21 06:30 Platelet Estimate Consistent w auto 10/15/21 06:30 Clumped Platelets Not Reportable 10/15/21 06:30 Plt Clumps, EDTA Not Reportable 10/15/21 06:30 Large Platelets Not Reportable 10/15/21 06:30 Giant Platelets Not Reportable 10/15/21 06:30 Platelet Satelliting Not Reportable 10/15/21 06:30 Plt Morphology Comment Not Reportable 10/15/21 06:30 RBC Morphology Not Reportable 10/15/21 06:30 Dimorphic RBCs Not Reportable 10/15/21 06:30 Polychromasia Not Reportable 10/15/21 06:30 Hypochromasia Not Reportable 10/15/21 06:30 Poikilocytosis Not Reportable 10/15/21 06:30 Anisocytosis 1+ 10/15/21 06:30 Microcytosis Not Reportable 10/15/21 06:30 Macrocytosis 1+ 10/15/21 06:30 Spherocytes Not Reportable 10/15/21 06:30 Pappenheimer Bodies Not Reportable 10/15/21 06:30 Sickle Cells Not Reportable 10/15/21 06:30 Target Cells Not Reportable 10/15/21 06:30 Tear Drop Cells Not Reportable 10/15/21 06:30 Ovalocytes Not Reportable 10/15/21 06:30 Helmet Cells Not Reportable 10/15/21 06:30 Benavidez-Hosston Bodies Not Reportable 10/15/21 06:30 [place] Rings Not Reportable 10/15/21 06:30 [place] Cells Not Reportable 10/15/21 06:30 Bite Cells Not Reportable 10/15/21 06:30 Crenated Cell Not Reportable 10/15/21 06:30 Elliptocytes Not Reportable 10/15/21 06:30 Acanthocytes (Spur) Not Reportable 10/15/21 06:30 Rouleaux Not Reportable 10/15/21 06:30 Hemoglobin C Crystals Not Reportable 10/15/21 06:30 Schistocytes Not Reportable 10/15/21 06:30 Malaria parasites Not Reportable 10/15/21 06:30 Johnny Bodies Not Reportable 10/15/21 06:30 Hem Pathologist Commnt No 10/15/21 06:30 Sodium 133 mmol/L (137-145) L 10/21/21 02:02 Potassium 5.3 mmol/L (3.6-5.0) H 10/21/21 02:02 Chloride 102.7 mmol/L (98-107) 10/21/21 02:02 Carbon Dioxide 18 mmol/L (22-30) L 10/21/21 02:02 Anion Gap 18 mmol/L 10/21/21 02:02 BUN 51 mg/dL (9-20) H 10/21/21 02:02 Creatinine 1.9 mg/dL (0.8-1.3) H 10/21/21 02:02 Estimated GFR 36 ml/min 10/21/21 02:02 BUN/Creatinine Ratio 27 % 10/21/21 02:02 Glucose 170 mg/dL (75-100) H 10/21/21 02:02 POC Glucose 221 mg/dL (70-105) H 10/21/21 16:13 Hemoglobin A1c 5.9 % (4-6) 10/09/21 04:28 Calcium 8.7 mg/dL (8.4-10.2) 10/21/21 02:02 Total Bilirubin 0.20 mg/dL (0.1-1.2) 10/21/21 02:02 AST 24 units/L (5-40) 10/21/21 02:02 ALT 54 units/L (7-56) 10/21/21 02:02 Alkaline Phosphatase 734 units/L (35-129) H 10/21/21 02:02 C-Reactive Protein 11.50 mg/dL (0.00-1.30) H 10/21/21 02:02 Total Protein 6.6 g/dL (6.3-8.2) 10/21/21 02:02 Albumin 3.0 g/dL (3.9-5) L 10/21/21 02:02 Albumin/Globulin Ratio 0.8 % 10/21/21 02:02 Procalcitonin 0.36 ng/mL (<0.15) 10/21/21 02:02 Urine Color Yellow (Yellow) 10/21/21 03:40 Urine Turbidity Cloudy (Clear) 10/21/21 03:40 Urine pH 5.0 (5.0-7.0) 10/21/21 03:40 Ur Specific [place] 1.009 (1.003-1.030) 10/21/21 03:40 Urine Protein <15 mg/dl mg/dL (Negative) 10/21/21 03:40 Urine Glucose (UA) Neg mg/dL (Negative) 10/21/21 03:40 Urine Ketones Neg mg/dL (Negative) 10/21/21 03:40 Urine Blood Neg (Negative) 10/21/21 03:40 Urine Nitrite Neg (Negative) 10/21/21 03:40 Urine Bilirubin Neg (Negative) 10/21/21 03:40 Urine Urobilinogen < 2.0 mg/dL (<2.0) 10/21/21 03:40 Ur Leukocyte Esterase Lg (Negative) 10/21/21 03:40 Urine WBC (Auto) 97.0 /HPF (0.0-6.0) H 10/21/21 03:40 Urine RBC (Auto) 1.0 /HPF (0.0-6.0) 10/21/21 03:40 U Epithel Cells (Auto) 1.0 /HPF (0-13.0) 10/21/21 03:40 Urine Yeast (Budding) Few /HPF 10/21/21 03:40 Coronavirus (PCR) Positive (Negative) A 10/16/21 Unknown Microbiology: Microbiology 10/21/21 09:52 Peripheral/Venous Blood Culture - Preliminary Culture in Progress 10/21/21 02:02 Peripheral/Venous Blood Culture - Preliminary Culture in Progress [place]/IV: Voiding Method Condom Catheter Active Medications - Current Medications Current Medications: Generic Name Dose Route Start Last Admin Trade Name Freq PRN Reason Stop Dose Admin Acetaminophen 650 mg 10/08/21 02:13 10/11/21 13:26 Acetaminophen 325 Mg Tab PO 650 mg Q4H PRN Administration Pain MILD(1-3)/Fever >100.5/HARO Famotidine 20 mg 10/11/21 10:00 10/21/21 09:37 Famotidine 20 Mg Tab PO 20 mg QAM ROYER Administration Heparin Sodium (Porcine) 5,000 unit 10/08/21 10:00 10/21/21 09:37 Heparin 5,000 Unit/1 Ml Vial SUB-Q 5,000 unit Q12HR ROYER Administration Sodium Bicarbonate 150 meq/ 1,150 mls @ 100 mls/hr 10/21/21 02:00 10/21/21 14:59 Dextrose IV 100 mls/hr DIRECT ROYER Administration Ceftriaxone Sodium 1 gm in 50 mls @ 100 mls/hr 10/21/21 10:00 10/21/21 14:10 Rocephin/Ns 1 Gm/50 Ml IV 100 mls/hr Q24HR ROYER Administration Protocol Insulin Human Lispro 0 unit 10/08/21 11:30 10/21/21 17:22 Insulin Lispro 100 Unit/Ml SUB-Q 4 unit ACHS ROYER Administration Protocol Lorazepam 2 mg 10/08/21 15:48 10/08/21 15:00 Lorazepam 2 Mg/Ml Vial IV 2 mg Q3H PRN Administration Agitation Ondansetron HCl 4 mg 10/08/21 02:13 Ondansetron 4 Mg/2 Ml Inj IV Q8H PRN Nausea And Vomiting Oxycodone/Acetaminophen 1 tab 10/08/21 02:13 10/21/21 13:40 Oxycodone /Acetaminophen 5-325mg Tab PO 1 tab Q6H PRN Administration Pain, Moderate (4-6) Sodium Chloride 10 ml 10/08/21 10:00 10/20/21 23:23 Sodium Chloride 0.9% 10 Ml Flush Syringe IV Not Given BID ROYER Sodium Chloride 10 ml 10/19/21 14:31 10/20/21 23:18 Sodium Chloride 0.9% 50 Ml Ivpb IV 10 ml PRN PRN Administration FLUSH Nutrition/Malnutrition Assess - Dietary Evaluation Nutrition/Malnutrition Findings: Nutrition Notes Start: 10/08/21 09:33 Freq: Status: Active Protocol: Document 10/20/21 10:35 ROGERIO (Rec: 10/20/21 10:54 ROGERIO [id number]) Nutrition Notes Initial or Follow up Reassessment Current Diagnosis Acute Kidney Injury,Diabetes, Hypertension,Malnutrition, Stroke Other Pertinent Diagnosis COVID-19, Pneumonia, Hypernkalemia, Leukocytosis. Current Diet Cardiac/Consistent Carbohydrates Diet (since D ), D Suppl (D 10/09). Labs/Tests 10/19: K 5.5, CO2 20, BUN 42, Crea 1.6, Glu 203. Pertinent Medications 10/20: Insulin, others nutritionally unremarkable. Height 5 ft 7 in Weight 82.5 kg [place] Body Weight (kg) 67.27 BMI 28.5 Weight change and time frame 3.2 Kg body weight loss in 1 week reported. Weight Status Overweight Subjective/Other Information RD consult for routine F/U on dietary intake assessment. Pt's PO intake of meals has been Good (75-100%), according to ADL notes. Percent of energy/protein needs met: Prescribed Cardiac/Consistent Carbohydrates Diet provides for energy/protein needs (1, 977 Kcal/86 g) during LOS; additionally, Dietary Supplements will compensate for possible Poor PO intake of meals with 660 Kcal and 30 g of protein. GI Symptoms None Food Allergy No Skin Integrity/Comment Redness, Area of concern. Current % PO Good (75-100%) Minimum of two criteria No Is patient on ventilator? No Is Patient Ambulatory and/or Out of Bed No REE-([facility]-confined to bed) 1917.120 Calculation Used for Recommendations 70-80% of EEN Additional Notes 15-20 Kcal/Kg ABW (1,342-1,534 Kcal). Protein: 1.2-2 g/Kg; 98-164 g/ day. Fluids: 1 ml/Kcal, or as per MD. Nutrition Intervention Change Diet Order: Continue Cardiac/Consistent Carbohydrates Diet Add Supplement/Snack (indicate name/kcal Continue 8 fl oz Glucerna; TID /protein ) . Provides kCal: 660 Provides Protein (gm) 30 Goal #1 Compensate, through dietary supplementation, for possible poor or insufficient PO intake of meals during LOS. Goal #2 Maintain body weight within +/ -3% of admission body weight during LOS. Follow-Up By: 10/27/21 Additional Comments Continue monitoring food tolerance, %PO intake of meals , and BM.
[2021-10-22] MEDS ORDERED: LORazepam 0.5 MG TAB PO PRN (05:24)
[2021-10-22] MEDS: SODIUM BICARBONATE 150 MEQ in DEXTROSE 5% IN WATER 1,000 ML IV SCH (06:22)
[2021-10-22] MEDS: INSULIN LISPRO 100 UNIT/ML SUB-Q SCH ×3 (08:31→16:45)
[2021-10-22] MEDS: FAMOTIDINE 20 MG TAB PO SCH ×3 (09:11→09:13)
[2021-10-22] MEDS: cefTRIAXone/NS 1 GM/50 ML 1 GM/50 ML BAG IV SCH (09:14)
[2021-10-22] MEDS: HEPARIN 5,000 UNIT/1 ML VIAL SUB-Q SCH (09:14)
[2021-10-22 09:36] LABS: Calcium 8.1 mg/dL (8.4-10.2)
[2021-10-22] MEDS ORDERED: SODIUM POLYSTYRENE 15 GM/60 ML ORAL LIQD PO NR (10:30)
--- NOTE | 2021-10-22 13:40 | Progress Note ---
Assessment and Plan 1. Acute kidney injury: Likely vasomotor JAYME, vasomotor. UA negative for protein and blood. Continue IV fluids. Monitor renal function. Creatinine level is improving. Avoid nephrotoxic agents. Meds dosage based on GFR. 2. FEN: Hypernatremia, improved, monitor. Hyperkalemia, Kayexalate ordered. Monitor lytes and volume status. 3. COVID-9 infection: PCR test positive. Asymptomatic, on room air, chest x-ray unremarkable. 4. History of CVA and TBI 5. Diabetes mellitus type 2: Hemoglobin A1c 5.9 6. Leukocytosis. 7. Hypertension: Monitor BP. Subjective: Patient was seen and examined at the bedside. Doing ok. Examination: General appearance: well-developed, appears stated age, no distress HEENT: atraumatic, TIM Neck: trachea midline Respiratory: diminished breath sounds bilaterally Heart: S1S2, regular, no murmur Abdomen: obese, soft, bowel sounds heard, NT, appears distended Integumentary: no obvious rash noted Neurologic: alert, conversing, moving ext, confused Ext: no edema noted Subjective Date of service: 10/22/21 Principal diagnosis: Hyper natremia, JAYME Objective - Vital Signs Vital signs: Vital Signs - 12hr 10/22/21 10/22/21 05:37 07:04 Temperature 97.8 F Pulse Rate 84 Respiratory 18 Rate Blood Pressure 119/77 O2 Sat by Pulse 100 98 Oximetry - Lab 10/23/21 07:34 10/23/21 07:34 Most recent lab results Calcium 8.1 mg/dL (8.4-10.2) L 10/22/21 07:37 Medications & Allergies - Medications Allergies/Adverse Reactions: Allergies No Known Allergies Allergy (Verified 11/26/18 01:03) Home Medications: Home Medications Medication Instructions Recorded Confirmed Last Taken Type Buspirone HCl [busPIRone] 15 mg PO QDAY #30 10/12/21 Unknown Rx Citalopram [Celexa] 20 mg PO QDAY #30 10/12/[address] [Depakote Dr] 250 mg PO QDAY #30 10/12/21 Unknown Rx Duloxetine HCl [Cymbalta] 40 mg PO QDAY #30 10/12/21 Unknown Rx Famotidine [Pepcid] 20 mg PO BID #60 10/12/21 Unknown Rx Insulin Detemir [Levemir Flextouch] 20 unit SQ HS #1 vial 10/12/21 Unknown Rx Lispro Insulin [HumaLOG] 5 unit SQ BID #1 vial 10/12/21 Unknown Rx Memantine 10 mg PO QDAY #30 10/12/21 Unknown Rx lisinopriL [Lisinopril] 10 mg PO QDAY #30 10/12/21 Unknown Rx Acetaminophen [Acetaminophen TAB] 650 mg PO Q4H PRN tablet 10/15/21 Unknown Rx Famotidine [Pepcid] 20 mg PO QAM tablet 10/15/21 Unknown Rx Active Medications: Generic Name Dose Route Start Last Admin Trade Name Freq PRN Reason Stop Dose Admin Acetaminophen 650 mg 10/08/21 02:13 10/11/21 13:26 Acetaminophen 325 Mg Tab PO 650 mg Q4H PRN Administration Pain MILD(1-3)/Fever >100.5/HARO Hydrocodone Bitart/Acetaminophen 7.5 mg 10/22/21 05:24 Hydrocodone/Acetaminophen [id number] Oral Liqd PO Q6H PRN Pain, Moderate (4-6) Famotidine 20 mg 10/11/21 10:00 10/22/21 09:13 Famotidine 20 Mg Tab PO 20 mg QAM ROYER Administration Heparin Sodium (Porcine) 5,000 unit 10/08/21 10:00 10/22/21 09:14 Heparin 5,000 Unit/1 Ml Vial SUB-Q 5,000 unit Q12HR ROYER Administration Sodium Bicarbonate 150 meq/ 1,150 mls @ 100 mls/hr 10/21/21 02:00 10/22/21 06:22 Dextrose IV 100 mls/hr DIRECT ROYER Administration Ceftriaxone Sodium 1 gm in 50 mls @ 100 mls/hr 10/21/21 10:00 10/22/21 09:14 Rocephin/Ns 1 Gm/50 Ml IV 100 mls/hr Q24HR ROYER Administration Protocol Insulin Human Lispro 0 unit 10/08/21 11:30 10/22/21 11:37 Insulin Lispro 100 Unit/Ml SUB-Q 4 unit ACHS ROYER Administration Protocol Lorazepam 0.5 mg 10/22/21 05:24 Lorazepam 0.5 Mg Tab PO BID PRN Agitation Ondansetron HCl 4 mg 10/08/21 02:13 Ondansetron 4 Mg/2 Ml Inj IV Q8H PRN Nausea And Vomiting Sodium Chloride 10 ml 10/08/21 10:00 10/21/21 22:50 Sodium Chloride 0.9% 10 Ml Flush Syringe IV Not Given BID ROYER Sodium Chloride 10 ml 10/19/21 14:31 10/20/21 23:18 Sodium Chloride 0.9% 50 Ml Ivpb IV 10 ml PRN PRN Administration FLUSH Sodium Polystyrene Sulfonate 30 gm 10/22/21 10:30 10/22/21 10:54 Sodium Polystyrene 15 Gm/60 Ml Oral Liqd PO 10/22/21 15:00 15 gm ONCE@1030 NR Administration
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
[2021-10-23] MEDS: INSULIN LISPRO 100 UNIT/ML SUB-Q SCH ×8 (01:41→23:20)
[2021-10-23] MEDS: HEPARIN 5,000 UNIT/1 ML VIAL SUB-Q SCH ×3 (01:42→23:19)
[2021-10-23] MEDS: HYDROcodone/Acetaminophen 7.5-325MG-15ML ORAL LIQD PO PRN ×3 (01:42→23:19)
[2021-10-23] MEDS: SODIUM BICARBONATE 150 MEQ in DEXTROSE 5% IN WATER 1,000 ML IV SCH (02:13)
[2021-10-23] MEDS: AMPICILLIN 500 MG CAP PO SCH ×3 (06:34→23:19)
[2021-10-23 07:59] LABS: Basophils # (Auto) 0.1 K/mm3 (0.0-0.1); Basophils % (Auto) 1.2 % (0.0-1.8); Eosinophils # (Auto) 0.3 K/mm3 (0.0-0.4); Eosinophils % (Auto) 4.2 % (0.0-4.3); Hematocrit 24.6 % (35.5-45.6); Hemoglobin 7.5 gm/dl (11.8-15.2); Lymphocytes # (Auto) 1.4 K/mm3 (1.2-5.4); Lymphocytes % (Auto) 17.6 % (13.4-35.0); Mean Corpuscular HGB Conc 31 % (32-34); Mean Corpuscular Volume 91 fl (84-94); Monocytes # (Auto) 0.7 K/mm3 (0.0-0.8); Monocytes % (Auto) 8.2 % (0.0-7.3); Platelet Count 500 K/mm3 (140-440); Red Cell Distribution Width 16.7 % (13.2-15.2)
[2021-10-23 08:23] LABS: Alanine Aminotransferase 46 units/L (7-56); Albumin 2.6 g/dL (3.9-5); BUN/Creatinine Ratio 27; Blood Urea Nitrogen 41 mg/dL (9-20); Calcium 8.7 mg/dL (8.4-10.2); Hemolysis Index 0
[2021-10-23] MEDS: FAMOTIDINE 20 MG TAB PO SCH (09:15)
--- NOTE | 2021-10-23 10:09 | Progress Note ---
Assessment and Plan 1. Acute kidney injury: Likely vasomotor JAYME, vasomotor. UA negative for protein and blood. Continue IV fluids. Monitor renal function. Creatinine level is improving. Avoid nephrotoxic agents. Meds dosage based on GFR. 2. FEN: Hypernatremia, improved, monitor. Hyperkalemia, improved. Monitor lytes and volume status. 3. COVID-9 infection: PCR test positive. Asymptomatic, on room air, chest x-ray unremarkable. 4. History of CVA and TBI 5. Diabetes mellitus type 2: Hemoglobin A1c 5.9 6. Leukocytosis: Improved. 7. Hypertension: Monitor BP. Subjective: Patient was seen and examined at the bedside. Doing ok. Spoke with nurse to do bladder scan and straight cath if volume >400 ml. Examination: General appearance: well-developed, appears stated age, no distress HEENT: atraumatic, TIM Neck: trachea midline Respiratory: diminished breath sounds bilaterally Heart: S1S2, regular, no murmur Abdomen: obese, soft, bowel sounds heard, NT, distended bladder Integumentary: no obvious rash noted Neurologic: alert, conversing, moving ext, confused Ext: no edema noted Subjective Date of service: 10/23/21 Principal diagnosis: Hyper natremia, JAYME Objective - Vital Signs Vital signs: Vital Signs - 12hr 10/23/21 10/23/21 05:10 08:42 Temperature 97.5 F L Pulse Rate 93 H Respiratory 20 Rate Blood Pressure 125/75 O2 Sat by Pulse 96 95 Oximetry - Lab 10/23/21 07:34 10/23/21 07:34 Most recent lab results Calcium 8.7 mg/dL (8.4-10.2) 10/23/21 07:34 Medications & Allergies - Medications Allergies/Adverse Reactions: Allergies No Known Allergies Allergy (Verified 11/26/18 01:03) Home Medications: Home Medications Medication Instructions Recorded Confirmed Last Taken Type Buspirone HCl [busPIRone] 15 mg PO QDAY #30 10/12/21 Unknown Rx Citalopram [Celexa] 20 mg PO QDAY #30 10/12/[address] [Depakote Dr] 250 mg PO QDAY #30 10/12/21 Unknown Rx Duloxetine HCl [Cymbalta] 40 mg PO QDAY #30 10/12/21 Unknown Rx Famotidine [Pepcid] 20 mg PO BID #60 10/12/21 Unknown Rx Insulin Detemir [Levemir Flextouch] 20 unit SQ HS #1 vial 10/12/21 Unknown Rx Lispro Insulin [HumaLOG] 5 unit SQ BID #1 vial 10/12/21 Unknown Rx Memantine 10 mg PO QDAY #30 10/12/21 Unknown Rx lisinopriL [Lisinopril] 10 mg PO QDAY #30 10/12/21 Unknown Rx Acetaminophen [Acetaminophen TAB] 650 mg PO Q4H PRN tablet 10/15/21 Unknown Rx Famotidine [Pepcid] 20 mg PO QAM tablet 10/15/21 Unknown Rx Active Medications: Generic Name Dose Route Start Last Admin Trade Name Freq PRN Reason Stop Dose Admin Acetaminophen 650 mg 10/08/21 02:13 10/11/21 13:26 Acetaminophen 325 Mg Tab PO 650 mg Q4H PRN Administration Pain MILD(1-3)/Fever >100.5/HARO Hydrocodone Bitart/Acetaminophen 7.5 mg 10/22/21 05:24 10/23/21 01:42 Hydrocodone/Acetaminophen [id number] Oral Liqd PO 7.5 mg Q6H PRN Administration Pain, Moderate (4-6) Ampicillin 500 mg 10/23/21 06:00 10/23/21 06:34 Ampicillin 500 Mg Cap PO 500 mg Q8H ROYER Administration Protocol Famotidine 20 mg 10/11/21 10:00 10/23/21 09:15 Famotidine 20 Mg Tab PO 20 mg QAM ROYER Administration Heparin Sodium (Porcine) 5,000 unit 10/08/21 10:00 10/23/21 09:15 Heparin 5,000 Unit/1 Ml Vial SUB-Q 5,000 unit Q12HR ROYER Administration Sodium Bicarbonate 150 meq/ 1,150 mls @ 100 mls/hr 10/21/21 02:00 10/23/21 02:13 Dextrose IV 100 mls/hr DIRECT ROYER Administration Insulin Human Lispro 0 unit 10/08/21 11:30 10/23/21 09:14 Insulin Lispro 100 Unit/Ml SUB-Q 3 unit ACHS ROYER Administration Protocol Lorazepam 0.5 mg 10/22/21 05:24 Lorazepam 0.5 Mg Tab PO BID PRN Agitation Ondansetron HCl 4 mg 10/08/21 02:13 Ondansetron 4 Mg/2 Ml Inj IV Q8H PRN Nausea And Vomiting Sodium Chloride 10 ml 10/08/21 10:00 10/23/21 09:04 Sodium Chloride 0.9% 10 Ml Flush Syringe IV Not Given BID ROYER Sodium Chloride 10 ml 10/19/21 14:31 10/20/21 23:18 Sodium Chloride 0.9% 50 Ml Ivpb IV 10 ml PRN PRN Administration FLUSH
--- NOTE | 2021-10-23 11:16 | Consultation ---
History of Present Illness - Reason for Consult Consult date: 10/23/21 Reason for consult: confusion - History of Present Psychiatric Illness The patient was seen today. He is lying in bed awake. He is a/o x 2. He is calm and cooperative. The patient says he "was a little out of it. My meds weren't correct." He says he was having trouble concentrating. He says "but I thought I was leaving today." The patient says he lives with his oracle e business developer. He denies SI/HI or hallucinations of any kind. He says "at one point I believe I was hallucinating but not now." The patient says he is . He denies illicit drug use, alcohol or nicotine. REVIEW OF SYSTEMS Constitutional: Negative for weight loss ENT: Negative for stridor Respiratory: Negative for cough or hemoptysis All other systems reviewed and are negative MENTAL STATUS EXAMINATION General Appearance and Behavior: Age appropriate, good hygiene, wearing a ppropriate clothes. calm, cooperative, polite Cooperation: Cooperative Psychomotor Behavior: Psychomotor normal Mood: better Affect and affective range: Congruent to stated mood Thought Process: circumstantial Thought Content:None Speech: Normal tone and pace Suicidal Ideation: Denies Homicidal Ideation: Denies Hallucinations: Denies Delusions: Denies Impulse Control: Limited Insight and Judgment: Limited insight and fair judgment Memory: Limited Attention: distracted Orientation: a/o x 2 Assessment (1) Mental Health Evaluation Current Visit: Yes Status: Acute Treatment Plan No meds at this time Medical: per primary Disposition: Do not recommend acute psychiatric inpatient treatment Will sign off. Thanks Case staffed with Dr. Martin Medications and Allergies Allergies Allergy/AdvReac Type Severity Reaction Status Date / Time No Known Allergies Allergy Verified 11/26/18 01:03 Home Medications Medication Instructions Recorded Confirmed Last Taken Type Buspirone HCl [busPIRone] 15 mg PO QDAY #30 10/12/21 Unknown Rx Citalopram [Celexa] 20 mg PO QDAY #30 10/12/[address] [Depakote Dr] 250 mg PO QDAY #30 10/12/21 Unknown Rx Duloxetine HCl [Cymbalta] 40 mg PO QDAY #30 10/12/21 Unknown Rx Famotidine [Pepcid] 20 mg PO BID #60 10/12/21 Unknown Rx Insulin Detemir [Levemir Flextouch] 20 unit SQ HS #1 vial 10/12/21 Unknown Rx Lispro Insulin [HumaLOG] 5 unit SQ BID #1 vial 10/12/21 Unknown Rx Memantine 10 mg PO QDAY #30 10/12/21 Unknown Rx lisinopriL [Lisinopril] 10 mg PO QDAY #30 10/12/21 Unknown Rx Acetaminophen [Acetaminophen TAB] 650 mg PO Q4H PRN tablet 10/15/21 Unknown Rx Famotidine [Pepcid] 20 mg PO QAM tablet 10/15/21 Unknown Rx Active Meds: Active Medications Acetaminophen (Acetaminophen 325 Mg Tab) 650 mg PO Q4H PRN PRN Reason: Pain MILD(1-3)/Fever >100.5/HAOR Last Admin: 10/11/21 13:26 Dose: 650 mg Hydrocodone Bitart/Acetaminophen (Hydrocodone/Acetaminophen [id number] Oral Liqd) 7.5 mg PO Q6H PRN PRN Reason: Pain, Moderate (4-6) Last Admin: 10/23/21 01:42 Dose: 7.5 mg Ampicillin (Ampicillin 500 Mg Cap) 500 mg PO Q8H ROYER; Protocol Last Admin: 10/23/21 06:34 Dose: 500 mg Famotidine (Famotidine 20 Mg Tab) 20 mg PO QAM ROYER Last Admin: 10/23/21 09:15 Dose: 20 mg Heparin Sodium (Porcine) (Heparin 5,000 Unit/1 Ml Vial) 5,000 unit SUB-Q Q12HR ROYER Last Admin: 10/23/21 09:15 Dose: 5,000 unit Sodium Bicarbonate 150 meq/ (Dextrose) 1,150 mls @ 100 mls/hr IV DIRECT ROYER Last Admin: 10/23/21 02:13 Dose: 100 mls/hr Insulin Human Lispro (Insulin Lispro 100 Unit/Ml) 0 unit SUB-Q ACHS ROYER; Protocol Last Admin: 10/23/21 09:14 Dose: 3 unit Lorazepam (Lorazepam 0.5 Mg Tab) 0.5 mg PO BID PRN PRN Reason: Agitation Ondansetron HCl (Ondansetron 4 Mg/2 Ml Inj) 4 mg IV Q8H PRN PRN Reason: Nausea And Vomiting Sodium Chloride (Sodium Chloride 0.9% 10 Ml Flush Syringe) 10 ml IV BID ROYER Last Admin: 10/23/21 09:04 Dose: Not Given Sodium Chloride (Sodium Chloride 0.9% 50 Ml Ivpb) 10 ml IV PRN PRN PRN Reason: FLUSH Last Admin: 10/20/21 23:18 Dose: 10 ml Mental Status Exam - Vital signs Last Vital Signs Temp 97.5 F L 10/23/21 05:10 Pulse 93 H 10/23/21 05:10 Resp 20 10/23/21 05:10 BP 125/75 10/23/21 05:10 Pulse Ox 95 10/23/21 08:42 Results Result Diagrams: 10/23/21 07:34 10/23/21 07:34 Abnormal lab results 10/22/21 10/22/21 10/22/21 Range/Units 11:19 16:36 22:05 RBC (3.65-5.03) M/mm3 Hgb (11.8-15.2) gm/dl Hct (35.5-45.6) % MCHC (32-34) % RDW (13.2-15.2) % Plt Count (140-440) K/mm3 [place] % (Auto) (0.0-7.3) % BUN (9-20) mg/dL Creatinine (0.8-1.3) mg/dL Glucose (75-100) mg/dL POC Glucose 200 H 225 H 235 H (70-105) mg/dL Alkaline Phosphatase (35-129) units/L Total Protein (6.3-8.2) g/dL Albumin (3.9-5) g/dL 10/23/21 10/23/21 10/23/21 Range/Units 07:34 07:34 07:43 RBC 2.70 L (3.65-5.03) M/mm3 Hgb 7.5 L (11.8-15.2) gm/dl Hct 24.6 L (35.5-45.6) % MCHC 31 L (32-34) % RDW 16.7 H (13.2-15.2) % Plt Count 500 H (140-440) K/mm3 [place] % (Auto) 8.2 H (0.0-7.3) % BUN 41 H (9-20) mg/dL Creatinine 1.5 H (0.8-1.3) mg/dL Glucose 201 H (75-100) mg/dL POC Glucose 181 H (70-105) mg/dL Alkaline Phosphatase 627 H (35-129) units/L Total Protein 5.8 L (6.3-8.2) g/dL Albumin 2.6 L (3.9-5) g/dL 10/23/21 Range/Units 11:01 RBC (3.65-5.03) M/mm3 Hgb (11.8-15.2) gm/dl Hct (35.5-45.6) % MCHC (32-34) % RDW (13.2-15.2) % Plt Count (140-440) K/mm3 [place] % (Auto) (0.0-7.3) % BUN (9-20) mg/dL Creatinine (0.8-1.3) mg/dL Glucose (75-100) mg/dL POC Glucose 193 H (70-105) mg/dL Alkaline Phosphatase (35-129) units/L Total Protein (6.3-8.2) g/dL Albumin (3.9-5) g/dL All other labs normal.
[2021-10-23 15:33] LABS: Iron 32 ug/dL (49-181); Total Iron Binding Capacity 155 mcg/dL (250-450)
--- NOTE | 2021-10-23 16:21 | Ultrasound Report ---
ULTRASOUND RENAL INDICATION / CLINICAL INFORMATION: JAYME. COMPARISON: Ultrasound abdomen 06/06/2021 FINDINGS: RIGHT KIDNEY: Length = 11.8 cm. [normal > 9 cm] - Parenchymal Thickness = 1.7 cm. [normal > 1.5 cm] - Echogenicity: Normal. - Hydronephrosis: There is mild hydronephrosis - Cyst or mass: No significant abnormality. - Stones: None seen. LEFT KIDNEY: Length = 11.0 cm. [normal > 9 cm] - Parenchymal Thickness = 1.7 cm. [normal > 1.5 cm] - Echogenicity: Normal. - Hydronephrosis: None. - Cyst or mass: No significant abnormality. - Stones: None seen. URINARY BLADDER: The bladder is empty and poorly evaluated but no gross abnormality FREE FLUID: None. ADDITIONAL FINDINGS: Numerous shadowing stones in the gallbladder. No gallbladder wall thickening. IMPRESSION: Mild right hydronephrosis is identified. No evidence for nephrolithiasis. No obvious obstructing les ion in the right ureter on ultrasound. Consider further evaluation with CT stone protocol. Cholelithiasis. Signer Name: Wally Mijares Jr, MD Signed: 10/23/2021 4:17 PM Workstation Name: [id number]
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
[2021-10-24] MEDS: SODIUM BICARBONATE 150 MEQ in DEXTROSE 5% IN WATER 1,000 ML IV SCH (06:02)
[2021-10-24] MEDS: AMPICILLIN 500 MG CAP PO SCH ×3 (06:02→21:46)
[2021-10-24] MEDS: INSULIN LISPRO 100 UNIT/ML SUB-Q SCH ×4 (07:30→21:47)
[2021-10-24 09:45] LABS: Calcium 8.5 mg/dL (8.4-10.2)
[2021-10-24] MEDS: HEPARIN 5,000 UNIT/1 ML VIAL SUB-Q SCH ×2 (10:56→21:47)
[2021-10-24] MEDS: FAMOTIDINE 20 MG TAB PO SCH (10:57)
[2021-10-24] MEDS: TAMSULOSIN 0.4 MG CAP PO SCH (10:57)
--- NOTE | 2021-10-24 13:20 | Progress Note ---
Assessment and Plan 1. Acute kidney injury: Likely vasomotor JAYME, vasomotor. UA negative for protein and blood. Continue IV fluids. Monitor renal function. Creatinine level is improving. Avoid nephrotoxic agents. Meds dosage based on GFR. 2. FEN: Hypernatremia, improved, monitor. Hyperkalemia, improved. Monitor lytes and volume status. 3. COVID-9 infection: PCR test positive. Asymptomatic, chest x-ray unremarkable. 4. History of CVA and TBI 5. Diabetes mellitus type 2: Hemoglobin A1c 5.9 6. Bladder obstruction: S/p matta catheter. 7. Hypertension: Monitor BP. Subjective: Patient was seen and examined at the bedside. Doing ok. Examination: General appearance: well-developed, appears stated age, no distress HEENT: atraumatic, TIM Neck: trachea midline Respiratory: diminished breath sounds bilaterally Heart: S1S2, regular, no murmur Abdomen: obese, soft, bowel sounds heard, NT Integumentary: no obvious rash noted Neurologic: alert, conversing, moving ext, confused Ext: no edema noted : Matta catheter Subjective Date of service: 10/24/21 Principal diagnosis: Hyper natremia, JAYME Objective - Vital Signs Vital signs: Vital Signs - 12hr 10/24/21 03:43 Temperature 98.3 F Pulse Rate 94 H Respiratory 18 Rate Blood Pressure 134/75 O2 Sat by Pulse 94 Oximetry - Lab 10/25/21 08:08 10/25/21 08:08 Most recent lab results Calcium 8.5 mg/dL (8.4-10.2) 10/24/21 07:42 Medications & Allergies - Medications Allergies/Adverse Reactions: Allergies No Known Allergies Allergy (Verified 11/26/18 01:03) Home Medications: Home Medications Medication Instructions Recorded Confirmed Last Taken Type Buspirone HCl [busPIRone] 15 mg PO QDAY #30 10/12/21 Unknown Rx Citalopram [Celexa] 20 mg PO QDAY #30 10/12/[address] [Depakote Dr] 250 mg PO QDAY #30 10/12/21 Unknown Rx Duloxetine HCl [Cymbalta] 40 mg PO QDAY #30 10/12/21 Unknown Rx Famotidine [Pepcid] 20 mg PO BID #60 10/12/21 Unknown Rx Insulin Detemir [Levemir Flextouch] 20 unit SQ HS #1 vial 10/12/21 Unknown Rx Lispro Insulin [HumaLOG] 5 unit SQ BID #1 vial 10/12/21 Unknown Rx Memantine 10 mg PO QDAY #30 10/12/21 Unknown Rx lisinopriL [Lisinopril] 10 mg PO QDAY #30 10/12/21 Unknown Rx Acetaminophen [Acetaminophen TAB] 650 mg PO Q4H PRN tablet 10/15/21 Unknown Rx Famotidine [Pepcid] 20 mg PO QAM tablet 10/15/21 Unknown Rx Active Medications: Generic Name Dose Route Start Last Admin Trade Name Freq PRN Reason Stop Dose Admin Acetaminophen 650 mg 10/08/21 02:13 10/11/21 13:26 Acetaminophen 325 Mg Tab PO 650 mg Q4H PRN Administration Pain MILD(1-3)/Fever >100.5/HARO Hydrocodone Bitart/Acetaminophen 7.5 mg 10/22/21 05:24 10/23/21 23:19 Hydrocodone/Acetaminophen [id number] Oral Liqd PO 7.5 mg Q6H PRN Administration Pain, Moderate (4-6) Ampicillin 500 mg 10/23/21 06:00 10/24/21 06:02 Ampicillin 500 Mg Cap PO 500 mg Q8H ROYER Administration Protocol Famotidine 20 mg 10/11/21 10:00 10/24/21 10:57 Famotidine 20 Mg Tab PO 20 mg QAM ROYER Administration Heparin Sodium (Porcine) 5,000 unit 10/08/21 10:00 10/24/21 10:56 Heparin 5,000 Unit/1 Ml Vial SUB-Q 5,000 unit Q12HR ROYER Administration Sodium Bicarbonate 150 meq/ 1,150 mls @ 100 mls/hr 10/21/21 02:00 10/24/21 06:02 Dextrose IV 100 mls/hr DIRECT ROYER Administration Insulin Human Lispro 0 unit 10/08/21 11:30 10/24/21 07:30 Insulin Lispro 100 Unit/Ml SUB-Q Not Given ACHS ROYER Protocol Lorazepam 0.5 mg 10/22/21 05:24 Lorazepam 0.5 Mg Tab PO BID PRN Agitation Ondansetron HCl 4 mg 10/08/21 02:13 Ondansetron 4 Mg/2 Ml Inj IV Q8H PRN Nausea And Vomiting Sodium Chloride 10 ml 10/08/21 10:00 10/24/21 10:58 Sodium Chloride 0.9% 10 Ml Flush Syringe IV 10 ml BID ROYER Administration Sodium Chloride 10 ml 10/19/21 14:31 10/20/21 23:18 Sodium Chloride 0.9% 50 Ml Ivpb IV 10 ml PRN PRN Administration FLUSH Tamsulosin HCl 0.4 mg 10/24/21 10:00 10/24/21 10:57 Tamsulosin 0.4 Mg Cap PO 0.4 mg QDAY ROYER Administration
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
[2021-10-25] MEDS: AMPICILLIN 500 MG CAP PO SCH (05:14)
[2021-10-25] MEDS: SODIUM BICARBONATE 150 MEQ in DEXTROSE 5% IN WATER 1,000 ML IV SCH (06:01)
[2021-10-25] MEDS: INSULIN LISPRO 100 UNIT/ML SUB-Q SCH ×4 (07:30→21:33)
[2021-10-25 08:59] LABS: Basophils # (Auto) 0.1 K/mm3 (0.0-0.1); Basophils % (Auto) 1.2 % (0.0-1.8); Eosinophils # (Auto) 0.5 K/mm3 (0.0-0.4); Hematocrit 25.4 % (35.5-45.6); Hemoglobin 8.4 gm/dl (11.8-15.2); Lymphocytes # (Auto) 1.6 K/mm3 (1.2-5.4); Lymphocytes % (Auto) 17.3 % (13.4-35.0); Mean Corpuscular HGB Conc 33 % (32-34); Mean Corpuscular Volume 92 fl (84-94); Monocytes # (Auto) 0.7 K/mm3 (0.0-0.8); Monocytes % (Auto) 7.4 % (0.0-7.3); Platelet Count 498 K/mm3 (140-440); Red Blood Count 2.76 M/mm3 (3.65-5.03); Red Cell Distribution Width 16.2 % (13.2-15.2)
[2021-10-25 09:16] LABS: BUN/Creatinine Ratio 19; Blood Urea Nitrogen 23 mg/dL (9-20); Hemolysis Index 2
[2021-10-25] MEDS: FAMOTIDINE 20 MG TAB PO SCH (10:12)
[2021-10-25] MEDS: TAMSULOSIN 0.4 MG CAP PO SCH (10:12)
[2021-10-25] MEDS: HEPARIN 5,000 UNIT/1 ML VIAL SUB-Q SCH ×2 (10:13→21:33)
[2021-10-25] MEDS: NYSTATIN POWDER 15 GM TP SCH ×2 (13:00→21:33)
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
--- NOTE | 2021-10-25 18:27 | Progress Note ---
Assessment and Plan 1. Acute kidney injury: Likely vasomotor JAYME, vasomotor. UA negative for protein and blood. Renal US showed mild R hydro. Continue IV fluids. Monitor renal function. Creatinine level is improving. Avoid nephrotoxic agents. Meds dosage based on GFR. 2. FEN: Hypernatremia, improved, monitor. Hyperkalemia, improved. Monitor lytes and volume status. 3. COVID-9 infection: PCR test positive. Asymptomatic, chest X-ray unremarkable. 4. History of CVA and TBI 5. Diabetes mellitus type 2: Hemoglobin A1c 5.9 6. Bladder obstruction: S/p matta catheter. 7. Hypertension: Monitor BP. Subjective: Patient was not examined today to limit exposure to Covid-19. However the examination findings from other providers noted. The current and previous medical records are reviewed in detail as are laboratory and imaging data revi ewed when appropriate. Medications being given are also reviewed. In addition the case has been discussed with the attending hospitalist and the nurse when needed. New renal recommendations as above Examination: Subjective Date of service: 10/25/21 Principal diagnosis: Hyper natremia, JAYME Objective - Vital Signs Vital signs: Vital Signs - 12hr 10/25/21 10/25/21 07:37 11:45 Pulse Rate 91 H Respiratory 18 Rate Blood Pressure 148/84 O2 Sat by Pulse 97 96 Oximetry - Lab 10/25/21 08:08 10/25/21 08:08 Most recent lab results Calcium 9.0 mg/dL (8.4-10.2) 10/25/21 08:08 Medications & Allergies - Medications Allergies/Adverse Reactions: Allergies No Known Allergies Allergy (Verified 11/26/18 01:03) Home Medications: Home Medications Medication Instructions Recorded Confirmed Last Taken Type Buspirone HCl [busPIRone] 15 mg PO QDAY #30 10/12/21 Unknown Rx Citalopram [Celexa] 20 mg PO QDAY #30 10/12/21 Unknown Rx Divalproex [Luis Miguel Ponce] 250 mg PO QDAY #30 10/12/21 Unknown Rx Duloxetine HCl [Cymbalta] 40 mg PO QDAY #30 10/12/21 Unknown Rx Famotidine [Pepcid] 20 mg PO BID #60 10/12/21 Unknown Rx Insulin Detemir [Levemir Flextouch] 20 unit SQ HS #1 vial 10/12/21 Unknown Rx Lispro Insulin [HumaLOG] 5 unit SQ BID #1 vial 10/12/21 Unknown Rx Memantine 10 mg PO QDAY #30 10/12/21 Unknown Rx lisinopriL [Lisinopril] 10 mg PO QDAY #30 10/12/21 Unknown Rx Acetaminophen [Acetaminophen TAB] 650 mg PO Q4H PRN tablet 10/15/21 Unknown Rx Famotidine [Pepcid] 20 mg PO QAM tablet 10/15/21 Unknown Rx Active Medications: Generic Name Dose Route Start Last Admin Trade Name Freq PRN Reason Stop Dose Admin Acetaminophen 650 mg 10/08/21 02:13 10/11/21 13:26 Acetaminophen 325 Mg Tab PO 650 mg Q4H PRN Administration Pain MILD(1-3)/Fever >100.5/HARO Hydrocodone Bitart/Acetaminophen 7.5 mg 10/22/21 05:24 10/23/21 23:19 Hydrocodone/Acetaminophen 7.8-656sg-[id number] Oral Liqd PO 7.5 mg Q6H PRN Administration Pain, Moderate (4-6) Famotidine 20 mg 10/11/21 10:00 10/25/21 10:12 Famotidine 20 Mg Tab PO 20 mg QAM ROYER Administration Heparin Sodium (Porcine) 5,000 unit 10/08/21 10:00 10/25/21 10:13 Heparin 5,000 Unit/1 Ml Vial SUB-Q 5,000 unit Q12HR ROYER Administration Sodium Bicarbonate 150 meq/ 1,150 mls @ 100 mls/hr 10/21/21 02:00 10/25/21 06:01 Dextrose IV 100 mls/hr DIRECT ROYER Administration Insulin Human Lispro 0 unit 10/08/21 11:30 10/25/21 11:30 Insulin Lispro 100 Unit/Ml SUB-Q 3 unit ACHS ROYER Administration Protocol Lorazepam 0.5 mg 10/22/21 05:24 Lorazepam 0.5 Mg Tab PO BID PRN Agitation Nystatin 1 applic 10/25/21 13:00 10/25/21 13:00 Nystatin Powder 15 Gm TP 1 applic BID ROYER Administration Ondansetron HCl 4 mg 10/08/21 02:13 Ondansetron 4 Mg/2 Ml Inj IV Q8H PRN Nausea And Vomiting Sodium Chloride 10 ml 10/08/21 10:00 10/25/21 10:12 Sodium Chloride 0.9% 10 Ml Flush Syringe IV 10 ml BID ROYER Administration Sodium Chloride 10 ml 10/19/21 14:31 10/20/21 23:18 Sodium Chloride 0.9% 50 Ml Ivpb IV 10 ml PRN PRN Administration FLUSH Tamsulosin HCl 0.4 mg 10/24/21 10:00 10/25/21 10:12 Tamsulosin 0.4 Mg Cap PO 0.4 mg QDAY ROYER Administration
[2021-10-26] MEDS: INSULIN LISPRO 100 UNIT/ML SUB-Q SCH ×4 (07:30→21:55)
[2021-10-26 08:44] LABS: Calcium 8.9 mg/dL (8.4-10.2)
[2021-10-26 08:46] LABS: Basophils # (Auto) 0.1 K/mm3 (0.0-0.1); Basophils % (Auto) 1.2 % (0.0-1.8); Eosinophils # (Auto) 0.5 K/mm3 (0.0-0.4); Eosinophils % (Auto) 5.9 % (0.0-4.3); Hematocrit 24.9 % (35.5-45.6); Lymphocytes # (Auto) 1.8 K/mm3 (1.2-5.4); Lymphocytes % (Auto) 20.5 % (13.4-35.0); Mean Corpuscular HGB Conc 32 % (32-34); Mean Corpuscular Volume 92 fl (84-94); Monocytes # (Auto) 0.6 K/mm3 (0.0-0.8); Monocytes % (Auto) 6.9 % (0.0-7.3); Platelet Count 498 K/mm3 (140-440); Red Blood Count 2.71 M/mm3 (3.65-5.03); Red Cell Distribution Width 16.3 % (13.2-15.2)
[2021-10-26] MEDS: TAMSULOSIN 0.4 MG CAP PO SCH (10:38)
[2021-10-26] MEDS: FAMOTIDINE 20 MG TAB PO SCH (10:38)
[2021-10-26] MEDS: HEPARIN 5,000 UNIT/1 ML VIAL SUB-Q SCH ×2 (10:38→21:58)
[2021-10-26] MEDS: levoFLOXacin 500 MG TAB PO SCH (10:38)
[2021-10-26] MEDS: NYSTATIN POWDER 15 GM TP SCH ×2 (10:43→21:59)
[2021-10-26] MEDS: HYDROcodone/Acetaminophen 7.5-325MG-15ML ORAL LIQD PO PRN (13:30)
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
[2021-10-27 07:58] LABS: Hematocrit 25.1 % (35.5-45.6); Hemoglobin 8.2 gm/dl (11.8-15.2); Mean Corpuscular HGB Conc 33 % (32-34); Mean Corpuscular Volume 93 fl (84-94); Platelet Count 517 K/mm3 (140-440); Red Blood Count 2.71 M/mm3 (3.65-5.03); Red Cell Distribution Width 15.7 % (13.2-15.2)
--- NOTE | 2021-10-27 08:06 | Progress Note ---
Assessment and Plan 1. Acute kidney injury: Likely vasomotor JAYME, vasomotor. UA negative for protein and blood. Renal US showed mild R hydro. s/p matta catheter. Monitor renal function. Creatinine level is better. Avoid nephrotoxic agents. Meds dosage based on GFR. 2. FEN: Hypernatremia, improved, monitor. Hyperkalemia, Kayexalate as needed, monitor. Monitor lytes and volume status. 3. COVID-9 infection: PCR test positive. Asymptomatic, chest X-ray unremarkable. 4. History of CVA and TBI 5. Diabetes mellitus type 2: Hemoglobin A1c 5.9 6. Bladder obstruction: S/p matta catheter. 7. Hypertension: Monitor BP. Subjective: Patient was not examined today to limit exposure to Covid-19. However the examination findings from other providers noted. The current and previous medical records are reviewed in detail as are laboratory and imaging data reviewed when appropriate. Medications being given are also reviewed. In addition the case has been discussed with the attending hospitalist and the nurse when needed. New renal recommendations as above Examination: Subjective Date of service: 10/26/21 Principal diagnosis: Hyper natremia, JAYME Objective - Vital Signs Vital signs: Vital Signs - 12hr 10/26/21 10/26/21 22:00 22:47 Temperature 98.7 F Pulse Rate 92 H Respiratory 18 20 Rate Blood Pressure 129/72 O2 Sat by Pulse 98 95 Oximetry - Lab 10/27/21 07:00 10/27/21 07:00 Most recent lab results Calcium 8.9 mg/dL (8.4-10.2) 10/26/21 07:35 Medications & Allergies - Medications Allergies/Adverse Reactions: Allergies No Known Allergies Allergy (Verified 11/26/18 01:03) Home Medications: Home Medications Medication Instructions Recorded Confirmed Last Taken Type Buspirone HCl [busPIRone] 15 mg PO QDAY #30 10/12/21 Unknown Rx Citalopram [Celexa] 20 mg PO QDAY #30 10/12/21 Unknown Rx Divalproex [Depakote Dr] 250 mg PO QDAY #30 10/12/21 Unknown Rx Duloxetine HCl [Cymbalta] 40 mg PO QDAY #30 10/12/21 Unknown Rx Famotidine [Pepcid] 20 mg PO BID #60 10/12/21 Unknown Rx Insulin Detemir [Levemir Flextouch] 20 unit SQ HS #1 vial 10/12/21 Unknown Rx Lispro Insulin [HumaLOG] 5 unit SQ BID #1 vial 10/12/21 Unknown Rx Memantine 10 mg PO QDAY #30 10/12/21 Unknown Rx lisinopriL [Lisinopril] 10 mg PO QDAY #30 10/12/21 Unknown Rx Acetaminophen [Acetaminophen TAB] 650 mg PO Q4H PRN tablet 10/15/21 Unknown Rx Famotidine [Pepcid] 20 mg PO QAM tablet 10/15/21 Unknown Rx Active Medications: Generic Name Dose Route Start Last Admin Trade Name Freq PRN Reason Stop Dose Admin Acetaminophen 650 mg 10/08/21 02:13 10/11/21 13:26 Acetaminophen 325 Mg Tab PO 650 mg Q4H PRN Administration Pain MILD(1-3)/Fever >100.5/HARO Hydrocodone Bitart/Acetaminophen 7.5 mg 10/22/21 05:24 10/26/21 13:30 Hydrocodone/Acetaminophen [id number] Oral Liqd PO 7.5 mg Q6H PRN Administration Pain, Moderate (4-6) Famotidine 20 mg 10/11/21 10:00 10/26/21 10:38 Famotidine 20 Mg Tab PO 20 mg QAM ROYER Administration Heparin Sodium (Porcine) 5,000 unit 10/08/21 10:00 10/26/21 21:58 Heparin 5,000 Unit/1 Ml Vial SUB-Q 5,000 unit Q12HR ROYER Administration Insulin Human Lispro 0 unit 10/08/21 11:30 10/26/21 21:55 Insulin Lispro 100 Unit/Ml SUB-Q 3 unit ACHS ROYER Administration Protocol Levofloxacin 500 mg 10/26/21 10:00 10/26/21 10:38 Levofloxacin 500 Mg Tab PO 10/30/21 10:01 500 mg DAILY ROYER Administration Protocol Lorazepam 0.5 mg 10/22/21 05:24 Lorazepam 0.5 Mg Tab PO BID PRN Agitation Nystatin 1 applic 10/25/21 13:00 10/26/21 21:59 Nystatin Powder 15 Gm TP 1 applic BID ROYER Administration Sodium Chloride 10 ml 10/08/21 10:00 10/26/21 22:00 Sodium Chloride 0.9% 10 Ml Flush Syringe IV 10 ml BID ROYER Administration Sodium Chloride 10 ml 10/19/21 14:31 10/20/21 23:18 Sodium Chloride 0.9% 50 Ml Ivpb IV 10 ml PRN PRN Administration FLUSH Tamsulosin HCl 0.4 mg 10/24/21 10:00 10/26/21 10:38 Tamsulosin 0.4 Mg Cap PO 0.4 mg QDAY ROYER Administration
[2021-10-27] MEDS: INSULIN LISPRO 100 UNIT/ML SUB-Q SCH ×4 (08:10→23:19)
[2021-10-27 08:17] LABS: Calcium 8.7 mg/dL (8.4-10.2)
[2021-10-27] MEDS: TAMSULOSIN 0.4 MG CAP PO SCH (09:53)
[2021-10-27] MEDS: FAMOTIDINE 20 MG TAB PO SCH (09:53)
[2021-10-27] MEDS: levoFLOXacin 500 MG TAB PO SCH (09:54)
[2021-10-27] MEDS: HEPARIN 5,000 UNIT/1 ML VIAL SUB-Q SCH ×2 (09:55→22:20)
[2021-10-27 10:35] LABS: Anisocytosis 1+; Platelet Estimate Consistent w Auto; Total Cells Counted 100
[2021-10-27] MEDS ORDERED: VANCOMYCIN 250 MG/10 ML ORAL LIQD PO SCH (12:00)
--- NOTE | 2021-10-27 14:13 | Progress Note ---
Assessment and Plan 1. Acute kidney injury: Likely vasomotor JAYME, vasomotor. UA negative for protein and blood. Renal US showed mild R hydro. s/p matta catheter. Monitor renal function. Creatinine level is better. Avoid nephrotoxic agents. Meds dosage based on GFR. 2. FEN: Hypernatremia, improved, monitor. Hyperkalemia, Kayexalate as needed, monitor. Monitor lytes and volume status. 3. COVID-9 infection: PCR test positive. Asymptomatic, chest X-ray unremarkable. 4. History of CVA and TBI 5. Diabetes mellitus type 2: Hemoglobin A1c 5.9 6. Bladder obstruction: S/p matta catheter. 7. Hypertension: Monitor BP. Subjective: Patient was seen and examined at the bedside. Doing ok. Examination: General appearance: well-developed, appears stated age, no distress HEENT: atraumatic, TIM Neck: trachea midline Respiratory: diminished breath sounds bilaterally Heart: S1S2, regular, no murmur Abdomen: obese, soft, bowel sounds heard, NT Integumentary: no obvious rash noted Neurologic: alert, conversing, moving ext, confused Ext: no edema noted : Matta catheter Subjective Date of service: 10/27/21 Principal diagnosis: Hyper natremia, JAYME Objective - Vital Signs Vital signs: Vital Signs - 12hr 10/27/21 09:00 O2 Sat by Pulse 98 Oximetry - Lab 10/27/21 07:00 10/27/21 07:00 Most recent lab results Calcium 8.7 mg/dL (8.4-10.2) 10/27/21 07:00 Medications & Allergies - Medications Allergies/Adverse Reactions: Allergies No Known Allergies Allergy (Verified 11/26/18 01:03) Home Medications: Home Medications Medication Instructions Recorded Confirmed Last Taken Type Buspirone HCl [busPIRone] 15 mg PO QDAY #30 10/12/21 Unknown Rx Citalopram [Celexa] 20 mg PO QDAY #30 10/12/[address] [Depakote Dr] 250 mg PO QDAY #30 10/12/21 Unknown Rx Duloxetine HCl [Cymbalta] 40 mg PO QDAY #30 10/12/21 Unknown Rx Famotidine [Pepcid] 20 mg PO BID #60 10/12/21 Unknown Rx Insulin Detemir [Levemir Flextouch] 20 unit SQ HS #1 vial 10/12/21 Unknown Rx Lispro Insulin [HumaLOG] 5 unit SQ BID #1 vial 10/12/21 Unknown Rx Memantine 10 mg PO QDAY #30 10/12/21 Unknown Rx lisinopriL [Lisinopril] 10 mg PO QDAY #30 10/12/21 Unknown Rx Acetaminophen [Acetaminophen TAB] 650 mg PO Q4H PRN tablet 10/15/21 Unknown Rx Famotidine [Pepcid] 20 mg PO QAM tablet 10/15/21 Unknown Rx Active Medications: Generic Name Dose Route Start Last Admin Trade Name Freq PRN Reason Stop Dose Admin Acetaminophen 650 mg 10/08/21 02:13 10/11/21 13:26 Acetaminophen 325 Mg Tab PO 650 mg Q4H PRN Administration Pain MILD(1-3)/Fever >100.5/HARO Hydrocodone Bitart/Acetaminophen 7.5 mg 10/22/21 05:24 10/26/21 13:30 Hydrocodone/Acetaminophen [id number] Oral Liqd PO 7.5 mg Q6H PRN Administration Pain, Moderate (4-6) Famotidine 20 mg 10/11/21 10:00 10/27/21 09:53 Famotidine 20 Mg Tab PO 20 mg QAM ROYER Administration Heparin Sodium (Porcine) 5,000 unit 10/08/21 10:00 10/27/21 09:55 Heparin 5,000 Unit/1 Ml Vial SUB-Q 5,000 unit Q12HR ROYER Administration Insulin Human Lispro 0 unit 10/08/21 11:30 10/27/21 08:10 Insulin Lispro 100 Unit/Ml SUB-Q Not Given ACHS ROYER Protocol Levofloxacin 500 mg 10/26/21 10:00 10/27/21 09:54 Levofloxacin 500 Mg Tab PO 10/30/21 10:01 500 mg DAILY ROYER Administration Protocol Lorazepam 0.5 mg 10/22/21 05:24 Lorazepam 0.5 Mg Tab PO BID PRN Agitation Nystatin 1 applic 10/25/21 13:00 10/26/21 21:59 Nystatin Powder 15 Gm TP 1 applic BID ROYER Administration Sodium Chloride 10 ml 10/08/21 10:00 10/26/21 22:00 Sodium Chloride 0.9% 10 Ml Flush Syringe IV 10 ml BID ROYER Administration Sodium Chloride 10 ml 10/19/21 14:31 10/20/21 23:18 Sodium Chloride 0.9% 50 Ml Ivpb IV 10 ml PRN PRN Administration FLUSH Tamsulosin HCl 0.4 mg 10/24/21 10:00 10/27/21 09:53 Tamsulosin 0.4 Mg Cap PO 0.4 mg QDAY ROYER Administration Vancomycin HCl 125 mg 10/27/21 12:00 Vancomycin 250 Mg/10 Ml Oral Liqd PO 11/06/21 06:01 Q6HR [facility] Protocol
[2021-10-27] MEDS: VANCOMYCIN 250 MG/10 ML ORAL LIQD PO SCH (15:40)
[2021-10-27] MEDS: HYDROcodone/Acetaminophen 7.5-325MG-15ML ORAL LIQD PO PRN (15:46)
[2021-10-27] MEDS: NYSTATIN POWDER 15 GM TP SCH (22:28)
[2021-10-28] MEDS: VANCOMYCIN 250 MG/10 ML ORAL LIQD PO SCH ×2 (01:31→05:42)
[2021-10-28 07:00] VITALS: BP 138/79
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
--- NOTE | 2021-10-28 07:09 | Event Note ---
Date: 10/27/21 Patient for discharge in a.m. Discussed with case management
[2021-10-28] MEDS: INSULIN LISPRO 100 UNIT/ML SUB-Q SCH (08:22)
--- NOTE | 2021-10-28 12:12 | Progress Note ---
Assessment and Plan 1. Acute kidney injury: Likely vasomotor JAYME, vasomotor. UA negative for protein and blood. Renal US showed mild R hydro. s/p matta catheter. Monitor renal function. Creatinine level is better. Avoid nephrotoxic agents. Meds dosage based on GFR. 2. FEN: Hypernatremia, improved, monitor. Hyperkalemia, Kayexalate as needed, monitor. Monitor lytes and volume status. 3. COVID-9 infection: PCR test positive. Asymptomatic, chest X-ray unremarkable. 4. History of CVA and TBI 5. Diabetes mellitus type 2: Hemoglobin A1c 5.9 6. Bladder obstruction: S/p matta catheter. 7. Hypertension: Monitor BP. Subjective: Patient was seen and examined at the bedside. Doing ok. Examination: General appearance: well-developed, appears stated age, no distress HEENT: atraumatic, TIM Neck: trachea midline Respiratory: diminished breath sounds bilaterally Heart: S1S2, regular, no murmur Abdomen: obese, soft, bowel sounds heard, NT Integumentary: no obvious rash noted Neurologic: alert, conversing, moving ext, confused Ext: no edema noted : Matta catheter Subjective Date of service: 10/28/21 Principal diagnosis: Hyper natremia, JAYME Objective - Vital Signs Vital signs: Vital Signs - 12hr 10/28/21 10/28/21 05:32 08:48 Temperature 98.2 F Pulse Rate 92 H Respiratory 20 Rate Blood Pressure 138/79 O2 Sat by Pulse 97 94 Oximetry - Lab 10/27/21 07:00 10/27/21 07:00 Most recent lab results Calcium 8.7 mg/dL (8.4-10.2) 10/27/21 07:00 Medications & Allergies - Medications Allergies/Adverse Reactions: Allergies No Known Allergies Allergy (Verified 11/26/18 01:03) Home Medications: Home Medications Medication Instructions Recorded Confirmed Last Taken Type Buspirone HCl [busPIRone] 15 mg PO QDAY #30 10/12/21 Unknown Rx Citalopram [Celexa] 20 mg PO QDAY #30 10/12/[address] [Depakote Dr] 250 mg PO QDAY #30 10/12/21 Unknown Rx Duloxetine HCl [Cymbalta] 40 mg PO QDAY #30 10/12/21 Unknown Rx Famotidine [Pepcid] 20 mg PO BID #60 10/12/21 Unknown Rx Insulin Detemir [Levemir Flextouch] 20 unit SQ HS #1 vial 10/12/21 Unknown Rx Lispro Insulin [HumaLOG] 5 unit SQ BID #1 vial 10/12/21 Unknown Rx Memantine 10 mg PO QDAY #30 10/12/21 Unknown Rx lisinopriL [Lisinopril] 10 mg PO QDAY #30 10/12/21 Unknown Rx Acetaminophen [Acetaminophen TAB] 650 mg PO Q4H PRN tablet 10/15/21 Unknown Rx Famotidine [Pepcid] 20 mg PO QAM tablet 10/15/21 Unknown Rx Active Medications: Generic Name Dose Route Start Last Admin Trade Name Freq PRN Reason Stop Dose Admin Acetaminophen 650 mg 10/08/21 02:13 10/11/21 13:26 Acetaminophen 325 Mg Tab PO 650 mg Q4H PRN Administration Pain MILD(1-3)/Fever >100.5/HARO Hydrocodone Bitart/Acetaminophen 7.5 mg 10/22/21 05:24 10/27/21 15:46 Hydrocodone/Acetaminophen [id number] Oral Liqd PO 7.5 mg Q6H PRN Administration Pain, Moderate (4-6) Famotidine 20 mg 10/11/21 10:00 10/27/21 09:53 Famotidine 20 Mg Tab PO 20 mg QAM ROYER Administration Heparin Sodium (Porcine) 5,000 unit 10/08/21 10:00 10/27/21 22:20 Heparin 5,000 Unit/1 Ml Vial SUB-Q 5,000 unit Q12HR ROYER Administration Insulin Human Lispro 0 unit 10/08/21 11:30 10/28/21 08:22 Insulin Lispro 100 Unit/Ml SUB-Q 4 unit ACHS ROYER Administration Protocol Levofloxacin 500 mg 10/26/21 10:00 10/27/21 09:54 Levofloxacin 500 Mg Tab PO 10/30/21 10:01 500 mg DAILY ROYER Administration Protocol Lorazepam 0.5 mg 10/22/21 05:24 Lorazepam 0.5 Mg Tab PO BID PRN Agitation Nystatin 1 applic 10/25/21 13:00 10/27/21 22:28 Nystatin Powder 15 Gm TP 1 applic BID ROYER Administration Sodium Chloride 10 ml 10/08/21 10:00 10/27/21 22:25 Sodium Chloride 0.9% 10 Ml Flush Syringe IV 10 ml BID ROYER Administration Sodium Chloride 10 ml 10/19/21 14:31 10/20/21 23:18 Sodium Chloride 0.9% 50 Ml Ivpb IV 10 ml PRN PRN Administration FLUSH Tamsulosin HCl 0.4 mg 10/24/21 10:00 10/27/21 09:53 Tamsulosin 0.4 Mg Cap PO 0.4 mg QDAY ROYER Administration Vancomycin HCl 125 mg 10/27/21 12:00 10/28/21 05:42 Vancomycin 250 Mg/10 Ml Oral Liqd PO 11/06/21 06:01 125 mg Q6HR ROYER Administration Protocol
== END 2021-10-28 10:00 | disposition home health service (06) | DRG 682 ==
LOC: ED 13:40 → 4A 15:47 → 3A 10-08 02:31 → 4A 10-09 02:09 → 3A 10-17 16:25
PROVIDERS: ADMIT Internal Medicine; ATTEND Hospitalist
DX: N17.0 Acute kidney failure with tubular necrosis (principal); U07.1 COVID-19; E87.0 Hyperosmolality and hypernatremia; E44.0 Moderate protein-calorie malnutrition; N39.0 Urinary tract infection, site not specified; I10 Essential (primary) hypertension; Z68.26 Body mass index [BMI] 26.0-26.9, adult; E11.9 Type 2 diabetes mellitus without complications; E87.5 Hyperkalemia; E86.0 Dehydration; N13.9 Obstructive and reflux uropathy, unspecified
CPT/HCPCS: 36415; 70450; 71045; 76770; 80048; 80053; 81001; 82607; 82728; 82747; 82962; 83036; 83550; 84145; 85007; 85025; 85027; 86140; 87040; 87076; 87086; 87186; 93970; G0378; J3490; Q9967; J0696; J1644; J1815; J2060; J3370; J7030; J7070; U0003